=== PATIENT | female | born 1965 | race Caucasian/White ===

== ENCOUNTER 2022-01-21 14:41 | Emergency (ER) | payer MEDICAID, SELFPAY ==
[2022-01-21 15:36] VITALS: BP 108/58; PULSE 67; RESP 18; TEMP 36.9; O2SAT 100; BMI 22.5
--- NOTE | 2022-01-21 16:07 | ED.GENADULT ---
HPI - General Adult General Time Seen by Provider: 16:07 Date Seen: 01/21/22 Chief complaint: Skin/Abscess/Foreign Body Stated complaint: Painful Rash on Face Time Seen by Provider: 01/21/22 15:26 Source: patient Mode of arrival: ambulatory Limitations: no limitations History of Present Illness HPI narrative: Patient is a 56 year white female who has bilateral reddened cheeks inner tender and painful. She has had some cracks in the corner of her mouth bilaterally. No fevers, no chills, no other history of similar illness. She is allergic to Bactrim. She denies immune suppression. Denies cough for COVID symptoms, presents with reddened cheeks that her tender and painful to touch. No allergens are no new medications Related Data Previous Rx's Medication Instructions Recorded cephalexin 500 mg capsule 500 mg PO QID #20 caps 01/21/22 Allergies Allergy/AdvReac Type Severity Reaction Status Date / Time sulfamethoxazole Allergy Verified 01/21/22 15:36 [From Bactrim] trimethoprim [From Bactrim] Allergy Verified 01/21/22 15:36 Review of Systems Status of ROS: Reports: 6 or more systems reviewed and unremarkable except as noted in History and below PFSH PFS Medical History (Updated 01/21/22 @ 16:19 by Maggy Rivera RN) No significant past medical history Surgical History (Updated 01/21/22 @ 16:21 by Maggy Rivera RN) H/O neck surgery H/O rotator cuff surgery H/O tubal ligation H/O: hysterectomy Social History Smoking Status: Current every day smoker How often do you have a drink containing alcohol: monthly or less AUDIT-C Alcohol total score: 1 Non-prescribed substance use: denies use Exam Narrative: Exam Narrative: Objective vital signs unremarkable she is afebrile HEENT shows bilateral cheek warmth she has got some cracking of the corner of her mouth, and there is warmth of her lower maxillary cheeks down toward corners were mouth bilaterally. Throat is clear. Neck is supple. No eye involvement noted. No blisters or herpetic type rash. Const: Vital Signs, click to edit/add: Vital Signs - 24 hr 01/21/22 15:36 Temperature 98.4 F Pulse Rate [Pulse Oximeter] 67 Respiratory Rate 18 Blood Pressure [Ri ght Upper Arm] 108/58 L Pulse Oximetry 100 Oxygen Delivery Me thod Room Air Course Vital Signs Vital signs: Initial Vital Signs Temperature 98.4 F 01/21/22 15:36 Temperature Source Temporal Artery Scan 01/21/22 15:36 Pulse Rate 67 01/21/22 15:36 Pulse Rhythm 01/21/22 15:36 Respiratory Rate 18 01/21/22 15:36 Blood Pressure 108/58 L 01/21/22 15:36 Blood Pressure Mean 74 01/21/22 15:36 Blood Pressure Position Supine 01/21/22 15:36 Pulse Oximetry 100 01/21/22 15:36 Oxygen Delivery Method 01/21/22 15:36 Vital Signs Temperature 98.4 F 01/21/22 15:36 Pulse Rate 67 01/21/22 15:36 Respiratory Rate 18 01/21/22 15:36 Blood Pressure 108/58 L 01/21/22 15:36 Pulse Oximetry 100 01/21/22 15:36 Oxygen Delivery Method 01/21/22 15:36 Temperature 98.4 F 01/21/22 15:36 Pulse Rate 67 01/21/22 15:36 Respiratory Rate 18 01/21/22 15:36 Blood Pressure 108/58 L 01/21/22 15:36 Pulse Oximetry 100 01/21/22 15:36 Oxygen Delivery Method 01/21/22 15:36 Medical Decision Making MDM Narrative Medical decision making narrative: Patient has cracks in the corner of her mouth that certainly could be a entry port for bacteria, but would be unusual to have bilateral cellulitis although she is warm and the areas of the cheek are tender. There is no fluctuance or abscess palpable. I would recommend covering for allergy with Benadryl 50 mg 3 times a day for the next 3-5 days, will give her Rocephin injection 500 mg IM and cover with Keflex 500 q.i.d. x5 days. Warm pack the cheeks bilaterally, update primary care in the next couple of days, may use a topical lotion as needed. Discharge Plan Discharge Clinical Impression: Cellulitis Patient Disposition: Home w/ Parent or Adult Condition: Stable Instructions: Cellulitis (ED), Warm Compress or Soak (ED) Additional Instructions: Keflex for home 4 times a day x5 days, warm compresses to the cheeks, Benadryl 25-50 mg 3 times a day for the next 3-5 days, update primary care doctor in 2 days with symptoms, return sooner worsening or changes. Activity Level: No Restrictions Discharge Diet: Regular Prescriptions: New cephalexin 500 mg capsule 500 mg PO QID Qty: 20 0RF Stand Alone Forms: [employer] Info Instructions
[2022-01-21] MEDS: diphenhydrAMINE 25 MG CAPSULE 50 MG PO (16:15)
[2022-01-21] MEDS: cefTRIAXone 500 MG VIAL IM (16:15)
== END 2022-01-21 16:29 | disposition home or self-care (01) ==
LOC: ED 16:14
PROVIDERS: Emergency Provider Family Medicine; PCP Physician Assistant Medical
DX: L03.211 Cellulitis of face (principal)
CPT/HCPCS: 96372; 99283; 99284; A9270; J0696

== ENCOUNTER 2022-03-15 12:46 | Emergency (ER) | payer MEDICAID, SELFPAY ==
[2022-03-15 12:56] VITALS: BP 100/69; PULSE 72; RESP 16; TEMP 36.6; O2SAT 95; BMI 22.6
--- NOTE | 2022-03-15 13:15 | CRLHL7_ITS ---
For Patients: As a result of the Century Cures Act, medical imaging exams and procedure reports are released immediately into your electronic medical record. You may view this report before your referring provider. If you have questions, please contact your health care provider. INDICATION: History of DVT, right calf tenderness. COMPARISON: None. TECHNIQUE: A compression venous ultrasound exam was performed of the right lower extremity using dempsey-scale imaging, color Doppler and spectral Doppler analysis. FINDINGS: Sonographic imaging of the right lower extremity demonstrates normal compressibility and color Doppler venous blood flow within the common femoral vein, femoral vein, deep femoral vein, and the proximal greater saphenous vein. There is incompressible thrombus within the right popliteal, posterior tibial, and peroneal veins. There is minimal flow in the popliteal vein. No flow in the posterior tibial or peroneal veins. IMPRESSION: 1. Positive for acute DVT in the right popliteal, posterior tibial, and peroneal veins. 2. Findings discussed with Graciela James at 2:28 p.m. on 03/15/2022. Dictated by Xochitl Armando MD @ 03/15/2022 2:24:58 PM (Electronically Signed)
--- NOTE | 2022-03-15 14:34 | ED_ITS ---
HPI - General Adult General Chief complaint: Extremity Pain/Injury, Lower Stated complaint: poss blood clot in right leg Time Seen by Provider: 03/15/22 14:27 Source: patient Mode of arrival: ambulatory Limitations: no limitations History of Present Illness HPI narrative: 56-year-old female coming in today with leg pain of the right lower extremity it has been present for about 4 days. She denies any trauma to the leg. She states that it is swollen. Patient does have a history of DVT. States that she had a blood clot in the left lower extremity as well as a PE in the past. Has not been on any blood thinners for many years. She denies any chest pain or SOB. No back pain, no cough. Related Data Previous Rx's Medication Instructions Recorded cephalexin 500 mg capsule 500 mg PO QID #20 caps 01/21/22 apixaban 5 mg (74 tabs) tablets in 5 mg PO BID #74 ea 03/15/22 a dose pack (Eliquis DVT-PE Treat 30D Start) Allergies Allergy/AdvReac Type Severity Reaction Status Date / Time sulfamethoxazole Allergy Verified 01/21/22 15:36 [From Bactrim] trimethoprim [From Bactrim] Allergy Verified 01/21/22 15:36 Review of Systems Status of ROS: Reports: 10 or more systems reviewed and unremarkable except as noted in History and below [facility] Medical History No significant past medical history Surgical History H/O neck surgery H/O rotator cuff surgery H/O tubal ligation H/O: hysterectomy Social History Smoking Status: Current every day smoker How often do you have a drink containing alcohol: monthly or less AUDIT-C Alcohol total score: 1 Non-prescribed substance use: denies use Exam Narrative: Exam Narrative: Well-nourished well-developed patient in no acute distress. Alert and oriented. Answers questions appropriately. Mood and affect are appropriate. Thoughts are goal oriented and rational. No tangential or magical thinking noted. Patient speaks in full sentences without needing to catch her breath. HEENT: Normocephalic atraumatic. Pupils are equally round reactive to light. Extraocular muscles are intact. Conjunctivae are moist without any icterus noted. Moist mucous membranes. Posterior pharynx is normal. Cardiovascular: Heart is regular rate and rhythm S1 and S2 are present without any murmurs. Lungs: Clear to auscultation bilaterally no wheezes rhonchi or rales are appreciated. Patient takes deep breaths without any discomfort. Extremities: Left lower extremity unremarkable. Right lower extremity is tender to palpation from the knee to the ankle, the area is swollen. It looks like she has chronic venous discoloration of that ankle as well. Skin: Well perfused . Const: Vital Signs, click to edit/add: Vital Signs - 24 hr 03/15/22 12:56 Temperature 97.8 F Pulse Rate [Pulse Oximeter] 72 Respiratory Rate 16 Blood Pressure [Ri ght Upper Arm] 100/69 Pulse Oximetry 95 Oxygen Delivery Me thod Room Air Course Course Hospital Course: Right lower quadrant ultrasound does show DVTs. Vital Signs Vital signs: Initial Vital Signs Temperature 97.8 F 03/15/22 12:56 Temperature Source Temporal Artery Scan 03/15/22 12:56 Pulse Rate 72 03/15/22 12:56 Pulse Rhythm 03/15/22 12:56 Respiratory Rate 16 03/15/22 12:56 Blood Pressure 100/69 03/15/22 12:56 Blood Pressure Mean 79 03/15/22 12:56 Blood Pressure Position Sitting 03/15/22 12:56 Pulse Oximetry 95 03/15/22 12:56 Oxygen Delivery Method 03/15/22 12:56 Vital Signs Temperature 97.8 F 03/15/22 12:56 Pulse Rate 72 03/15/22 12:56 Respiratory Rate 16 03/15/22 12:56 Blood Pressure 100/69 03/15/22 12:56 Pulse Oximetry 95 03/15/22 12:56 Oxygen Delivery Method 03/15/22 12:56 Temperature 97.8 F 03/15/22 12:56 Pulse Rate 72 03/15/22 12:56 Respiratory Rate 16 03/15/22 12:56 Blood Pressure 100/69 03/15/22 12:56 Pulse Oximetry 95 03/15/22 12:56 Oxygen Delivery Method 03/15/22 12:56 Medical Decision Making MDM Narrative Medical decision making narrative: 56-year-old female with prior history of DVT and PE presenting with a DVT today. She will be started on Eliquis. Given her extensive history and her extensive DVT and presentation today I do recommend a chest CT to rule out PE as well however patient refuses. She will follow up with her primary care provider this coming week. We discussed the possibility of needing vascular intervention - this is a conversation I would like for her to have with her primary care provider. Imaging Data Right lower extremity DVT: Attestation: I have reviewed the pertinent imaging results. Radiologist's impression: A compression venous ultrasound exam was performed of the right lower extremity using dempsey-scale imaging, color Doppler and spectral Doppler analysis. FINDINGS: Sonographic imaging of the right lower extremity demonstrates normal compressibility and color Doppler venous blood flow within the common femoral vein, femoral vein, deep femoral vein, and the proximal greater saphenous vein. There is incompressible thrombus within the right popliteal, posterior tibial, and peroneal veins. There is minimal flow in the popliteal vein. No flow in the posterior tibial or peroneal veins. IMPRESSION: 1. Positive for acute DVT in the right popliteal, posterior tibial, and peroneal veins. Discharge Plan Discharge Clinical Impression: DVT (deep venous thrombosis) Patient Disposition: Home, Self-Care Condition: Stable Additional Instructions: Follow-up with your primary care provider this next coming week to discuss next steps. Start Eliquis right away. Prescriptions: New Eliquis DVT-PE Treat 30D Start 5 mg (74 tabs) tablets,dose pack 5 mg PO BID Qty: 74 0RF No Action cephalexin 500 mg capsule 500 mg PO QID Qty: 20 0RF Follow Up/Referrals: Ava Chirinos PA-C [Primary Care Provider] - Stand Alone Forms: [employer] Info Instructions
--- OUTSIDE RECORDS SUMMARY | 2022-03-15 14:39 | XMS_ITS | Clinical Summary ---
:1965 Author Organization [facility] [place] [address] Care Team Providers Name Role Phone Marquise Hernández MD Unavailable [phone] Dain Stephens MD Unavailable [facility] Unavailable Unavailable Ava Chirinos Primary Care Provider [phone] Allergies Active Allergy Reactions Severity Noted Date Comments Sulfamethoxazole Rash 01/10/2015 Sulfamethoxazole-Trimethoprim Rash 01/10/2015 Medications Medication Sig Dispensed Refills Start End Date Status Date topiramate (TOPAMAX) Take 50 mg by 0 Active 50 mg tablet mouth at bedtime. HYDROcodone-acetamin 0 Active ophen, 7.5-325 mg, 0 (NORCO 7.5-325) 7.5-325 mg per tablet methocarbamoL 1 or 2 tabs 180 tablet 2 Act terra (ROBAXIN) 500 mg at night for 0 tabletIndications: muscle Chronic bilateral relaxer. low back pain with left-sided sciatica meclizine (ANTIVERT) Take 1 tablet 15 tablet 0 Active 12.5 mg by mouth 3 0 tabletIndications: times daily Dizziness if needed. gabapentin TAKE TWO 0 Active (NEURONTIN) 300 mg CAPSULES BY 1 capsule MOUTH TWICE A DAY aluminum-magnesium TAKE 30ML BY 355 mL 0 Active hydroxide-simethicon MOUTH FOUR 1 e (Mintox Maximum TIMES A DAY Strength) 400-400-40 IF NEEDED FOR mg/5 mL GI UPSET OR suspensionIndication HEARTBURN s: Gastroesophageal reflux disease, unspecified whether esophagitis present oxyCODONE 0 Active (ROXICODONE) 5 mg 2 immediate release tablet divalproex (DEPAKOTE Take 4 120 Tablet 2 Active ER) 500 mg Tablets 2 Extended-Release (2,000 mg) by tabletIndications: mouth at Bipolar 1 disorder bedtime. (HC) hydrOXYzine HCL Take 1-2 60 Tablet 3 Acti ve (ATARAX) 25 mg tablets by 2 tabletIndications: mouth at Anxiety bedtime. lurasidone (Latuda) Take 1 Tablet 30 Tablet 2 Active 80 mg (80 mg) by 2 tabletIndications: mouth with Bipolar 1 disorder dinner. (HC) sertraline (ZOLOFT) Take 1 Tablet 30 Tablet 1 Active 50 mg (50 mg) by 2 tabletIndications: mouth once Chronic daily. post-traumatic stress disorder (PTSD) traZODone (DESYREL) Take one-half 90 Tablet 3 Active 50 mg to three 2 tabletIndications: tablets by Insomnia, mouth at unspecified type bedtime if needed for sleep. pantoprazole Take 1 Tablet 90 Tablet 3 Act terra (PROTONIX) 40 mg (40 mg) by 2 delayed-release mouth once tabletIndications: daily. Gastroesophageal reflux disease, unspecified whether esophagitis present tolterodine (DETROL Take 1 90 Capsule 3 Active LA) 2 mg Capsule (2 2 Extended-Release mg) by mouth capsuleIndications: once daily. Urge incontinence nitrofurantoin Take 1 90 Capsule 3 Acti ve macrocrystals/monohy Capsule (100 2 drate (MACROBID) 100 mg) by mouth mg once daily. capsuleIndications: Recurrent UTI diazePAM (VALIUM) 2 Take 1 tablet 2 Tablet 0 Active mg 1/2 hour 2 tabletIndications: prior to mri, Paresthesias may repeat x 1 albuterol HFA Inhale 1-2 1 Each 2 02/20/20 Disco ntinued (Ventolin HFA) 90 Puffs by 1 22 (* Patient states mcg/actuation mouth every 6 no longer inhalerIndications: hours if taking/Not on SOB (shortness of needed. se nding facility breath) list) aluminum-mag Take 30 mL by 355 mL 0 02/20/20 Dis continued hydroxide-simethicon mouth 4 times 1 (*Patient states e (MAALOX PLUS; daily if no l onger MYLANTA) needed for GI taking /Not on suspensionIndication Upset or sending facility s: Epigastric Heartburn. list) abdominal pain, Acute superficial gastritis without hemorrhage nabumetone (RELAFEN) Take 1 Tablet 60 Tablet 0 02/19 Discontinued 500 mg (500 mg) by 2 22 (*Patien t states tabletIndications: mouth two n o longer Chronic pain of both times daily taking/Not on knees with meals. sending facility list) predniSONE 2 tabs daily 11 Tablet 0 03/02/20 d (DELTASONE) 20 mg for 3 days, 1 2 tabletIndications: tab daily for Chronic pain of both 3 days, and knees 1/2 tab daily for 4 days. 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 Feb 2019: Dr. Stephens did left Shoulder bursa injection. Chronic bilateral low back pain with left-sided sciati ca 08/20/2017 Overview: ~ August 2017: L4-L5 [place] epidural steroid injection by Dr. Ellington. ~ June 2018: L4-L5 Interlaminar epidu ral steroid injection by Dr. Ellington, Controlled substance agreement signed 12/09/2016 Overview: Signed 03-16-15 Lorin Costello, [place] , VAULT ATTENDANT/psychiatry. Hyperplastic colon polyp 02/21/2016 Overview: Colonoscopy 02/2016 hyperplastic colon po lyps, colon biopsies normal repeat in 10 years Chronic post-traumatic stress disorder (PTSD) 02/03/20 15 Encounter for long-term (current) use of medications 0 02/02/2015 Bipolar 1 disorder 01/10/2015 Anxiety Chronic neck pain Resolved Problems Problem Noted Date Resolved Date Depression 03/04/2016 Encounters Date Type Specialty Care Team Description 03/14/2022 Hospital Encounter Roger Welch MD 03/14/2022 Travel 03/06/2022 Office Visit Roger Welch Consult MD Praveen (Consult-Christian mendez) 03/06/2022 Travel 02/20/2022 Telephone Ava Chirinos Results [facility] Lees 02/20/2022 Telephone Ava Chirinos Results [facility] 02/19/2022 Office Visit Dain Stephens Consult (Bilat eral knee MD Khris pain left worse than right ) 02/19/2022 Office Visit Ava Chirinos Physical (7 4 years old); JAYSON Lees Concerns (Tingl ing on L side of head an d ear x 5 months); Ear Pr oblem (Ringing in ear s x years) 02/19/2022 Ancillary Procedure 02/19/2022 Travel 02/16/2022 Refill Ava Chirinos Refill Requ JAYSON Madrigal (Tolterodine) 02/12/2022 Phone Office Visit Service, [facility] Management; MD Fabrice Follow Up 02/07/2022 Telephone Ava Chirinos Lab (Hep C Screening) [facility]es 02/07/2022 Telephone Ava Chirinos Lab (Low Do se CT Scan [facility] Lees for Lung Cancer /) 02/07/2022 Telephone Ava Chirinos Test Result s [facility]es 02/06/2022 Ancillary Procedure 02/06/2022 Office Visit Ava Chirinos Arthritis ( Both knees x [facility] Lees 6 months) 02/06/2022 Travel 01/24/2022 Refill Ava Chirinos Refill Requ est [facility]es (Tolterodine) 12/20/2021 Office Visit Service, Vero Avina MD 12/20/2021 Travel from Last 3 Months Immunizations Name Administration Dates Next Due AMB INFLUENZA, IIV4 (AGE=>6MOS) MDV 03/19/2018 (Flu Clinic Only) AMB Influenza, IIV4 PF (=>6 mos 05/06/2016 Flulaval,Fluzone Fluarix)(Flu Clinic Only) COVID-19 vaccine (Ice EnergyJ&J) PF, 08/19/2020 MDV COVID-19 vaccine (Inviragen 02/19/2022 30mcg/0.3mL) 12YO+ BIVALENT BOOSTER PF, MDV Influenza, IIV3 (Age >=3 years) 02/14/2015 Influenza, IIV4 02/19/2022, 03/16/2021, 03/17/2019, 04/15/2017 Pneumococcal Conj 20-valent (Prevnar 02/19/2022 20) Tdap 02/14/2015 Zoster (Shingrix-RZV, recombinant) 03/16/2021, 11/13/2020 Family History Medical History Relation Name Comments Drug Abuse Brother Psychiatric illness Brother Good Health Daughter 1 Good Health Daughter 2 Diabetes Father Heart Disease Father Hypertension Father Stroke Father Drug Abuse Half-Brother Psychiatric illness Half-Brother depression Good Health Half-Sister Other Maternal Grandfather Cancer Mother lung Diabetes Mother Hypertension Mother Other Other Chronic neck jenni n Good Health Son Relation Name Status Comments Brother Daughter 1 Daughter 2 Father Half-Brother Half-Sister Other Maternal Grandfather Mother Other Son Social History Tobacco Use Types Packs/Day Years Used Date Current Every Day Smoker Cigarettes 1 38 Sta rted: 09/05/2017 Smokeless Tobacco: Never Used Tobacco Cessation: Ready to Quit: Yes Comments: refused handouts Alcohol Use Standard Drinks/Week Comments Not Currently 0 (1 standard drink = 0.6 oz pure alcoho l) on occasion Alcohol Habits Answer Date Recorded How often do you have a drink containing alcohol? Monthly or less 11/30/2019 How many drinks containing alcohol do you have on a Not aske d typical day when you are drinking? How often do you have six or more drinks on one Not asked occasion? Comment: on occasion 01/16/2017 Sex Assigned at Date Recorded Not on file COVID-19 Exposure Response Date Recorded In the last 10 days, have you been in contact with No / Unsu re 03/14/2022 9:42 AM CDT someone who was confirmed or suspected to have Coronavirus/COVID-19? Obstetrics History Para Term AB IAB SAB Ectopic Multiple Living Live Births 5 3 Date Outcome GA Total Labor/2nd/3rd Weight Sex Delivery Anes PTL Laverne A 1 A5 Name Clin Labor Last Filed Vital Signs Vital Sign Reading Time Taken Comments Blood Pressure 113/69 03/06/2022 2:48 PM CDT Pulse 66 03/06/2022 2:48 PM CDT Temperature 37 ??C (98.6 ??F) 02/21/2021 12:01 PM CDT Respiratory Rate 16 02/21/2021 12:01 PM CDT Oxygen Saturation 97% 03/06/2022 2:48 PM CDT Inhaled Oxygen Concentration - - Weight 61.9 kg (136 lb 6.4 oz) 03/06/2022 2:48 PM CDT Height 165.1 cm (5' 5) 02/19/2022 11:51 AM CDT Body Mass Index 22.7 02/19/2022 11:51 AM CDT Plan of Treatment Health Maintenance Due Date Last Done Comments Low Dose CT (for lung CA) age 0106/15/2017 08/19/2016 50-80 Depression screening for age 12+ 02/12/2023 02/12/2022, , 12/02/2019, Additional history exists BMI (ht and wt on same day) for 02/19/2023 02/19/2022, 12/07, age 18+ 07/16/2021, Additional history exists Mammogram for age 45-75 02/19/2023 02/19/2022, 05/06/2016, 05/03/2015, Additional history exists Tetanus booster 02/14/2025 02/14/2015 Colonoscopy through age 75 02/19/2026 02/20/2016, 6, 02/20/2016 Lipids for age 45-75 08/27/2026 08/27/2021, 11/05/2018, 04/25/2015 Tdap Completed 02/14/2015 Zoster (shingles) series for age Completed 03/16/2021, 12/2020 50+ COVID-19 vaccine series Completed 02/19/2022, 06/21/2021, 08/19/2020 Hepatitis C screening for age Completed 02/19/2022 18-79 Influenza for age 50-64 Completed 02/19/2022, 03/16/2021, 03/17/2019, Additional history exists Pneumococcal series for age 19-64 Completed 02/19/2022 Procedures Procedure Name Priority Date/Time Associated Diagnosis Comme nts ANTI HCV Routine 02/19/2022 12:53 PM Need for hepatitis C Results for this CDT screening test procedure are in the results section. XR MAMMO BILAT Routine 02/19/2022 11:42 AM Breast cancer Resul ts for this SCREENING CDT screening procedure are i n the results section. XR KNEE WB 2 VIEWS Routine 02/06/2022 3:35 PM Chronic pain of both Results for this BILATERAL AND 1 CDT knees procedure ar e in VIEW BILATERAL the results section. from Last 3 Months Results ANTI HCV (02/19/2022 12:53 PM CDT) [facility] Method Time Signature HEPATITIS C Non-Reacti Non-Reacti 02/20/2022 [facility] ANTIBODY ve ve 1:31 PM CDT [facility] Comment: Antibodies to HCV not detected; does not exclude the possibility of exposure to HCV. Specimen Anatomical Collection Method / Collection Time Recei cristiano Time (Source) Location / Volume Laterality Blood BLOOD SPECIMEN / Venipuncture / 02/19/2022 12:53 02/19 Unknown Unknown PM CDT 12:53 PM CDT [facility] SEND OUTS Performing Organization Address City/State/ZIP Code Phon e Number [facility] [address] [place] [address] [facility]AT[facility] LABORATORY XR MAMMO BILAT SCREENING (02/19/2022 11:42 AM CDT) Anatomical Region Laterality Modality BREASTS, Breast Left, Breast Right Bilateral Mammo graphy Specimen (Source) Anatomical Location Collection Method / Collectio n Time Received Time / Laterality Volume Impressions 02/19/2022 1:27 PM CDT ??There is no radiographic evidence for malignancy. ??Recommend annual mammograms. MAMMOGRAM ASSESSMENT: ??ACR 1 Negative PATIENTS: You will also receive a letter with your examination results in an easy to read format. ??If you have qu estions about your results, please contact your referring provider. Narrative 02/19/2022 1:27 PM CDT For Patients: As a result of the s Act, medical imaging exams and procedure reports are released immediately into your electronic medical record. You may view this report before your referring provider. If you have questions, please contact [facility] provider. XR MAMMO BILAT SCREENING [[id number]] CLINICAL HISTORY: ??This is an asymptoma tic 56 y.o. patient. INDICATION FOR EXAM: Mammogram Screening . TECHNIQUE: CC & MLO views were obtained. ??This study was evaluated with the assistance of Computer-Aided Detecti on. COMPARISON FILM: Yes 05/06/16 [facility] 04/25/15 [facility] FINDINGS: ??The breasts are heterogeneou sly dense, which may obscure small masses. There are no dominant masses, glass spicious micro calcifications or areas of architectural distortion. [facility]ER MAMMO XR KNEE WB 2 VIEWS BILATERAL AND 1 VIEW BILATERAL (02/06/2022 3:35 PM CDT) Anatomical Region Laterality Modality KNEES Computed Radiography Specimen (Source) Anatomical Collection Method Collection Time Re ceived Time Location / / Volume Laterality 02/06/2022 6:42 PM CDT Narrative 02/06/2022 6:42 PM CDT For Patients: ??As a result of the s Act, medical imaging exams and procedure report s are released immediately into your [facility] medical record. ??You may view this report before your referring provider. ??If you have questions, please contact your health care provider. Indication: Chronic pain of both knees. Technique: Three views. Comparison: None. Findings/Impression: Right knee: No fracture or malalignment. No joint space narrowing or significant osteophytes. Neutral patellar tracking. Left knee: No fracture or malalignment. No joint space narrowing or significant osteophytes. Neutral patellar tracking. Dictated by Chase Barboza MD @ Feb 06 ??6:42PM (Electronically Signed) ?? Procedure Note Chase Barboza MD - 02/06/2022Form atting of this note might be different from the original. For Patients: As a result of the ntury Cures Act, medical imaging exams and procedure reports are released immediately into your electronic medical record. You may view this report before your referring provider. If you have questions, please contact yo health care provider. Indication: Chronic pain of both knees. Technique: Three views. Comparison: None. Findings/Impression: Right knee: No fracture or malalignment. No joint space narrowing or significant osteophytes. Neutral patellar tracking. Left knee: No fracture or malalignment. No joint space narrowing or significant osteophytes. Neutral patellar tracking. 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
== END 2022-03-15 15:05 | disposition home or self-care (01) ==
PROVIDERS: Emergency Provider Family Medicine; PCP Physician Assistant Medical
DX: I82.501 Chronic embolism and thrombosis of unspecified deep veins of right lower extremity (principal)
CPT/HCPCS: 93971; 99283; 99284

== ENCOUNTER 2022-09-13 11:26 | Emergency (ER) | payer MEDICAID, SELFPAY ==
[2022-09-13 11:34] VITALS: BP 115/72; PULSE 69; RESP 18; TEMP 36.1; O2SAT 99; BMI 26.5
--- NOTE | 2022-09-13 11:54 | CRLHL7_ITS ---
For Patients: As a result of the Century Cures Act, medical imaging exams and procedure reports are released immediately into your electronic medical record. You may view this report before your referring provider. If you have questions, please contact your health care provider. INDICATION: bilateral calf pain; hx DVT on eliquis COMPARISON: 03/15/2022 TECHNIQUE: A compression venous ultrasound exam was performed of both lower extremities using dempsey scale imaging, color Doppler and spectral Doppler analysis. FINDINGS: Sonographic imaging of the lower extremities demonstrates normal compressibility and color Doppler venous blood flow within the common femoral, deep femoral, and proximal greater saphenous veins. Within the thighs the femoral veins are patent and compressible. At a lower level the popliteal and posterior tibial veins also show normal compressibility and color Doppler venous blood flow. IMPRESSION: No evidence of deep vein thrombosis within either the left or right lower extremity. The previously noted right-sided DVT is no longer present. Dictated by Nestor Sandra MD @ 09/13/2022 12:45:46 PM (Electronically Signed)
--- NOTE | 2022-09-13 11:55 | ED_ITS ---
HPI - General Adult General Chief complaint: Extremity Pain/Injury, Lower Stated complaint: Cramps in calves Time Seen by Provider: 09/13/22 11:38 History of Present Illness HPI narrative: This 57-year-old female comes in reporting bilateral calf pain. She states that this is been present for about a week and reports a fall that occurred prior to this. She is ambulatory. She states that she has a nerve stimulator in her back. She also reports a history of deep venous thrombosis and is currently taking Eliquis. She states that the pain in her calves is bilateral constant. She arrives here with normal vital signs and does not have any chest pain or shortness of breath. Related Data Home Medications Medication Instructions Recorded Confirmed divalproex 500 mg tablet,extended 500 mg PO QDAY 05/14/22 05/14/22 release 24 hr gabapentin 300 mg capsule 600 mg PO QHS 05/14/22 05/14/22 hydrocodone 7.5 mg-acetaminophen tab PO QDAY PRN 05/14/22 05/14/22 325 mg tablet hydroxyzine HCl 25 mg tablet 25 mg PO QHS 05/14/22 05/14/22 lidocaine 5 % topical ointment 1 applic topical QHS PRN 05/14/22 05/14/22 lurasidone 80 mg tablet (Latuda) 80 mg PO QDAY 05/14/22 05/14/22 nitrofurantoin 100 mg PO DAILY 05/14/22 05/14/22 monohydrate/macrocrystals 100 mg capsule pantoprazole 40 mg tablet,delayed 40 mg PO QDAY 05/14/22 05/14/22 release sertraline 50 mg tablet 50 mg PO QDAY 05/14/22 05/14/22 tolterodine 2 mg capsule,extended 2 mg PO QDAY 05/14/22 05/14/22 release 24 hr topiramate 50 mg tablet 50 mg PO QDAY 05/14/22 05/14/22 trazodone 50 mg tablet 50 mg PO QHS PRN 05/14/22 05/14/22 Previous Rx's Medication Instructions Recorded apixaban 5 mg (74 tabs) tablets in 5 mg PO BID #74 ea 03/15/22 a dose pack (Eliquis DVT-PE Treat 30D Start) cyclobenzaprine 10 mg tablet 10 mg PO TID #15 tabs 09/13/22 Allergies Allergy/AdvReac Type Severity Reaction Status Date / Time sulfamethoxazole Allergy Verified 05/14/22 14:29 [From Bactrim] trimethoprim [From Bactrim] Allergy Verified 05/14/22 14:29 Review of Systems Status of ROS: Reports: 10 or more systems reviewed and unremarkable except as noted in History and below Narrative: Constitutional: No fevers, no weight gain or loss. Eyes: No discharge. No vision changes. HENT: No congestion, no sore throat, no ear pain. Cardiovascular: No chest pain, no palpitations. Respiratory: No shortness of breath, no wheezes, no cough. Gastrointestinal: No abdominal pain, no vomiting, no diarrhea. Genitourinary: No dysuria, no hematuria. Musculoskeletal: Normal range of motion. Chronic low back pain. Bilateral lower leg pain in the calf region. Skin: No rashes, no pruritis. Neurological: No dizziness, weakness, sensory change, speech change. Endo/Heme/Allergies: No bruising or bleeding. No polydipsia. Pysch: no suicidality, no anxiety, no insomnia. All other systems reviewed and are negative. [facility] Medical History No significant past medical history Surgical History H/O neck surgery H/O rotator cuff surgery H/O tubal ligation H/O: hysterectomy Social History Smoking Status: Current every day smoker What tobacco products do you use: cigarettes How often do you have a drink containing alcohol: monthly or less AUDIT-C Alcohol total score: 1 Non-prescribed substance use: denies use Exam Narrative: Exam Narrative: Constitutional: Well-developed, well-nourished, no acute distress. HEENT: Normocephalic, atraumatic. Neck: Normal range of motion. Nontender. Supple. Heart: Regular. No murmurs. Normal rate. Intact distal pulses. Lungs: Clear to auscultation. No chest discomfort. No wheezes, rhonchi, or rales. Abdomen: Normal bowel sounds. Nontender. No rebound tenderness. Genitalia: Deferred. Back: No midline tenderness. Normal range of motion. Extremities: Normal range of motion. No injury. No obvious swelling in either extremity. Skin: Intact. No rash. Warm. No erythema or pallor. Neurologic: No altered sensation. No weakness. Alert and oriented. Psychiatric: No suicidality. No anxiety or depression. No insomnia. Nursing notes and vitals signs are reviewed. Const: Vital Signs, click to edit/add: Vital Signs - 24 hr 09/13/22 11:34 Temperature 96.9 F L Pulse Rate [Right Pulse Oximeter] 69 Respiratory Rate 18 Blood Pressure [Ri ght Upper Arm] 115/72 Pulse Oximetry 99 Oxygen Delivery Me thod Room Air Course Vital Signs Vital signs: Initial Vital Signs Temperature 96.9 F L 09/13/22 11:34 Temperature Source Temporal Artery Scan 09/13/22 11:34 Pulse Rate 69 09/13/22 11:34 Respiratory Rate 18 09/13/22 11:34 Blood Pressure 115/72 09/13/22 11:34 Blood Pressure Mean 86 09/13/22 11:34 Blood Pressure Position Sitting 09/13/22 11:34 Pulse Oximetry 99 09/13/22 11:34 Oxygen Delivery Method Room Air 09/13/22 11:34 Vital Signs Temperature 96.9 F L 09/13/22 11:34 Pulse Rate 69 09/13/22 11:34 Respiratory Rate 18 09/13/22 11:34 Blood Pressure 115/72 09/13/22 11:34 Pulse Oximetry 99 09/13/22 11:34 Oxygen Delivery Method Room Air 09/13/22 11:34 Temperature 96.9 F L 09/13/22 11:34 Pulse Rate 69 09/13/22 11:34 Respiratory Rate 18 09/13/22 11:34 Blood Pressure 115/72 09/13/22 11:34 Pulse Oximetry 99 09/13/22 11:34 Oxygen Delivery Method Room Air 09/13/22 11:34 Medical Decision Making MDM Narrative Medical decision making narrative: This patient is reporting bilateral calf pain. She does take Eliquis because of a history of deep venous thrombosis. She is concerned that she may have a recurrent clot. Ultrasound of her legs shows no findings of DVT. This was reassuring to the patient. She did receive a prescription for Flexeril. Her symptoms are more likely musculoskeletal. Discharge Plan Discharge Clinical Impression: Bilateral leg pain Patient Disposition: Home, Self-Care Condition: Stable Additional Instructions: Take medication as needed and indicated. Activity as tolerated. Follow up with MD or return if worsening. Prescriptions: New cyclobenzaprine 10 mg tablet 10 mg PO TID Qty: 15 0RF No Action hydrocodone-acetaminophen 7.5-325 mg tablet PO QDAY PRN trazodone 50 mg tablet 50 mg PO QHS PRN Patient Comments: TAKE ONE-HALF TO THREE TABLETS (25-150 MG) BY MOUTH AT BEDTIME IF NEEDED FOR SLEEP. sertraline 50 mg tablet 50 mg PO QDAY Patient Comments: TAKE ONE TABLET BY MOUTH DAILY gabapentin 300 mg capsule 600 mg PO QHS nitrofurantoin monohyd/m-cryst 100 mg capsule 100 mg PO DAILY topiramate 50 mg tablet 50 mg PO QDAY hydroxyzine HCl 25 mg tablet 25 mg PO QHS Patient Comments: TAKE 1 TO 2 TABLETS (25-50MG) BY MOUTH AT BEDTIME divalproex 500 mg tablet extended release 24 hr 500 mg PO QDAY pantoprazole 40 mg tablet,delayed release (DR/EC) 40 mg PO QDAY tolterodine 2 mg capsule,extended release 24hr 2 mg PO QDAY Patient Comments: TAKE 1 CAPSULE (2 MG) BY MOUTH ONCE DAILY. Latuda 80 mg tablet 80 mg PO QDAY Patient Comments: TAKE ONE TABLET (80MG) BY MOUTH ONCE DAILY WITH DINNER lidocaine 5 % ointment 1 applic topical QHS PRN Patient Comments: APPLY BY TOPICAL ROUTE 1 - 3 TIMES EVERY DAY TO AFFECTED AREA(S) NEEDED NEEDED FOR NERVE PAIN Eliquis DVT-PE Treat 30D Start 5 mg (74 tabs) tablets,dose pack 5 mg PO BID Qty: 74 0RF Follow Up/Referrals: Ava Chirinos PA-C [Primary Care Provider] - Stand Alone [facility] Instructions
--- OUTSIDE RECORDS SUMMARY | 2022-09-13 12:00 | XMS_ITS | Continuity of Care Document ---
Author Name Unknown Organization [facility] Address [address] [place] [address] Care Team Providers Care Brick Kiln Burner Name Role Phone Navneet Urena CRNA Unavailable Unavailable Procedures Procedure Date ANESTH, HEAD/NECK/PTRUNK Percutaneous Image guided neuromodulatio n or intra Advance Directives Directive Yes / No Effective Date File Name No Information Encounters Encounter Description Practice Location Reason(s) For Visit Diagnoses Date Provider Providers Copied on Encounter [facility], [address] [place], [place], [id number], [facility] No Information 2 Romel Toth. [address] [place], [place], [id number] , . [phone] Referring Provider: Wallace Rajput, [address] [place], [address] . tel:[phone] [facility], [address] [place] [address], [id number], [facility] No Information 2 Valente Rasmussen. [address] [place], [place], [id number] , . [phone] Referring Provider: Wallace Rajput, [address] [place], [address] . tel:[phone] Family History Family Member Type Diagnosis Age At Onset No Information Payers Payer name Insurance type Covered libertarian ID Guera chavez(s) [facility] [id number] Social History Type Description Quantity Date Captured Comments Sex Female Smoking Status No Information Chief Complaint And Reason For Visit No Information Reason For Referral Reason For Referral No Information Plan Of Treatment Date Type Action Status No Information History Of Present Illness Encounter Date Complaint History Of Prese nt Illness No Information Functional Status Date Functional Assessmen t No Information Instructions Date Instruction Additional Infor mation No Information Assessments Type Assessment Date No Information Patient Care Teams Name Effective Dates (start - stop) Status Members No Information
--- OUTSIDE RECORDS SUMMARY | 2022-09-13 12:00 | XMS_ITS | Continuity of Care Document ---
Author Name Unknown Organization [facility] Address [address] [place] [id number] Phone Care Team Providers Care Clinical Assistant Name Role Phone [facility] Unavailable Unava ilable Procedures Procedure Date IMPLANT NEUROELECTRODES 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 Implt neurostim elctr each FLUOROGUIDE FOR SPINE INJECT IMPLANT NEUROELECTRODES Imp neurosti pls gn any type IMPLANT NEUROELECTRODES Implt neurostim elctr each IMPLANT NEUROELECTRODES INJ FORAMEN EPIDURAL L/S INJ FORAMEN EPIDURAL L/S Advance Directives Directive Yes / No Effective Date File Name No Information Encounters Encounter Description Practice Location Reason(s) For Visit Diagnoses Date Provider Providers Copied on Encounter [facility], [address] [place] [address], [id number], [place] tel:[phone] [facility] No Information [facility]. [address] [place] [address], [id number], . tel:[phone] Referring Provider: Wallace Rajput, [address] [facility] [place], [address] . tel:[phone] [facility], [address] [place] [address], [id number], [place] tel:[phone] [facility] No Information [facility]. [address] [place] [address], [id number], . tel:[phone] Referring Provider: Wallace Rajput, [address] [facility] [place], [address] . tel:[phone] [facility], [address] [place] [address], [id number], tel:[phone] [facility] No Information [facility]. [address] [place] [address], [id number], . tel:[phone] Referring Provider: Wallace Rajput, [address] [facility] [place], [address] . tel:[phone] Family History Family Member Type Diagnosis Age At Onset No Information Payers Payer name Insurance type Covered green party ID Guera chavez(s) [facility] [id number] Social History Type Description Quantity Date Captured [...]
--- OUTSIDE RECORDS SUMMARY | 2022-09-13 12:01 | XMS_ITS | Continuity of Care Document ---
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 Name Role Phone Dorene LEXYNeil Unavailable Unavailable Allergies, Adverse Reactions, Alerts Substance Reaction Status Criticality trimethoprim HivesHivesHives Active No Informati on sulfamethoxazole HivesHivesHives Active No Infor mation Medications Medication Instructions Dosage Effective Dates (start - stop) Status Comments gabapentin 300 mg capsule take 1 capsule by oral route at HS - Active hydrocodone 7.5 mg-acetaminophen 325 mg tablet take 1 tablet by oral route every 6 hours as needed for pain, max 1-2/day for chronic pain - Active oxycodone 5 mg tablet take 1 tablet by o ral route every 4 - 6 hours as needed for post op pain - Active cephalexin 500 mg capsule take 1 capsule by oral route every 6 hours for prophylactic 500 MG - Active Hibiclens 4 % topical liquid use for shower daily x 3days including the day of the procedure. - Active lorazepam 0.5 mg tablet take 1 tablet by oral route 30 min prior to procedure, then another tab just before the procedure for for procedure - Active Eliquis 2.5 mg tablet take 1 tablet by o ral route 2 times every day 2.5 MG - Active Macrobid 100 mg capsule take 1 capsule by oral route every 24 hours with food 100 MG - Active Zoloft 100 mg tablet take 2 tablet by or al route every day 200 MG - Active Latuda 40 mg tablet take 1 tablet by ora l route every day with food (at least 350 calories) 40 MG - Active Procedures Procedure Date INJ TRIGGER POINT, 06/10 [facility] Kenalog Triamcinolone acetonide inj Foll-up eval q3mo opiod tx OFFICE VISIT, EST TELEMEDICINE Drug Urine Toxology With Chromatography Drug test def 8-14 classes Foll-up eval q3mo opiod tx OFFICE/OUTPATIENT VISIT, EST Foll-up eval q3mo opiod tx OFFICE VISIT, EST TELEMEDICINE INJ TRIGGER POINT, 06/10 [facility] [place] Triamcinolone acetonide inj OFFICE/OUTPATIENT VISIT, EST No Charge For Visit Per Prov PT-FOCUSED HLTH RISK ASSMT Foll-up eval q3mo opiod tx OFFICE/OUTPATIENT VISIT, EST Drug Urine Toxology With Chromatography Drug test def 1-7 classes Foll-up eval q3mo opiod tx OFFICE VISIT, EST TELEMEDICINE SCS Post Op Satellite Foll-up eval q3mo opiod tx OFFICE VISIT, EST TELEMEDICINE SCS Post Op Satellite No Charge For Visit Per Prov IMPLANT NEUROELECTRODES ASC IMPLANT NEUROELECTRODES ASC 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 Foll-up eval q3mo opiod tx OFFICE VISIT, EST TELEMEDICINE ORTHOTIC MGMT AND TRAINING Initial Encou nter No Charge For Visit Per Prov Lower Back LSO Brace IMPLANT NEUROELECTRODES ASC IMPLANT NEUROELECTRODES ASC ANALYZE NEUROSTIM, COMPLEX Foll-up eval q3mo opiod tx OFFICE VISIT, EST TELEMEDICINE Psych Dx Eval Foll-up eval q3mo opiod tx OFFICE VISIT, EST TELEMEDICINE Foll-up eval q3mo opiod tx OFFICE/OUTPATIENT VISIT, EST Drug Urine Toxology With Chromatography Drug test def 8-14 classes Foll-up eval q3mo opiod tx OFFICE VISIT, EST TELEMEDICINE Foll-up eval q3mo opiod tx OFFICE VISIT, EST TELEMEDICINE Foll-up eval q3mo opiod tx OFFICE VISIT, EST TELEMEDICINE Drug Urine Toxology With Chromatography Foll-up eval q3mo opiod tx OFFICE/OUTPATIENT VISIT, EST Foll-up eval q3mo opiod tx OFFICE VISIT, EST TELEMEDICINE Foll-up eval q3mo opiod tx OFFICE/OUTPATIENT VISIT, EST Foll-up eval q3mo opiod tx OFFICE VISIT, EST TELEMEDICINE Disabilty Reports Forms INJ FORAMEN EPIDURAL L/S BILATERAL Aug- Foll-up eval q3mo opiod tx OFFICE VISIT, EST TELEMEDICINE Drug Urine Toxology With Chromatography Drug test def 8-14 classes Foll-up eval q3mo opiod tx OFFICE VISIT, EST TELEMEDICINE Foll-up eval q3mo opiod tx OFFICE VISIT, EST TELEMEDICINE Foll-up eval q3mo opiod tx OFFICE VISIT, EST TELEMEDICINE 20 Foll-up eval q3mo opiod tx OFFICE VISIT, EST TELEMEDICINE 20 Foll-up eval q3mo opiod tx OFFICE VISIT, EST TELEMEDICINE 20 Foll-up eval q3mo opiod tx OFFICE/OUTPATIENT VISIT, EST Foll-up eval q3mo opiod tx OFFICE/OUTPATIENT VISIT, EST Drug test def 8-14 classes Drug Urine Toxology DAST 15-30 MIN OFFICE/OUTPATIENT VISIT, NEW Advance Directives Directive Yes / No Effective Date File Name No Information Encounters Encounter Description Practice Location Reason(s) For Visit Diagnoses Date Provider Providers Copied on Encounter [facility], [address] [place] [address], [id number] , [place] tel:[phone] [facility] [place] Myalgia, other site 3 Dorene Trejo. [address] [facility] [address], [place], [place], [id number] , [place]. tel:[phone] Referring Provider: Ferny Rider, [address] [place], [address]. tel:[phone] OFFICE VISIT, EST TELEMEDICINE [facility], [address] [place] [address], [id number] , [place] tel:[phone] [facility] low back pain (chief complaint) DepressionChronic pain syndromeRadiculop athy, cervical regionRadiculopat hy, lumbar regionFibromyalgi aPostlaminectomy syndrome, not elsewhere classifiedLong term (current) use of opiate analgesic 3 Jerrod Jones. [address] [facility] [address], [place], [place], [id number] , [place]. tel:[phone] [facility], [address] [place] [address], [id number] , [place] tel:[phone] [facility] [place] No Information 3 Jerrod Jones. [address] [facility] [address], [place], [id number] , [place]. tel:[phone] OFFICE/OUTPAT IENT VISIT, [facility], [address] [place] [address], [id number] , [place] tel:[phone] [facility] low back pain (chief complaint) DepressionChronic pain syndromeRadiculop athy, lumbar regionFibromyalgi aPostlaminectomy syndrome, not elsewhere classifiedLong term (current) use of opiate analgesicRadiculo henny, cervical region 3 Jerrod Karen. [address] [facility] [address], [place], [id number] , [place]. tel:[phone] Referring Provider: Ferny Rider, [address] [place] [address], [address]. [phone] OFFICE VISIT, [facility], [address] [place] [address], [id number] , [place] tel:[phone] [facility] low back pain (chief complaint) DepressionChronic pain syndromeOther intervertebral disc degeneration, lumbar regionRadiculopat hy, lumbar regionFibromyalgi aPostlaminectomy syndrome, not elsewhere classifiedLong term (current) use of opiate analgesic Nov-3 2 Lissagianni Karen. [address], [place], [id number] , [place]. tel:[phone] Referring Provider: Ferny Rider, [address] [place] [address], [address]. [phone] OFFICE/OUTPAT IENT VISIT, [facility], [address] [place] [address], [id number] , [place] [phone] [facility] low back pain (chief complaint) Radiculopathy, lumbar regionMyalgia, other site Sep-2 2 Dorene Trejo. [address] [facility] [address], [place], [id number] , [place]. tel:[phone] [facility], [address] [place] [address], [id number] , [place] tel:[phone] [facility] No Information Sep- 2 Will Ferny. [address] [place], [id number] , [place]. tel:[phone] Referring Provider: Ferny Rider, [address] [place] [address], [address]. tel:[phone] OFFICE/OUTPAT IENT VISIT, EST [facility], [address] [place] [address], [id number] , [place] tel:[phone] [facility] low back pain (chief complaint) DepressionChronic pain syndromeOther intervertebral disc degeneration, lumbar regionRadiculopat hy, lumbar regionFibromyalgi aPostlaminectomy syndrome, not elsewhere classifiedLong term (current) use of opiate analgesicEncounte r for screening for other disorderEncounter for therapeutic drug level monitoring Feb- 2 Jerrod Jones. [address] [facility] [address], [place], [place], [id number] , [place]. tel:[phone] Referring Provider: Ferny Rider, [address] [place] [address], [address]. [phone] OFFICE VISIT, EST TELEMEDICINE [facility], [address] [place] [address], [id number] , [place] tel:[phone] [facility] low back pain (chief complaint) DepressionChronic pain syndromeOther intervertebral disc degeneration, lumbar regionRadiculopat hy, lumbar regionFibromyalgi aPostlaminectomy syndrome, not elsewhere classifiedLong term (current) use of opiate analgesic Apr- 2 Jerrod Jones. [address] [facility] [address], [place], [place], [id number] , [place]. tel:[phone] Referring Provider: Ferny Rider, [address] [place] [address], [address]. [phone] OFFICE VISIT, EST TELEMEDICINE [facility], [address] [place] [address], [id number] , [place] tel:[phone] [facility] low back pain (chief complaint) Radiculopathy, lumbar regionOther intervertebral disc degeneration, lumbar regionLong term (current) use of opiate analgesicDepressi onChronic pain syndromeFibromyal giaPostlaminectom y syndrome, not elsewhere classified b- 2 Dorene Trejo. [address] [facility] [address], [place], [place], [id number] , [place]. tel:[phone] [facility], [address] [place] [address], [id number] , [place] tel:[phone] [facility] Radiculopathy, lumbar region Jul- 2 Rashmi Karen. [address] [facility] [address], [place], [place], [id number] , [place]. tel:[phone] Referring Provider: Ferny Rider, [address] [place] [address], [address]. tel:[phone] [facility], [address] [place] [address], [id number] , [place] tel: [phone] [facility] Radiculopathy, lumbar region 2 Rajput Wallace. [address] [place], [place], [id number] , [place]. tel:[phone] Referring Provider: Ferny Rider, [address] [place] [address], [address]. tel:[phone] OFFICE VISIT, EST TELEMEDICINE [facility], [address] [place] [address], [id number] , [place] [phone] [facility] low back pain (chief complaint) Radiculopathy, lumbar regionOther intervertebral disc degeneration, lumbar regionLong term (current) use of opiate analgesicDepressi onChronic pain syndromeFibromyal giaPostlaminectom y syndrome, not elsewhere classifiedTobacco use disorder, moderate b-0 2 Nyongesa Karen. [address] [facility] [address], [place], [place], [id number] , [place]. tel:[phone] Referring Provider: [address], [place], [address]. tel:[phone] [facility], [address] [place] [address], [id number] , [place] tel:[phone] [facility] [place] Other intervertebral disc degeneration, lumbar regionRadiculopat hy, lumbar region 2 Jerrod Jones. [address] [facility] [address], [place], [place], [id number] , [place]. tel:[phone] Referring Provider: Ferny Rider, [address] [place] [address], [address]. [phone] [facility], [address] [place] [address], [id number] , [place] tel:[phone] [facility] No Information 2 Jerrod Jones. [address] [facility] [address], [place], [place], [id number] , [place]. tel:[phone] Referring Provider: Ferny Rider, [address] [place] [address], [address]. [phone] [facility], [address] [place] [address], [id number] , [place] tel:[phone] [facility] Radiculopathy, lumbar region 2 Regulo Gonsalez. [address] [place] [address], [id number] , [place]. [phone] Referring Provider: Ferny Rider, [address] [place] [address], [address]. [phone] OFFICE VISIT, EST TELEMEDICINE [facility], [address] [place] [address], [id number] , [place] [phone] [facility] low back pain (chief complaint) care home (current) use of opiate analgesicDepressi onChronic pain syndromeOther intervertebral disc degeneration, lumbar regionFibromyalgi aPostlaminectomy syndrome, not elsewhere classifiedRadicul opathy, lumbar regionTobacco use disorder, moderate 2 Jerrod Jones. [address] [facility] [address], [place], [id number] , [place]. tel: [phone] Referring Provider: Ferny Rider, [address] [place] [address], [address]. tel:[phone] [facility], [address] [place] [address], [id number] , [place] tel: [phone] [facility] [place] No Information 1 Lissagianni Karen. [address] [facility] [address], [place], [place], [id number] , [place]. tel: [phone] Psych Dx Eval [facility], [address] [place] [address], [id number] , [place] tel: [phone] [facility] Pain disorder with related psychological factorsBipolar disorder 1 Yvonne Beltran. [address] [place], [place], [id number] , [place]. tel: [phone] OFFICE VISIT, EST TELEMEDICINE [facility], [address] [place] [address], [id number] , [place] tel: [phone] [facility] low back pain (chief complaint) care home (current) use of opiate analgesicDepressi onChronic pain syndromeOther intervertebral disc degeneration, lumbar regionFibromyalgi aPostlaminectomy syndrome, not elsewhere classifiedRadicul opathy, lumbar regionTobacco use disorder, moderate 1 Rashmi Karen. [address] [facility] [address], [place], [id number] , [place]. tel: [phone] [facility], [address] [place] [address], [id number] , [place] tel: [phone] [facility] [place] No Information 1 Arpan Isaacs. [address] [place] [address], [id number] , [place]. 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 [address] [facility] [address], [place], [place], [id number] , [place]. tel:[phone] Referring Provider: Ferny Rider, [address] [place] [address], [address]. [phone] [facility], [address] [place] [address], [id number] , [place] tel:[phone] [facility] No Information 1 Nyongesa Karen. [address] [facility] [address], [place], [place], [id number] , [place]. 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 [address] [facility] [address], [place], [id number] , [place]. [phone] Referring Provider: Ferny Rider, [address] [place] [address], [address]. tel:[phone] OFFICE VISIT, EST TELEMEDICINE [facility], [address] [place] [address], [id number] , [place] tel:[phone] [facility] low back pain (chief complaint) Chronic pain syndromeOther intervertebral disc degeneration, lumbar regionFibromyalgi aPostlaminectomy syndrome, not elsewhere classifiedLong term (current) use of opiate analgesicDepressi on 1 Nyongesa Karen. [address] [facility] [address], [place], [place], [id number] , [place]. tel: [phone] Referring Provider: Ferny Rider, [address] [place] [address], [address]. tel:[phone] OFFICE VISIT, EST TELEMEDICINE [facility], [address] [place] [address], [id number] , [place] tel: [phone] [facility] low back pain (chief complaint) Chronic pain syndromeOther intervertebral disc degeneration, lumbar regionFibromyalgi aPostlaminectomy syndrome, not elsewhere classifiedLong term (current) use of opiate analgesicDepressi onTobacco use disorder, moderate 1 Nyongesa Karen. [address] [facility] [address], [place], [id number] , [place]. tel: [phone] Referring Provider: Ferny Rider, [address] [place] [address], [address]. tel:[phone] [facility], [address] [place] [address], [id number] , [place] tel: [phone] [facility] No Information 1 Nyongesa Karen. [address] [facility] [address], [place], [place], [id number] , [place]. tel: [phone] OFFICE/OUTPAT IENT VISIT, EST [facility], [address] [place] [address], [id number] , [place] tel: [phone] [facility] low back pain (chief complaint) Chronic pain syndromeOther intervertebral disc degeneration, lumbar regionFibromyalgi aPostlaminectomy syndrome, not elsewhere classifiedLong term (current) use of opiate analgesicDepressi onTobacco use disorder, moderateRadiculop athy, lumbar regionEncounter for therapeutic drug level monitoring 1 Nyongesa Karen. [address] [facility] [address], [place], [place], [id number] , [place]. tel:[phone] Referring Provider: Ferny Rider, [address] [place] [address], [address]. [phone] OFFICE VISIT, EST TELEMEDICINE [facility], [address] [place] [address], [id number] , [place] [phone] [facility] low back pain (chief complaint) Chronic pain syndromeOther intervertebral disc degeneration, lumbar regionFibromyalgi aPostlaminectomy syndrome, not elsewhere classifiedLong term (current) use of opiate analgesicDepressi onTobacco use disorder, moderateRadiculop athy, lumbar region 1 Nyongesa Karen. [address] [facility] [address], [place], [place], [id number] , [place]. [phone] Referring Provider: Ferny Rider, [address] [place] [address], [address]. [phone] OFFICE/OUTPAT IENT VISIT, [facility], [address] [place] [address], [id number] , [place] [phone] [facility] low back pain (chief complaint) Chronic pain syndromeOther intervertebral disc degeneration, lumbar regionFibromyalgi aPostlaminectomy syndrome, not elsewhere classifiedLong term (current) use of opiate analgesicDepressi onTobacco use disorder, moderateRadiculop athy, lumbar region 1 Nyongesa Karen. [address] [facility] [address], [place], [place], [id number] , [place]. [phone] Referring Provider: Ferny Rider, [address] [place] [address], [address]. tel:[phone] OFFICE VISIT, EST TELEMEDICINE [facility], [address] [place] [address], [id number] , [place] [phone] [facility] low back pain (chief complaint) Chronic pain syndromeOther intervertebral disc degeneration, lumbar regionFibromyalgi aPostlaminectomy syndrome, not elsewhere classifiedLong term (current) use of opiate analgesicDepressi onTobacco use disorder, moderateRadiculop athy, lumbar region Aug- 1 Nyongesa Karen. [address] [facility] [address], [place], [place], [id number] , [place]. [phone] Referring Provider: Ferny Rider, [address] [place] [address], [address]. [phone] [facility], [address] [place] [address], [id number] , [place] [phone] [facility] No Information 1 Nyongesa Karen. [address] [facility] [address], [place], [place], [id number] , [place]. [phone] Referring Provider: Ferny Rider, [address] [place] [address], [address]. tel:[phone] [facility], [address] [place] [address], [id number] , [place] [phone] [facility] Radiculopathy, lumbar region Aug-0 1 Regulo Gonsalez. [address] [place] [address], [id number] , [place]. [phone] Referring Provider: Ferny Rider, [address] [place] [address], [address]. tel:[phone] OFFICE VISIT, EST TELEMEDICINE [facility], [address] [place] [address], [id number] , [place] [phone] [facility] low back pain (chief complaint) Chronic pain syndromeOther intervertebral disc degeneration, lumbar regionFibromyalgi aPostlaminectomy syndrome, not elsewhere classifiedLong term (current) use of opiate analgesicDepressi onTobacco use disorder, moderateRadiculop athy, lumbar region Fe [address], [place], [id number] , [place]. tel:[phone] Referring Provider: Ferny Rider, [address] [place] [address], [address]. [phone] [facility], [address] [place] [address], [id number] , [place] tel:[phone] [facility] No Information 1 Nyongesa Jones. [address] [place] [address] [address], [place], [id number] , [place]. tel:[phone] Referring Provider: Ferny Rider, [address] [place] [address], [address]. [phone] OFFICE VISIT, EST TELEMEDICINE [facility], [address] [place] [address], [id number] , [place] tel:[phone] [facility] low back pain (chief complaint) Chronic pain syndromeOther intervertebral disc degeneration, lumbar regionFibromyalgi aPostlaminectomy syndrome, not elsewhere classifiedLong term (current) use of opiate analgesicDepressi onTobacco use disorder, moderateEncounter for therapeutic drug level monitoring 1 Nyonge Karen. [id number] [place] [address] [address], [place], [id number] , [place]. tel:[phone] Referring Provider: Ferny Rider, [address] [place] [address], [address]. [phone] OFFICE VISIT, EST TELEMEDICINE [facility], [address] [place] [address], [id number] , [place] tel:[phone] [facility] low back pain (chief complaint) Chronic pain syndromeOther intervertebral disc degeneration, lumbar regionFibromyalgi aPostlaminectomy syndrome, not elsewhere classifiedLong term (current) use of opiate analgesicDepressi onTobacco use disorder, moderate 0 Nyongesa Karen. [address] [facility] [address] [facility] [address], [place], [id number] , [place]. tel:[phone] Referring Provider: Ferny Rider, [address] [place] [address], [address]. tel:[phone] OFFICE VISIT, EST TELEMEDICINE [facility], [address] [place] [address], [id number] , [place] tel:[phone] [facility] low back pain (chief complaint) Chronic pain syndromeOther intervertebral disc degeneration, lumbar regionFibromyalgi aPostlaminectomy syndrome, not elsewhere classifiedLong term (current) use of opiate analgesicDepressi onTobacco use disorder, moderate Nov-1 0-202 [id number] [place] [address] [address], [place], [place], [id number] , [place]. [phone] Referring Provider: Ferny Rider, [address] [place] [address], [address]. tel:[phone] OFFICE VISIT, EST TELEMEDICINE [facility], [address] [place] [address], [id number] , [place] [phone] [facility] low back pain (chief complaint) Neck Pain (chief complaint) Chronic pain syndromeOther intervertebral disc degeneration, lumbar regionFibromyalgi aPostlaminectomy syndrome, not elsewhere classifiedLong term (current) use of opiate analgesicDepressi onTobacco use disorder, moderate Oct-0 6-202 0 Nyongesa Karen. [address] [place] [address] [address], [place], [place], [id number] , [place]. [phone] Referring Provider: Ferny Rider, [address] [place] [address], [address]. [phone] OFFICE VISIT, EST TELEMEDICINE [facility], [address] [place] [address], [id number] , [place] [phone] [facility] low back pain (chief complaint) Chronic pain syndromeOther intervertebral disc degeneration, lumbar regionFibromyalgi aPostlaminectomy syndrome, not elsewhere classifiedLong term (current) use of opiate analgesicDepressi onTobacco use disorder, moderate Sep-0 1-202 0 Nyongesa Karen. [address], [place], [place], [id number] , [place]. [phone] Referring Provider: Ferny Rider, [address] [place] [address], [id number]. [phone] OFFICE/OUTPAT IENT VISIT, [facility], [address] [place] [address], [id number] , [place] [phone] [facility] low back pain (chief complaint) Chronic pain syndromeOther intervertebral disc degeneration, lumbar regionFibromyalgi aPostlaminectomy syndrome, not elsewhere classifiedLong term (current) use of opiate analgesicDepressi onTobacco use disorder, moderate Jan- 0-202 0 Nyongesa Karen. [id number] [place] [address] [address], [place], [place], [id number] , [place]. [phone] Referring Provider: Ferny Rider, [address] [place] [address], [address]. [phone] OFFICE/OUTPAT IENT VISIT, [facility], [address] [place] [address], [id number] , [place] [phone] [facility] low back pain (chief complaint) Chronic pain syndromeOther intervertebral disc degeneration, lumbar regionFibromyalgi aPostlaminectomy syndrome, not elsewhere classifiedDepress ionTobacco use disorder, moderateLong term (current) use of opiate analgesic 0 Nyongesa Karen. [id number] [place] [address] [address], [place], [place], [id number] , [place]. tel:[phone] Referring Provider: Ferny Rider, [address] [place] [address], [address]. [phone] OFFICE/OUTPAT IENT VISIT, [facility], [address] [place] [address], [id number] , [place] [phone] [facility] low back pain (chief complaint) Chronic pain syndromeOther intervertebral disc degeneration, lumbar regionFibromyalgi aPostlaminectomy syndrome, not elsewhere classifiedEncount er for therapeutic drug level monitoringDepress ionTobacco use disorder, moderate 0 Jerrod Jones. [address], [facility] [place], [id number] , [place]. tel:[phone] Referring Provider: Viktor Weir, [facility] [address], [place], [address]. tel:[phone] Family History Family Member Type Diagnosis Age At Onset No Information Payers Payer name Insurance type Covered democrat ID Authoryisel chavez(s) GURUrachel [facility] [id number] Social History Type Description Quantity Date Captured Comments Alcohol Use Details Unknown Caffeine Use Details Unknown Tobacco Use Status Smoking Status No Information Sex Female Chief Complaint And Reason For Visit No Information Reason For Referral Reason For Referral No Information Plan Of Treatment Date Type Action Status Goal FIT. Due on due Goal ALT (SGPT). Due on due Goal HPV. Due on due Goal UDT. Due on due Goal Zoster vaccine ( 1st). Due on due Goal PHQ-9. Due on du e Goal FIT-DNA. Due on due Goal Tobacco Use. Due on 023 due Goal Update Social Hi story. Due on due Goal Weight. Due on d ue Goal COAL TRIMMER MACHINE OPERATOR Scanned. Due on 023 due Goal Order Annual PT. Due on due Goal Medication Recon ciliation. Due on due Goal Height. Due on d ue Goal Lipid panel. Due on due Goal Creatinine. Due on due Goal CAFETERIA MANAGER Paperwork. Due on due Goal Hepatitis C scre ening. Due on due Goal Unhealthy drug u se screening. Due on due Goal AST (SGOT). Due on due Goal OARS. Due on due Goal Review Allergy L ist. Due on due Goal CT-Colonography. Due on due Goal Creatinine. Due on due Goal Hepatitis C scre ening. Due on due Goal PHQ-9. Due on du e Goal FIT. Due on due Goal Zoster vaccine ( 1st). Due on due Goal AST (SGOT). Due on due Goal COAL TRIMMER MACHINE OPERATOR Scanned. Due on due Goal ALT (SGPT). Due on due Goal Medication Recon ciliation. Due on due Goal Unhealthy drug u se screening. Due on due Goal HPV. Due on due Goal FIT-DNA. Due on due Goal Height. Due on d ue Goal Update Social Hi story. Due on due Goal CT-Colonography. Due on due Goal CAFETERIA MANAGER Paperwork. Due on due Goal OARS. Due on due Goal Order Annual PT. Due on due Goal Weight. Due on d ue Goal UDT. Due on due Goal Review Allergy L ist. Due on due Goal Tobacco Use. Due on due Goal Lipid panel. Due on due Goal Creatinine. Due on due Goal CAFETERIA MANAGER Paperwork. Due on due Goal AST (SGOT). Due on due Goal UDT. Due on due Goal OARS. Due on due Goal Update Social Hi story. Due on due Goal Hepatitis C scre ening. Due on due Goal Zoster vaccine ( 1st). Due on due Goal PHQ-9. Due on du e Goal HPV. Due on due Goal ALT (SGPT). Due on due Goal Review Allergy L ist. Due on due Goal Lipid panel. Due on due Goal FIT-DNA. Due on due Goal Unhealthy drug u se screening. Due on due Goal Medication Recon ciliation. Due on due Goal Height. Due on d ue Goal COAL TRIMMER MACHINE OPERATOR Scanned. Due on due Goal Order Annual PT. Due on due Goal Tobacco Use. Due on due Goal FIT. Due on due Goal Weight. Due on d ue Goal CT-Colonography. Due on due Goal CAFETERIA MANAGER Paperwork. Due on due Goal COAL TRIMMER MACHINE OPERATOR Scanned. Due on due Goal UDT. Due on due Goal Tobacco Use. Due on due Goal ALT (SGPT). Due on due Goal AST (SGOT). Due on due Goal Order Annual PT. Due on due Goal OARS. Due on due Goal Creatinine. Due on due Goal Medication Recon ciliation. Due on due Goal Zoster vaccine ( 1st). Due on due Goal Lipid panel. Due on due Goal Hepatitis C scre ening. Due on due Goal Review Allergy L ist. Due on due Goal Update Social Hi story. Due on due Goal Unhealthy drug u se screening. Due on due Goal HPV. Due on due Goal Height. Due on d ue Goal FIT-DNA. Due on due Goal PHQ-9. Due on du e Goal CT-Colonography. Due on due Goal Weight. Due on d ue Goal FIT. Due on due Goal COAL TRIMMER MACHINE OPERATOR Scanned. Due on due Goal Order Annual PT. Due on due Goal ALT (SGPT). Due on due Goal OARS. Due on due Goal CAFETERIA MANAGER Paperwork. Due on due Goal UDT. Due on due Goal AST (SGOT). Due on due Goal Creatinine. Due on due Goal FIT. Due on due Goal HPV. Due on due Goal Tobacco Use. Due on due Goal FIT-DNA. Due on due Goal Update Social Hi story. Due on due Goal Weight. Due on d ue Goal Height. Due on d ue Goal Zoster vaccine ( 1st). Due on due Goal Review Allergy L ist. Due on due Goal Unhealthy drug u se screening. Due on due Goal Medication Recon ciliation. Due on due Goal PHQ-9. Due on du e Goal Hepatitis C scre ening. Due on due Goal Lipid panel. Due on due Goal CT-Colonography. Due on due Goal Creatinine. Due on due Goal UDT. Due on due Goal CAFETERIA MANAGER Paperwork. Due on due Goal OARS. Due on due Goal AST (SGOT). Due on due Goal Hepatitis C scre ening. Due on due Goal Unhealthy drug u se screening. Due on due Goal ALT (SGPT). Due on due Goal COAL TRIMMER MACHINE OPERATOR Scanned. Due on due Goal Order Annual PT. Due on due Goal FIT-DNA. Due on due Goal Zoster vaccine ( 1st). Due on due Goal FIT. Due on due Goal Lipid panel. Due on due Goal CT-Colonography. Due on due Goal Tobacco Use. Due on due Goal HPV. Due on due Goal PHQ-9. Due on du e Goal Medication Recon ciliation. Due on due Goal Review Allergy L ist. Due on due Goal Height. Due on d ue Goal Weight. Due on d ue Goal Update Social Hi story. Due on due Goal COAL TRIMMER MACHINE OPERATOR Scanned. Due on due Goal Weight. Due on d ue Goal Medication Recon ciliation. Due on due Goal Order Annual PT. Due on due Goal Creatinine. Due on due Goal ALT (SGPT). Due on due Goal AST (SGOT). Due on due Goal CAFETERIA MANAGER Paperwork. Due on due Goal OARS. Due on due Goal UDT. Due on due Goal FIT-DNA. Due on due Goal Tobacco Use. Due on due Goal Update Social Hi story. Due on due Goal PHQ-9. Due on du e Goal Height. Due on d ue Goal HPV. Due on due Goal Review Allergy L ist. Due on due Goal Lipid panel. Due on due Goal CT-Colonography. Due on due Goal Zoster vaccine ( 1st). Due on due Goal Unhealthy drug u se screening. Due on due Goal Hepatitis C scre ening. Due on due Goal FIT. Due on due Goal Weight. Due on d ue Goal PHQ-9. Due on du e Goal HPV. Due on due Goal CT-Colonography. Due on due Goal Hepatitis C scre ening. Due on due Goal CAFETERIA MANAGER Paperwork. Due on due Goal Lipid panel. Due on due Goal UDT. Due on due Goal FIT-DNA. Due on due Goal Unhealthy drug u se screening. Due on due Goal Medication Recon ciliation. Due on due Goal Height. Due on d ue Goal OARS. Due on due Goal ALT (SGPT). Due on due Goal Tobacco Use. Due on due Goal Order Annual PT. Due on due Goal AST (SGOT). Due on due Goal Update Social Hi story. Due on due Goal FIT. Due on due Goal COAL TRIMMER MACHINE OPERATOR Scanned. Due on due Goal Zoster vaccine ( 1st). Due on due Goal Review Allergy L ist. Due on due Goal Creatinine. Due on due Goal Update Social Hi story. Due on due Goal CAFETERIA MANAGER Paperwork. Due on due Goal Review Allergy L ist. Due on due Goal AST (SGOT). Due on due Goal Creatinine. Due on due Goal COAL TRIMMER MACHINE OPERATOR Scanned. Due on due Goal Height. Due on d ue Goal Medication Recon ciliation. Due on due Goal ALT (SGPT). Due on due Goal UDT. Due on due Goal PHQ-9. Due on du e Goal Tobacco Use. Due on due Goal OARS. Due on due Goal Order Annual PT. Due on due Goal Weight. Due on d ue Goal Medication Recon ciliation. Due on due Goal OARS. Due on due Goal CAFETERIA MANAGER Paperwork. Due on due Goal Order Annual PT. Due on due Goal Height. Due on d ue Goal ALT (SGPT). Due on due Goal COAL TRIMMER MACHINE OPERATOR Scanned. Due on due Goal Review Allergy L ist. Due on due Goal PHQ-9. Due on du e Goal Weight. Due on d ue Goal UDT. Due on due Goal Tobacco Use. Due on due Goal AST (SGOT). Due on due Goal Update Social Hi story. Due on due Goal Creatinine. Due on due Goal ALT (SGPT). Due on due Goal AST (SGOT). Due on due Goal OARS. Due on due Goal Tobacco Use. Due on due Goal COAL TRIMMER MACHINE OPERATOR Scanned. Due on due Goal Update Social Hi story. Due on due Goal Review Allergy L ist. Due on due Goal Medication Recon ciliation. Due on due Goal CAFETERIA MANAGER Paperwork. Due on due Goal Creatinine. Due on due Goal UDT. Due on due Goal Order Annual PT. Due on due Goal PHQ-9. Due on du e Goal Height. Due on d ue Goal Weight. Due on d ue Goal Medication Recon ciliation. Due on due Goal UDT. Due on due Goal AST (SGOT). Due on due Goal ALT (SGPT). Due on due Goal Tobacco Use. Due on due Goal Creatinine. Due on due Goal Order Annual PT. Due on due Goal Weight. Due on d ue Goal Height. Due on d ue Goal COAL TRIMMER MACHINE OPERATOR Scanned. Due on due Goal PHQ-9. Due on du e Goal Update Social Hi story. Due on due Goal OARS. Due on due Goal CAFETERIA MANAGER Paperwork. Due on due Goal Review Allergy L ist. Due on due Goal Height. Due on d ue Goal Medication Recon ciliation. Due on due Goal Creatinine. Due on due Goal UDT. Due on due Goal PHQ-9. Due on du e Goal Tobacco Use. Due on due Goal ALT (SGPT). Due on due Goal AST (SGOT). Due on due Goal Order Annual PT. Due on due Goal COAL TRIMMER MACHINE OPERATOR Scanned. Due on due Goal OARS. Due on due Goal CAFETERIA MANAGER Paperwork. Due on due Goal Update Social Hi story. Due on due Goal Review Allergy L ist. Due on due Goal Weight. Due on d ue Goal AST (SGOT). Due on due Goal Update Social Hi story. Due on due Goal Creatinine. Due on due Goal UDT. Due on due Goal OARS. Due on due Goal Height. Due on d ue Goal CAFETERIA MANAGER Paperwork. Due on due Goal COAL TRIMMER MACHINE OPERATOR Scanned. Due on due Goal Weight. Due on d ue Goal Medication Recon ciliation. Due on due Goal Tobacco Use. Due on due Goal ALT (SGPT). Due on due Goal Review Allergy L ist. Due on due Goal Order Annual PT. Due on due Goal PHQ-9. Due on du e Goal CAFETERIA MANAGER Paperwork. Due on due Goal Review Allergy L ist. Due on due Goal AST (SGOT). Due on due Goal Creatinine. Due on due Goal ALT (SGPT). Due on due Goal Update Social Hi story. Due on due Goal COAL TRIMMER MACHINE OPERATOR Scanned. Due on due Goal Height. Due on d ue Goal Tobacco Use. Due on due Goal UDT. Due on due Goal OARS. Due on due Goal PHQ-9. Due on du e Goal Order Annual PT. Due on due Goal Medication Recon ciliation. Due on due Goal Weight. Due on d ue Goal Order Annual PT. Due on due Goal Creatinine. Due on due Goal AST (SGOT). Due on due Goal Tobacco Use. Due on due Goal ALT (SGPT). Due on due Goal COAL TRIMMER MACHINE OPERATOR Scanned. Due on due Goal CAFETERIA MANAGER Paperwork. Due on due Goal Medication Recon ciliation. Due on due Goal Review Allergy L ist. Due on due Goal Weight. Due on d ue Goal OARS. Due on due Goal Update Social Hi story. Due on due Goal Height. Due on d ue Goal UDT. Due on due Goal PHQ-9. Due on du e Goal Creatinine. Due on due Goal CAFETERIA MANAGER Paperwork. Due on due Goal UDT. Due on due Goal Medication Recon ciliation. Due on due Goal COAL TRIMMER MACHINE OPERATOR Scanned. Due on due Goal Weight. Due on d ue Goal PHQ-9. Due on du e Goal AST (SGOT). Due on due Goal Order Annual PT. Due on due Goal Review Allergy L ist. Due on due Goal Height. Due on d ue Goal OARS. Due on due Goal ALT (SGPT). Due on due Goal Update Social Hi story. Due on due Goal Tobacco Use. Due on due Goal Update Social Hi story. Due on due Goal PHQ-9. Due on du e Goal ALT (SGPT). Due on due Goal Tobacco Use. Due on due Goal Medication Recon ciliation. Due on due Goal CAFETERIA MANAGER Paperwork. Due on due Goal AST (SGOT). Due on due Goal Creatinine. Due on due Goal Height. Due on d ue Goal Order Annual PT. Due on due Goal OARS. Due on due Goal UDT. Due on due Goal COAL TRIMMER MACHINE OPERATOR Scanned. Due on due Goal Weight. Due on d ue Goal Review Allergy L ist. Due on due Goal UDT. Due on due Goal ALT (SGPT). Due on due Goal OARS. Due on due Goal CAFETERIA MANAGER Paperwork. Due on due Goal AST (SGOT). Due on due Goal COAL TRIMMER MACHINE OPERATOR Scanned. Due on due Goal Creatinine. Due on due Goal Weight. Due on d ue Goal Order Annual PT. Due on due Goal PHQ-9. Due on du e Goal Tobacco Use. Due on due Goal Medication Recon ciliation. Due on due Goal Height. Due on d ue Goal Review Allergy L ist. Due on due Goal Update Social Hi story. Due on due Goal AST (SGOT). Due on due Goal Order Annual PT. Due on due Goal PHQ-9. Due on du e Goal Height. Due on d ue Goal Creatinine. Due on due Goal ALT (SGPT). Due on due Goal Medication Recon ciliation. Due on due Goal OARS. Due on due Goal Update Social Hi story. Due on due Goal COAL TRIMMER MACHINE OPERATOR Scanned. Due on due Goal CAFETERIA MANAGER Paperwork. Due on due Goal UDT. Due on due Goal Review Allergy L ist. Due on due Goal Tobacco Use. Due on due Goal Weight. Due on d ue Goal CAFETERIA MANAGER Paperwork. Due on due Goal UDT. Due on due Goal OARS. Due on due Goal COAL TRIMMER MACHINE OPERATOR Scanned. Due on due Goal Creatinine. Due on due Goal AST (SGOT). Due on due Goal Review Allergy L ist. Due on due Goal Order Annual PT. Due on due Goal Update Social Hi story. Due on due Goal Tobacco Use. Due on due Goal ALT (SGPT). Due on due Goal Height. Due on d ue Goal Weight. Due on d ue Goal Medication Recon ciliation. Due on due Goal PHQ-9. Due on du e Goal Weight. Due on d ue Goal Medication Recon ciliation. Due on due Goal Height. Due on d ue Goal PHQ-9. Due on du e Goal UDT. Due on due Goal Tobacco Use. Due on due Goal Creatinine. Due on due Goal Review Allergy L ist. Due on due Goal CAFETERIA MANAGER Paperwork. Due on due Goal Order Annual PT. Due on due Goal OARS. Due on due Goal ALT (SGPT). Due on due Goal AST (SGOT). Due on due Goal COAL TRIMMER MACHINE OPERATOR Scanned. Due on due Goal Update Social Hi story. Due on due Goal AST (SGOT). Due on due Goal CAFETERIA MANAGER Paperwork. Due on due Goal Tobacco Use. Due on due Goal Update Social Hi story. Due on due Goal Height. Due on d ue Goal Weight. Due on d ue Goal COAL TRIMMER MACHINE OPERATOR Scanned. Due on due Goal PHQ-9. Due on du e Goal UDT. Due on due Goal OARS. Due on due Goal Order Annual PT. Due on due Goal Creatinine. Due on due Goal Review Allergy L ist. Due on due Goal ALT (SGPT). Due on due Goal Medication Recon ciliation. Due on due Goal Creatinine. Due on due Goal Update Social Hi story. Due on due Goal CAFETERIA MANAGER Paperwork. Due on due Goal UDT. Due on due Goal ALT (SGPT). Due on due Goal Review Allergy L ist. Due on due Goal Tobacco Use. Due on due Goal COAL TRIMMER MACHINE OPERATOR Scanned. Due on due Goal PHQ-9. Due on du e Goal Medication Recon ciliation. Due on due Goal Height. Due on d ue Goal Weight. Due on d ue Goal Order Annual PT. Due on due Goal AST (SGOT). Due on due Goal OARS. Due on due Goal Tobacco cessation counseling completed Goal Tobacco cessation counseling completed Referral Ordered: Ava Driscoll -Physician Assistants & Advanced Practice Nursing Providers : Physician Watch Caser (related to Other intervertebral disc degeneration, lumbar region) ordered Referral Ordered: Ava Driscoll & Advanced Practice Nursing Providers : Physician Watch Caser (related to Postlaminectomy syndrome, not elsewhere classified) ordered Referral Ordered: Ava Driscoll -Physician Marshal & Advanced Practice Nursing Providers : Physician Watch Caser (related to Other intervertebral disc degeneration, lumbar region) ordered Referral Ordered: Ava DriscollPhysician Marshal & Advanced Practice Nursing Providers : Physician Watch Caser (related to Postlaminectomy syndrome, not elsewhere classified) ordered Referral Ordered: Ava Driscoll & Advanced Practice Nursing Providers : Physician Watch Caser (related to Radiculopathy, lumbar region) ordered Referral Referred To: Ava Driscoll [facility]
[address] [place], [address] [phone] Ordered: Referrals: Physician Assistants & Advanced Practice Nursing Providers : Physician . Ava Driscoll ordered Future Order: Radiology Order X- Ray Cervical Spine 3 Views Or Less (XCER3), Ordered on: Ordered Future Order: Radiology Order MR I Cervical Spine W/O Dye ([id number]), Ordered on: Ordered Future Order: Radiology Order MR I Lumbar Spine W/O Dye (MRILSWO), Ordered on: Ordered History Of Present Illness Encounter Date Complaint History Of Prese nt Illness low back pain Severity level i s 8. Duration: chronic. The problem is worsening. It occurs persistently. Symptoms are relieved by pain meds/drugs. Comments: Zach capone is a 56 y/o female who presents via [place] for virtual follow up and medication refill in the setting of chronic low back pain. Pain has been worse this month. Denies any new symptoms or changes. Continues to use the [employer] SCS with benefit.Neck pain with radiation into the shoulders has been the most bothersome. Denies any radiation down to the arms. She states she has increased her [place] 7.5-325mg to 3x/day due to the increased neck pain. Expressed interest in receiving repeat TPIs. Notes she is cleared by her doctor to hold Eliquis for 3 days after 09/16/22 for the [place]HA[place]. New anti-coagulation hold generated . Needs to schedule PT consult Reports current medication regimen provides 70% pain relief and allows for increased functionality. Continues to utilize [place] 7.5-325mg with significant benefit. Denies OIC or other side effects from current medication regimen. No other concerns today. Comments: Zach capone is a 56 y/o female who presents for follow up and medication refill in the setting of chronic low back pain. She was last seen on 05/08/22. Pain has been stable this month. Continues to use the [employer] SCS with benefit.Intermittent pain at the base of the neck have been the most bothersome. Denies any radiation down the arms. Notes she has been frequently dropping objects with both hands. She states she is not able to do PT at this time since her work prevents her from having free time.Reports current medication regimen provides 90% pain relief and allows for increased functionality. Continues to utilize [place] 7.5-325mg with significant benefit. Denies OIC or other side effects from current medication regimen. No other concerns today. low back pain Severity level i s 1. Duration: chronic. The problem is stable. It occurs intermittently. Location of pain is neck. The client describes the pain as an ache. Symptoms are aggravated by bending, lifting, sitting, twisting and prolonged positioning. Symptoms are relieved by lying down, pain meds/drugs and rest. Comments: Zach capone is a 56 y/o female who presents for follow up and medication refill in the setting of chronic low back pain. Pain has been improving this month. She states she recently had a blood clot in her leg. Notes she is now prescribed Eliquis and have to be on the medication for the rest of her life. Continues to use her Medtronic Lumbar SCS with significant benefit. Will plan to follow up with [employer] for reprogramming as needed. Reports current medication regimen provides 99+% pain relief and allows for increased functionality. Continues to utilize [place] 7.5-325mg with significant benefit. Denies OIC or other side effects from current medication regimen. No other concerns today. low back pain Severity level i s 4. Duration: chronic. The problem is improving. It occurs persistently. The client describes the pain as an ache, burning, sharp and tingling. Symptoms are aggravated by bending, lifting, running, sitting, standing, twisting, walking, housework, movement, stairs and prolonged positioning. Symptoms are relieved by pain meds/drugs and rest. low back pain Comments: Robb long presents to the clinic today for an SCS reprogramming to address low back pain surrounding SCS battery. Karon from [employer] met with her for the reprogramming. Patient also trialed TPIs around battery site to trial for pain relief. If TPIs are deemed unsuccessful, plan to move forward with SCS revision Comments: Zach capone is a 56 y/o female who presents for follow up and medication refill in the setting of chronic low back pain. Pain has been stable this month. She states her R buttocks are the most bothersome, especially at the battery site. Continues to utilize [employer] SCS with significant relief aside from the recent pain. Inquires about meeting with [employer] for possible reprogramming. Of note, patient was recently fired from her job at [employer]. She is currently looking for a new job and have various interviews lined up. Reports current medication regimen provides 85% relief and allows for increased functionality. She states she typically takes [place] 7.5-325mg 1-2x/day or sometimes not at all since the SCS provides significant benefit. Denies OIC or other side effects from current medication regimen. No other concerns today. low back pain Severity level i s 2. Duration: chronic. The problem is fluctuating. It occurs persistently. Location of pain is lower back and gluteal area. The client describes the pain as burning and sharp. Symptoms are aggravated by bending, lifting and housework. Symptoms are relieved by pain meds/drugs and rest. low back pain Severity level i s 1. Duration: chronic. The problem is stable. It occurs rarely. Location of pain is lower back, neck and bilateral hips. The client describes the pain as an ache.The client denies aggravating factors. Symptoms are relieved by changing positions. Comments: Zach capone presents for a virtual follow up and medication refill. Patient c/o chronic low back pain. Pain has been stable since last visit.S/p [employer] lumbar SCS implant on 07/24/2021. Continues to provide significant relief and reports 100% benefit. Inquires about a work note. Medication provides 100% relief and allows for increased functionality. Notes she has not had to use her medication as often or at all recently. Denies side effects from current medication regimen. No other concerns today. low back pain (comments) Krzysztof viera is here for virtual follow up, medication refill, and wound check following Lumbar SCS implant on 07/24/21. She is followed for lower back pain which has been improved since last OV. Notes that her chronic lower back pain has been completely resolved. Continues to detail some soreness at incision site. Of note, since implant on 07/24/21, patient has had severe diarrhea. She expresses interest in trialing imodium. 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 Reports current medication regimen provides 75% pain relief and allows for increased functionality. She notes she is taking #2-3tabs [place] 7.5-325mg every day. Denies side effects from current medication regimen. low back pain Severity level i s 1. Duration: chronic. The problem is improving. It occurs rarely. Location of pain is lower back and neck. Symptoms are aggravated by sitting. Symptoms are relieved by lying down, pain meds/drugs, rest and changing positions. low back pain (comments) Krzysztof viera is a 56 y/o female, meeting with us via LACEY for virtual follow up, medication refill, and for pre-implant education for Lumbar SCS, in the setting of chronic low back pain. Neck pain is also stable this month.She states she is beginning a program to get paid during the time she is off recovering from the SCS. She states she will also have questions that need to be answered on a [facility] letterhead. Reports current medication regimen provides 75% pain relief and allows for increased functionality. She notes she is taking #2-3tabs [place] 7.5-325mg every day. Denies side effects from current medication regimen. low back pain Severity level i s 8. Duration: chronic. The problem is worsening. It occurs persistently. Location of pain is lower back and neck.The patient describes the pain as an ache and sharp. Symptoms are aggravated by bending, lifting, housework and movement. Symptoms are relieved by lying down. low back pain Severity level i s 6. The problem is fluctuating. Location of pain is lower back and gluteal area. Pain is radiated to the left thigh and right thigh.The patient describes the pain as an ache and burning. Symptoms are aggravated by ascending stairs, bending and walking. Symptoms are relieved by ice, pain meds/drugs and rest. low back pain (comments) Krzysztof viera is a 55 y/o female, meeting with us via Adzilla for virtual follow up and medication refill, and for pretrial education for Lumbar SCS, in setting of chronic low back pain. Lower back pain is worse since last OV. 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 She states her neck pain is also worse this month.Reports current medication regimen provides 75% pain relief and allows for increased functionality. She notes she is taking #2-3tabs [place] 7.5-325mg every day. . Denies side effects from current medication regimen. low back pain (comments) Krzysztof viera is a 55 y/o female, meeting with us via Adzilla for virtual follow up and medication refill in setting of chronic low back pain. She states her low back pain is stable this month. She would like to trial SCS once she reaches full-time status at her new job at [employer] but she would like to start the PA process at this time. She has completed her MRI [facility] but missed her Psych VVShe states her neck pain is also worse this month.Reports current medication regimen provides 75% pain relief and allows for increased functionality. She notes she is taking #2-3tabs [place] 7.5-325mg every day. She reports she recently started Lunesta. Denies side effects from current medication regimen.No other concerns today. low back pain Severity level i s 3. Duration: chronic. The problem is stable. It occurs persistently. Location of pain is neck.The patient describes the pain as an ache. Symptoms are aggravated by ascending stairs, bending, descending stairs, lifting, running, twisting, walking, housework, movement and prolonged positioning. Symptoms are relieved by lying down, pain meds/drugs, rest and changing positions. low back pain (comments) Krzysztof viera is a 55 y/o female, meeting with us for follow up and medication refill in setting of chronic low back pain. She was last seen on 01/2021. She states her low back pain is worse this month. She would like to trial SCS once she reaches full-time status at her new job at [employer] but she would like to start the PA process at this time. She states her neck pain is also worse this month and endorses difficulty swallowing. She states her previous neck surgery was done in [place](?)Reports current medication regimen provides 75% pain relief and allows for increased functionality. She notes she is taking #2-3tabs [place] 7.5-325mg every day. Denies side effects from current medication regimen.No other concerns today. low back pain Duration: chroni c. The problem is stable. It occurs persistently. The patient describes the pain as an ache. Symptoms are aggravated by ascending stairs, bending, descending stairs, lifting and prolonged positioning. Symptoms are relieved by lying down and sitting. low back pain Severity level i s 4. Duration: chronic. The problem is stable. It occurs persistently. Location of pain is lower back and neck.The patient describes the pain as an ache and sharp. Symptoms are aggravated by bending, lifting, movement and housework. Symptoms are relieved by lying down. low back pain (comments) Krzysztof viera is meeting with us today via LACEY Virtual Visit for follow up and medication refill. Low back pain persists this month, but medication does help to some extent. She feels her pain is well managed at this time. Reports current medication regimen provides 70% pain relief and allows for increased functionality. Denies side effects from current medication regimen.No other concerns today. low back pain (comments) Krzysztof viera is meeting with us today via LACEY Virtual Visit for follow up and medication refill. Low back pain persists this month, but medication does help to some extent. She feels her pain is fairly well managed at this time. She got a new job at [employer].Reports current medication regimen provides 70% pain relief and allows for increased functionality. Denies side effects from current medication regimen.No other concerns today. low back pain Severity level i s 4. Duration: chronic. The problem is stable. It occurs persistently. Location of pain is lower back and neck.The patient describes the pain as an ache. Symptoms are aggravated by ascending stairs, bending, descending stairs, lifting, standing, movement and housework. Symptoms are relieved by lying down. low back pain Severity level i s 4. Duration: chronic. The problem is stable. It occurs persistently. Location of pain is lower back and neck.The patient describes the pain as an ache. Symptoms are aggravated by ascending stairs, bending, descending stairs, lifting, running, sitting, standing, twisting, walking, housework and prolonged positioning. Symptoms are relieved by lying down. low back pain (comments) Krzysztof viera is meeting with us today via Adzilla Virtual Visit for follow up and medication refill. Low back pain persists this month, but medication does help to some extent. She feels her pain is well managed at this time. She complains of bilateral flank pain with laying down, advised her see pcp.She is taking a trip to [place], returning 12/30/20.Reports current medication regimen provides 75% pain relief and allows for increased functionality. Denies side effects from current medication regimen. Patient presents with #1 [place] (hydrocodone/acet) 7.5-325m - surplus. Pharmacy only gave her 7 days supply instead of 30/day supply.No other concerns today. low back pain (comments) Krzysztof viera is here for a follow up and medications refill. Low back pain persists this month, but medication does help to some extent. She feels her pain is well managed at this time. Reports current medication regimen provides 75% pain relief and allows for increased functionality. Denies side effects from current medication regimen.She is taking a trip to [place] returning 12/30/20No other concerns today. low back pain Severity level i s 4. Duration: chronic. The problem is stable. It occurs persistently. Location of pain is lower back.The patient describes the pain as an ache. Symptoms are aggravated by ascending stairs, bending, descending stairs, lifting, twisting, housework and prolonged positioning. Symptoms are relieved by lying down, pain meds/drugs, rest and sitting. low back pain (comments) Krzysztof viera is meeting with us today via Adzilla Virtual Visit for following up and medication refill. Low back pain persists this month, but medication does help to some extent. She feels her pain is fairly well managed at this time. She is currently out of work after quitting her job due to physical limitations by back pain. She is currently on unemployment. She will search for a new job after her vacation to [place] to visit family. She will return on 12/15/20. She plans on applying to desk positions that do not require physical activity that aggravates her back pain.Reports current medication regimen provides 75% pain relief and allows for increased functionality. Denies side effects from current medication regimen.No other concerns today. low back pain Severity level i s 4. Duration: chronic. The problem is stable. It occurs persistently. Location of pain is lower back and neck.The patient describes the pain as an ache. Symptoms are aggravated by bending, lifting, sitting, twisting, movement and housework. Symptoms are relieved by pain meds/drugs. low back pain (comments) Krzysztof viera is here for a follow up to fill out [place] unemployment insurance paperwork. Low back pain persists this month, but medication does help to some extent. She feels her pain is moderately managed at this time. 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 She has applied for a sit down job and is waiting to hear back from the employer. She is also considering filing for disability since she is having such a hard time finding work.Reports current medication regimen provides 60% pain relief and allows for increased functionality. Denies side effects from current medication regimen.No other concerns today. low back pain Severity level i s mild-moderate. Duration: chronic. The problem is fluctuating. Location of pain is lower back. Pain is radiated to the buttocks.The patient describes the pain as an ache. Symptoms are aggravated by ascending stairs, bending, pushing and walking. Symptoms are relieved by heat, ice, pain meds/drugs and rest. low back pain Severity level i s 2. Duration: chronic. The problem is improving. It occurs intermittently. Location of pain is lower back and neck.The patient describes the pain as an ache. Symptoms are aggravated by housework. Symptoms are relieved by lying down. low back pain (comments) Krzysztof viera is meeting with us today via LACEY Virtual Visit for following up and medication refill. Low back and neck pain persists this month, but medication does help to some extent. She feels her pain is well managed at this time. Reports about 50% pain relief from Bilateral L5-S1 Transforaminal Epidural Steroid Injection on 08/09/20 so far. 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 Denies side effects from current medication regimen.No other concerns today. low back pain Severity level i s 3. Duration: chronic. The problem is worsening. It occurs persistently. Location of pain is lower back, legs and neck.The patient describes the pain as an ache. Symptoms are aggravated by movement. Symptoms are relieved by lying down. low back pain (comments) Krzysztof viera is meeting with us today via Adzilla Virtual Visit for following up and medication refill. Low back pain with radiation down the back of her legs is worse this month, but medication does help to some extent. She feels her pain is not well managed at this time. Standing and bending aggravates the pain. She is still not working due to the pain. Requests updated work restriction note.Reports current medication regimen provides 75% pain relief and allows for increased functionality. Denies side effects from current medication regimen.No other concerns today. low back pain Severity level i s 3. Duration: chronic. The problem is stable. It occurs persistently. Location of pain is lower back and neck.The patient describes the pain as an ache. Symptoms are aggravated by movement. Symptoms are relieved by lying down. low back pain (comments) Krzysztof viera is meeting with us today via LACEY Virtual Visit for following up and medication refill. Low back pain persists this month but tolerable with medication.Reports current medication regimen provides 70% pain relief and allows for increased functionality. Denies side effects from current medication regimen.No other concerns today. low back pain Severity level i s 3. Duration: chronic. The problem is worsening. It occurs persistently. Location of pain is lower back.The patient describes the pain as an ache. Symptoms are aggravated by movement. Symptoms are relieved by lying down. low back pain (comments) Krzysztof viera is meeting with us today via Wave[employer] Visit for following up and medication refill. Low back pain is worse. 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 She needs to complete a leave of absence form/disability form completed todayReports current medication regimen provides 70% pain relief and allows for increased functionality. Denies side effects from current medication regimen.No other concerns today. low back pain Severity level i s 3. Duration: chronic. The problem is stable. It occurs persistently. Location of pain is lower back.The patient describes the pain as an ache. Symptoms are aggravated by movement. Symptoms are relieved by lying down. low back pain (comments) Patient here via VV for medication refill and follow up visit. 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 She would like an excuse letter to not wipe tables or limit the number of tables she can wipes. Hydrocodone helps pain, 75% pain relief . Denies SE from medication including constipation. She stopped going to pool therapy, [facility] has not receive the order to continue PT.Reports new neck pain - s/p neck fusion No other concerns Neck Pain Duration: chroni c. The problem has not changed. Pertinent negatives include bladder incontinence. low back pain Severity level i s 2. Duration: chronic. The problem is stable. It occurs persistently. Location of pain is lower back and neck.The patient describes the pain as sharp. Symptoms are aggravated by standing and movement. Symptoms are relieved by rest and sitting. low back pain (comments) Krzysztof viera is meeting with us today via LACEY Virtual Visit for following up and medication refill. Low back pain persists this month, tolerable with medication. Reports great benefit with poop PT at [place] and requests new order.Reports current medication regimen provides 50% pain relief and allows for increased functionality. Denies side effects from current medication regimen.No other concerns today. low back pain Severity level i s 3. Duration: chronic. The problem is stable. It occurs persistently. Location of pain is lower back and neck.The patient describes the pain as sharp. Symptoms are aggravated by standing and movement. Symptoms are relieved by pain meds/drugs. low back pain (comments) Krzysztof viera is meeting with us today via LACEY Virtual Visit for following up and medication refill. Low back and neck pain persists this month, tolerable with medication. She has completed 2 sessions of pool PT and reports soreness after sessions. The pain wakes her up at night.Reports current medication regimen provides 70% pain relief and allows for increased functionality. Denies side effects from current medication regimen.No other concerns today. low back pain (comments) Krzysztof viera is here for a follow up and medications refill. Low back pain is worse. She is scheduled to start PT on the .Reports current medication regimen provides moderate pain relief and allows for increased functionality. Denies side effects from current medication regimen.No other concerns today. low back pain Severity level i s 8. Duration: chronic. The problem is worsening. It occurs persistently. The patient describes the pain as sharp. Symptoms are aggravated by standing, prolonged positioning and movement. Symptoms are relieved by sitting and changing positions. low back pain Severity level i s 8. Duration: chronic. The problem is improving. It occurs persistently. Location of pain is lower back.The patient describes the pain as sharp. Symptoms are aggravated by bending, lifting and standing. Symptoms are relieved by lying down, pain meds/drugs and rest. low back pain (comments) Krzysztof viera is here for a followup after initial consult. Low back pain with radiation into posterior aspect of her legs persists. Reports relief with medrol dose pack, but now pain has returned. She requests work restriction letter. 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 She requests restrictions include breaks to sit.Neck pain persists as well.No other concerns today. low back pain Severity level i s 6. Duration: chronic. It occurs persistently. Location of pain is lower back and neck.The patient describes the pain as stabbing. Symptoms are aggravated by bending, changing positions, lying/rest, standing and twisting. Symptoms are relieved by sitting. low back pain (comments) Krzysztof viera is here for an initial consult and presents with low back and neck pain. Her low back pain is the most bothersome. About 6 months ago she started having difficulty getting out of bed and now needs assistance. She however has had chronic pain for many many yearsHer spine doctor Dr. Weir suspects fibromyalgia - no surgical recommendations were offeredAlso reports neck pain with radiation into left shoulder(trapezius). S/p neck fusion - unknown level. Reports intermittent headaches with pain. Hydrococne seems to help.She has hesitation about exercises and PT- discussed today in detail reasons for PT . Pt open to trialing pool therapy Referred by Dr. Weir. Her is present and contributed to today's OV.Treatment Tried:Hydrocodone for the neck pain - somewhat helpful.Gabapentin 500mg/day - not helpful.PT for neck - not helpful.Pt goal: [facility] to take over pain management.Reports hx of depression with suicidal attempt and hospitalization when she was 19 years old. She follows up with Psychiatry at [facility]. Functional Status Date Functional Assessmen t No Information Instructions Date Instruction Additional Infor mation No Information Assessments Type Assessment Date No Information Patient Care Teams Name Effective Dates (start - stop) Status Members No Information
== END 2022-09-13 13:15 | disposition home or self-care (01) ==
PROVIDERS: Emergency Provider Emergency Medicine Emergency Medical Services; PCP Physician Assistant Medical
DX: M79.605 Pain in left leg (principal); M79.604 Pain in right leg
CPT/HCPCS: 93970; 99283; 99284

== ENCOUNTER 2022-10-09 12:37 | Emergency (ER) | payer MEDICAID, SELFPAY ==
[2022-10-09 13:02] VITALS: BP 102/75; PULSE 77; RESP 18; TEMP 36.1; O2SAT 97; BMI 26.6
--- NOTE | 2022-10-09 13:14 | ED.GENADULT ---
HPI - General Adult General Chief complaint: Dizziness/Vertigo Stated complaint: Dizzy last two days Time Seen by Provider: 10/09/22 13:09 History of Present Illness HPI narrative: Patient is a 57 white female who has a history of vertigo in the past, has been bothered for last couple of days with vertigo, she stayed off work a couple of days, she comes to ER today. She reports she needs a note for work. She reports when she gets up or moves quickly she feels a little lightheaded. No chest pain different from normal. No breathing problem, no headache headache, nausea , vomiting. Patient reports no no neurologic complaints. She presents to ER for assessment. Related Data Home Medications Medication Instructions Recorded Confirmed divalproex 500 mg tablet,extended 500 mg PO QDAY 05/14/22 05/14/22 release 24 hr gabapentin 300 mg capsule 600 mg PO QHS 05/14/22 05/14/22 hydrocodone 7.5 mg-acetaminophen tab PO QDAY PRN 05/14/22 05/14/22 325 mg tablet hydroxyzine HCl 25 mg tablet 25 mg PO QHS 05/14/22 05/14/22 lidocaine 5 % topical ointment 1 applic topical QHS PRN 05/14/22 05/14/22 lurasidone 80 mg tablet (Latuda) 80 mg PO QDAY 05/14/22 05/14/22 nitrofurantoin 100 mg PO DAILY 05/14/22 05/14/22 monohydrate/macrocrystals 100 mg capsule pantoprazole 40 mg tablet,delayed 40 mg PO QDAY 05/14/22 05/14/22 release sertraline 50 mg tablet 50 mg PO QDAY 05/14/22 05/14/22 tolterodine 2 mg capsule,extended 2 mg PO QDAY 05/14/22 05/14/22 release 24 hr topiramate 50 mg tablet 50 mg PO QDAY 05/14/22 05/14/22 trazodone 50 mg tablet 50 mg PO QHS PRN 05/14/22 05/14/22 Previous Rx's Medication Instructions Recorded apixaban 5 mg (74 tabs) tablets in 5 mg PO BID #74 ea 03/15/22 a dose pack (Eliquis DVT-PE Treat 30D Start) cyclobenzaprine 10 mg tablet 10 mg PO TID #15 tabs 09/13/22 lorazepam 0.5 mg tablet (Ativan) 0.5 mg PO TID PRN #7 tabs 10/09/22 Allergies Allergy/AdvReac Type Severity Reaction Status Date / Time sulfamethoxazole Allergy Verified 05/14/22 14:29 [From Bactrim] trimethoprim [From Bactrim] Allergy Verified 05/14/22 14:29 Review of Systems Status of ROS: Reports: 6 or more systems reviewed and unremarkable except as noted in History and below PFSH PFSH Medical History No significant past medical history Surgical History H/O neck surgery ?Z98.890 - Other specified postprocedural states (ICD-10) H/O tubal ligation ?Z98.51 - Tubal ligation status (ICD-10) H/O rotator cuff surgery ?Z98.890 - Other specified postprocedural states (ICD-10) H/O: hysterectomy ?Z90.710 - Acquired absence of both cervix and uterus (ICD-10) Social History Smoking Status: Current every day smoker What tobacco products do you use: cigarettes How often do you have a drink containing alcohol: monthly or less AUDIT-C Alcohol total score: 1 Non-prescribed substance use: denies use service: No Exam Narrative: Exam Narrative: Objective: Patient's vital signs are unremarkable O2 sats excellent 97% In general she is alert orient x3 Couple of beats of nystagmus to the right with lateral gaze. Neck is supple Neurologic is nonfocal upper lower extremities Heart regular rhythm heart without murmur Lungs are clear Good peripheral perfusion noted Const: Vital Signs, click to edit/add: Vital Signs - 24 hr 10/09/22 13:02 Temperature 96.9 F L Pulse Rate [Pulse Oximeter] 77 Respiratory Rate 18 Blood Pressure [Ri ght Upper Arm] 102/75 Pulse Oximetry 97 Oxygen Delivery Me thod Room Air Course Vital Signs Vital signs: Initial Vital Signs Temperature 96.9 F L 10/09/22 13:02 Temperature Source Temporal Artery Scan 10/09/22 13:02 Pulse Rate 77 10/09/22 13:02 Respiratory Rate 18 10/09/22 13:02 Blood Pressure 102/75 10/09/22 13:02 Blood Pressure Mean 84 10/09/22 13:02 Pulse Oximetry 97 10/09/22 13:02 Oxygen Delivery Method Room Air 10/09/22 13:02 Vital Signs Temperature 96.9 F L 10/09/22 13:02 Pulse Rate 77 10/09/22 13:02 Respiratory Rate 18 10/09/22 13:02 Blood Pressure 102/75 10/09/22 13:02 Pulse Oximetry 97 10/09/22 13:02 Oxygen Delivery Method Room Air 10/09/22 13:02 Temperature 96.9 F L 10/09/22 13:02 Pulse Rate 77 10/09/22 13:02 Respiratory Rate 18 10/09/22 13:02 Blood Pressure 102/75 10/09/22 13:02 Pulse Oximetry 97 10/09/22 13:02 Oxygen Delivery Method Room Air 10/09/22 13:02 Medical Decision Making MDM Narrative Medical decision making narrative: [age] year white female with a history of vertigo with similar vertiginous symptoms. She has had this for couple of days. No preceding illness. Patient has no chest pain no shortness of breath no neurologic complaints other than baseline. She has reports she gets occasional chest pain that is common for instead this for years. She has had no leg swelling or edema, has had a chart history of DVT but is not had any leg swelling or breathing difficulty. Patient this point has responded in the past she reports to medication and fluid. She also is in need of a note off work and I would have this her off until Friday. Ativan for home, will check electrolytes and give some IV fluid. As well as Ativan IV. Addendum: Patient's lab studies look reassuring she feels little bit better. Ativan for home, recheck with regular doctor in 2-3 days certainly sooner problems or concerns. Lab Data Labs: Lab Results 10/09/22 Range/Units 13:26 WBC 7.87 (4.50-11.00) K/uL RBC 4.45 (4.00-5.20) m/uL Hgb 13.7 (12.0-16.0) gm/dL Hct 41.5 (33.0-51.0) % MCV 93 (80-100) fL MCH 31 (26-34) pg MCHC 33 (32-36) gm/dL RDW Coeff of Jeremie 13.4 (11.5-15.5) % Plt Count 200 (140-440) K/uL Neut % (Auto) 54.6 (42.0-72.0) % Lymph % (Auto) 36.2 (20-44) % Graham % (Auto) 6.5 (0.0-11.0) % Eos % (Auto) 2.0 (0.0-7.0) % Baso % (Auto) 0.3 (0.0-3.0) % Neut # (Auto) 4.30 (1.7-7.0) K/uL Lymph # (Auto) 2.85 (0.90-2.90) K/uL Graham # (Auto) 0.50 (0.00-0.90) K/UL Eos # (Auto) 0.16 (0.00-0.50) K/uL Baso # (Auto) 0.02 (0.00-0.30) K/uL Sodium 139 (135-149) mmol/L Potassium 4.4 (3.6-5.1) mmol/L Chloride 106 (96-114) mmol/L Carbon Dioxide 28 (20-32) mmol/L BUN 21 (7-30) mg/dL Creatinine 1.1 (0.5-1.5) mg/dL Estimated Creat Clear 52.00 Estimated GFR 59 ml/min Glucose 108 (60-115) mg/dL Calcium 8.9 (8.4-10.6) mg/dL Discharge Plan Discharge Clinical Impression: Vertigo Patient Disposition: Home w/ Parent or Adult Condition: Improved Additional Instructions: Off work until Friday, fluids, rest, Ativan as needed for dizziness. Return if problems or concerns or worsening. Activity Level: Light activity Discharge Diet: Regular Prescriptions: New lorazepam [Ativan] 0.5 mg tablet 0.5 mg PO TID PRNQty: 7 0RF No Action hydrocodone-acetaminophen 7.5-325 mg tablet PO QDAY PRN trazodone 50 mg tablet 50 mg PO QHS PRN Patient Comments: TAKE ONE-HALF TO THREE TABLETS (25-150 MG) BY MOUTH AT BEDTIME IF NEEDED FOR SLEEP. sertraline 50 mg tablet 50 mg PO QDAY Patient Comments: TAKE ONE TABLET BY MOUTH DAILY gabapentin 300 mg capsule 600 mg PO QHS nitrofurantoin monohyd/m-cryst 100 mg capsule 100 mg PO DAILY topiramate 50 mg tablet 50 mg PO QDAY hydroxyzine HCl 25 mg tablet 25 mg PO QHS Patient Comments: TAKE 1 TO 2 TABLETS (25-50MG) BY MOUTH AT BEDTIME divalproex 500 mg tablet extended release 24 hr 500 mg PO QDAY pantoprazole 40 mg tablet,delayed release (DR/EC) 40 mg PO QDAY tolterodine 2 mg capsule,extended release 24hr 2 mg PO QDAY Patient Comments: TAKE 1 CAPSULE (2 MG) BY MOUTH ONCE DAILY. Latuda 80 mg tablet 80 mg PO QDAY Patient Comments: TAKE ONE TABLET (80MG) BY MOUTH ONCE DAILY WITH DINNER lidocaine 5 % ointment 1 applic topical QHS PRN Patient Comments: APPLY BY TOPICAL ROUTE 1 - 3 TIMES EVERY DAY TO AFFECTED AREA(S) NEEDED NEEDED FOR NERVE PAIN cyclobenzaprine 10 mg tablet 10 mg PO TID Qty: 15 0RF Eliquis DVT-PE Treat 30D Start 5 mg (74 tabs) tablets,dose pack 5 mg PO BID Qty: 74 0RF Follow Up/Referrals: Ava Chirinos PA-C [Primary Care Provider] - Stand Alone Forms: [facility] Info Instructions
[2022-10-09] MEDS: 0.9 % SODIUM CHLORIDE 1000 ml 1,000 ML 6000 ML IV (13:24)
[2022-10-09] MEDS: LORazepam 2 MG/ML inj 1 MG IVP (13:24)
[2022-10-09 13:42] LABS: Basophils Absolute Auto 0.02 K/uL (0.00-0.30); Basophils Percent Auto 0.3 % (0.0-3.0); Eosinophils Absolute Auto 0.16 K/uL (0.00-0.50); Hematocrit 41.5 % (33.0-51.0); Hemoglobin* 13.7 gm/dL (12.0-16.0); Immature Granulocytes Abs Auto 0.03 K/uL (0.00-0.30); Immature Granulocytes Pct Auto 0.4 %; Lymphocytes Absolute Auto 2.85 K/uL (0.90-2.90); Lymphocytes Percent Auto 36.2 % (20-44); Mean Corpuscular HGB Conc 33 gm/dL (32-36); Mean Corpuscular Hemoglobin 31 pg (26-34); Mean Corpuscular Volume 93 fL (80-100); Monocytes Percent Auto 6.5 % (0.0-11.0); Neutrophils Percent Auto 54.6 % (42.0-72.0); Platelet Count* 200 K/uL (140-440); RDW Coefficient of Variation % 13.4 % (11.5-15.5); Red Blood Count 4.45 m/uL (4.00-5.20); White Blood Count* 7.87 K/uL (4.50-11.00)
[2022-10-09 13:48] LABS: Slide Review Reflex No
[2022-10-09 13:59] LABS: Chloride* 106 mmol/L (96-114); Potassium* 4.4 mmol/L (3.6-5.1); Sodium* 139 mmol/L (135-149)
[2022-10-09 14:02] LABS: Carbon Dioxide* 28 mmol/L (20-32); Creatinine* 1.1 mg/dL (0.5-1.5); Estimated Glomerular Filt Rate 59 ml/min
[2022-10-09 14:03] LABS: Blood Urea Nitrogen* 21 mg/dL (7-30); Calcium* 8.9 mg/dL (8.4-10.6); Glucose* 108 mg/dL (60-115)
--- OUTSIDE RECORDS SUMMARY | 2022-10-09 14:08 | XMS_ITS | Continuity of Care Document ---
Author Name Unknown Organization [facility] Address [address] [place] [address] Care Team Providers Care Bat Carrier Name Role Phone Navneet Urena CRNA Unavailable Unavailable Procedures Procedure Date ANESTH, HEAD/NECK/PTRUNK Percutaneous Image guided neuromodulatio n or intra Advance Directives Directive Yes / No Effective Date File Name No Information Encounters Encounter Description Practice Location Reason(s) For Visit Diagnoses Date Provider Providers Copied on Encounter [facility], [address] [place], [place], [id number], [facility] No Information 2 Romel Toth. [address] [place], [place], [id number] , . [phone] Referring Provider: Wallace Rajput [facility] [address] [facility] [address], [place], [address]. tel:[phone] [facility], [address] [place], [place], [id number], [facility] No Information 2 Valente Rasmussen. [address], [place], [place], [id number] , . tel:[phone] Referring Provider: Wallace Rajput [facility] [address], [place], [address]. tel:[phone] Family History Family Member Type Diagnosis Age At Onset No Information Payers Payer name Insurance type Covered libertarian ID Guera chavez(s) [facility] [id number] Social History Type Description Quantity Date Captured [...]
--- OUTSIDE RECORDS SUMMARY | 2022-10-09 14:08 | XMS_ITS | Continuity of Care Document ---
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 [address] [place] [address], [id number], . tel:[phone] Referring Provider: Wallace Rajput [address] [facility] [[email or web address] [address], [place], [address]. tel:[phone] [facility], [address] [place] [address], [id number], tel:[phone] [facility] No Information 2 [facility]. [address] [place] [address], [id number], . tel:[phone] Referring Provider: Wallace Rajput [id number] [address] [facility] [[email or web address] [address], [place], [address]. tel:[phone] [facility], [address] [place] [address], [id number], tel:[phone] [facility] No Information [facility]. [address] [place] [address], [id number], . tel:[phone] Referring Provider: Wallace Rajput iZ[employer] [address] [facility] [[email or web address] [address], [place], [address]. tel:[phone] Family History Family Member Type Diagnosis Age At Onset No Information Payers Payer name Insurance type Covered libertarian ID Guera chavez(s) [facility] [id number] Social History Type Description Quantity Date Captured [...]
--- OUTSIDE RECORDS SUMMARY | 2022-10-09 14:09 | XMS_ITS | Continuity of Care Document ---
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 Restaurant Hospitality Manager Name Role Phone Jerrod DEEPALI Karen Unavailable Unavailable Allergies, Adverse Reactions, Alerts Substance Reaction Status Criticality trimethoprim HivesHivesHives Active No Informati on sulfamethoxazole HivesHivesHives Active No Infor mation Medications Medication Instructions Dosage Effective Dates (start - stop) Status Comments gabapentin 300 mg capsule take 1 capsule by oral route at HS - Active oxycodone 5 mg tablet take [...] hours with food 100 MG - Active Latuda 40 mg tablet take 1 tablet by ora l route every day with food (at least 350 calories) 40 MG - Active Zoloft 100 mg tablet take 2 tablet by or al route every day 200 MG - Active Procedures Procedure Date INJ TRIGGER POINT, 1/2 MUSCL Kenalog Triamcinolone acetonide inj Foll-up eval q3mo opiod tx OFFICE VISIT, EST TELEMEDICINE Drug test def 8-14 classes Drug Urine Toxology With Chromatography Foll-up eval q3mo opiod tx OFFICE/OUTPATIENT VISIT, EST Foll-up eval q3mo opiod tx OFFICE VISIT, EST TELEMEDICINE INJ TRIGGER POINT, 06/10 MUSCL Kenalog Triamcinolone acetonide inj OFFICE/OUTPATIENT VISIT, EST No Charge For Visit Per Prov PT-FOCUSED HLTH RISK ASSMT Foll-up eval q3mo opiod tx OFFICE/OUTPATIENT VISIT, EST Drug test def 1-7 classes Drug Urine Toxology With Chromatography Foll-up eval q3mo opiod tx OFFICE VISIT, [...] Diagnoses Date Provider Providers Copied on Encounter [facility], [address] [place] [address], [id number] , [place] tel:[phone] [facility] No Information 3 Jerrod Jones. [address] [facility] [address] [address], [place], [id number] , [place]. tel:[phone] [facility], [address] [place] [address], [id number] , [place] tel:[phone] [facility] Myalgia, other site 3 Dorene Trejo. [address] [facility] [address], [place], [id number] , [place]. tel:[phone] Referring Provider: Ferny Rider, [address] [place] [address], [address]. tel:[phone] OFFICE VISIT, [facility] TELEMEDICINE [facility], [address] [place] [address], [id number] , [place] tel:[phone] [facility] low back pain (chief complaint) DepressionChronic pain syndromeRadiculop athy, cervical regionRadiculopat hy, lumbar regionFibromyalgi aPostlaminectomy syndrome, not elsewhere classifiedLong term (current) use of opiate analgesic 3 Jerrod Jones. [address] [facility] [address], [place], [id number] , [place]. tel:[phone] [facility], [address] [place] [address], [id number] , [place] tel: [phone] [facility] No Information 3 [facility] Karen. [address] [place] [address] [address], [place], [place], [id number] , [place]. tel: [phone] OFFICE/OUTPAT IENT VISIT, EST [facility], [address] [place] [address], [id number] , [place] tel: [phone] [facility] low back pain (chief complaint) DepressionChronic pain syndromeRadiculop athy, lumbar regionFibromyalgi aPostlaminectomy syndrome, not elsewhere classifiedLong term (current) use of opiate analgesicRadiculo henny, cervical region 3 [facility] Karen. [address] [place] [address] [address], [place], [place], [id number] , [place]. tel: [phone] Referring Provider: Ferny Rider, [address] [place] [address], [address]. [phone] OFFICE VISIT, EST TELEMEDICINE [facility], [address] [place] [address], [id number] , [place] tel: [phone] [facility] low back pain (chief complaint) DepressionChronic pain syndromeOther intervertebral disc degeneration, lumbar regionRadiculopat hy, lumbar regionFibromyalgi aPostlaminectomy syndrome, not elsewhere classifiedLong term (current) use of opiate analgesic 2 [facility] Karen. [address] [place] [address] [address], [place], [place], [id number] , [place]. tel:[phone] Referring Provider: Ferny Rider, [address] [place] [address], [address]. [phone] OFFICE/OUTPAT IENT VISIT, EST [facility], [address] [place] [address], [id number] , [place] tel: [phone] [facility] low back pain (chief complaint) Radiculopathy, lumbar regionMyalgia, other site Sep- 2 Dorene Trejo. [address] [facility] [address], [place], [id number] , [place]. tel:[phone] [facility], [address] [place] [address], [id number] , [place] tel: [phone] [facility] [place] No Information Sep- 2 Arpan Isaacs. [address] [place], [place], [id number] , [place]. tel:[phone] Referring Provider: Ferny Rider, [address] [place] [address], [address]. [phone] OFFICE/OUTPAT IENT VISIT, [facility], [address] [place] [address], [id number] , [place] tel:[phone] [facility] low back pain (chief complaint) DepressionChronic pain syndromeOther intervertebral disc degeneration, lumbar regionRadiculopat hy, lumbar regionFibromyalgi aPostlaminectomy syndrome, not elsewhere classifiedLong term (current) use of opiate analgesicEncounte r for screening for other disorderEncounter for therapeutic drug level monitoring Feb- 2 Lissagianni Jones. [address] [facility] [address], [place], [id number] , [place]. tel:[phone] Referring Provider: Ferny Rider, [address] [place] [address], [address]. [phone] OFFICE VISIT, EST TELEMEDICINE [facility], [address] [place] [address], [id number] , [place] tel:[phone] [facility] low back pain (chief complaint) DepressionChronic pain syndromeOther intervertebral disc degeneration, lumbar regionRadiculopat hy, lumbar regionFibromyalgi aPostlaminectomy syndrome, not elsewhere classifiedLong term (current) use of opiate analgesic Apr- 2 Jerrod Jones. [address] [facility] [address], [place], [id number] , [place]. tel:[phone] Referring Provider: Ferny Rider, [address] [place] [address], [address]. tel:[phone] OFFICE VISIT, EST TELEMEDICINE [facility], [address] [place] [address], [id number] , [place] tel:[phone] [facility] low back pain (chief complaint) Radiculopathy, lumbar regionOther intervertebral disc degeneration, lumbar regionLong term (current) use of opiate analgesicDepressi onChronic pain syndromeFibromyal giaPostlaminectom y syndrome, not elsewhere classified 2 Dorene Trejo. [address] [facility] [address], [place], [place], [id number] , [place]. [phone] [facility], [address] [place] [address], [id number] , [place] tel:[phone] [facility] Radiculopathy, lumbar region 2 Jerrod Jones. [address] [facility] [address], [place], [place], [id number] , [place]. [phone] Referring Provider: Ferny Rider, [address] [place] [address], [address]. [phone] [facility], [address] [place] [address], [id number] , [place] [phone] [facility] Radiculopathy, lumbar region 2 Regulo Gonsalez. [facility], [address] [facility] [address], [place], [address], [place]. [phone] Referring Provider: Ferny Rider, [address] [place] [address], [address]. tel:[phone] OFFICE VISIT, EST TELEMEDICINE [facility], [address] [place] [address], [id number] , [place] [phone] [facility] low back pain (chief complaint) Radiculopathy, lumbar regionOther intervertebral disc degeneration, lumbar regionLong term (current) use of opiate analgesicDepressi onChronic pain syndromeFibromyal giaPostlaminectom y syndrome, not elsewhere classifiedTobacco use disorder, moderate 2 Jerrod Jones. [address] [facility] [address], [place], [place], [id number] , [place]. [phone] Referring Provider: Mu [place] [address], [place], [address]. tel:[phone] [facility], [address] [place] [address], [id number] , [place] tel:[phone] [facility] Other intervertebral disc degeneration, lumbar regionRadiculopat hy, lumbar region 2 Jerrod Jones. [address] [facility] [address], [place], [place], [id number] , [place]. [phone] Referring Provider: Ferny Rider, [address] [place] [address], [address]. [phone] [facility], [address] [place] [address], [id number] , [place] [phone] [facility] No Information 2 Jerrod Jones. [address] [facility] [address], [place], [place], [id number] , [place]. [phone] Referring Provider: Ferny Rider, [address] [place] [address], [address]. [phone] [facility], [address] [place] [address], [id number] , [place] [phone] [facility] Radiculopathy, lumbar region 2 Regulo Gonsalez. [facility], [address], [place], [address], [place]. [phone] Referring Provider: Ferny Rider, [address] [place] [address], [address]. [phone] OFFICE VISIT, EST TELEMEDICINE [facility], [address] [place] [address], [id number] , [place] tel: [phone] [facility] low back pain (chief complaint) manager long term care (current) use of opiate analgesicDepressi onChronic pain syndromeOther intervertebral disc degeneration, lumbar regionFibromyalgi aPostlaminectomy syndrome, not elsewhere classifiedRadicul opathy, lumbar regionTobacco use disorder, moderate 2 Nyongesa Karen. [address] [facility] [address], [place], [id number] , [place]. tel: [phone] Referring Provider: Ferny Rider, [address] [place] [address], [address]. [phone] [facility], [address] [place] [address], [id number] , [place] tel: [phone] [facility] No Information 1 Nyongesa Karen. [address] [facility] [address], [place], [id number] , [place]. tel: [phone] Psych Dx Eval [facility], [address] [place] [address], [id number] , [place] tel: [phone] [facility] Pain disorder with related psychological factorsBipolar disorder 1 Yvonne Beltran. [address] [place], [place], [id number] , [place]. tel: [phone] OFFICE VISIT, EST TELEMEDICINE [facility], [address] [place] [address], [id number] , [place] tel: [phone] [facility] low back pain (chief complaint) manager long term care (current) use of opiate analgesicDepressi onChronic pain syndromeOther intervertebral disc degeneration, lumbar regionFibromyalgi aPostlaminectomy syndrome, not elsewhere classifiedRadicul opathy, lumbar regionTobacco use disorder, moderate 1 Nyongesa Karen. [address] [facility] [address], [place], [id number] , [place]. tel: [phone] [facility], [address] [place] [address] [place], [id number] , [place] tel: [phone] [facility] No Information 1 Arpan Isaacs. [address] [facility] [place], [place], [id number] , [place]. tel: [phone] OFFICE/OUTPAT IENT VISIT, EST [facility], [address] [place] [address] [place], [id number] , [place] tel: [phone] [facility] low back pain (chief complaint) manager long term care (current) use of opiate analgesicDepressi onChronic pain syndromeOther intervertebral disc degeneration, lumbar regionFibromyalgi aPostlaminectomy syndrome, not elsewhere classifiedEncount er for therapeutic drug level monitoringRadicul opathy, lumbar region 1 Rashmi Karen. [address], [place], [place], [id number] , [place]. tel: [phone] Referring Provider: Ferny Rider, [address] [place] [address], [address]. tel:[phone] [facility], [address] [place] [address], [id number] , [place] tel: [phone] [facility] No Information 1 Rashmi Karen. [address] [facility] [address], [place], [place], [id number] , [place]. tel: [phone] OFFICE VISIT, EST TELEMEDICINE [facility], [address] [place] [address] [place], [id number] , [place] tel: [phone] [facility] low back pain (chief complaint) alf (current) use of opiate analgesicDepressi onChronic pain syndromeOther intervertebral disc degeneration, lumbar regionFibromyalgi aPostlaminectomy syndrome, not elsewhere classified 1 Jerrod Jones. [address] [address] [address], [place], [place], [id number] , [place]. tel: [phone] Referring Provider: Ferny Rider, [place], [address]. tel:[phone] OFFICE VISIT, EST TELEMEDICINE [facility], [address] [place] [address], [id number] , [place] tel:[phone] [facility] low back pain (chief complaint) Chronic pain syndromeOther intervertebral disc degeneration, lumbar regionFibromyalgi aPostlaminectomy syndrome, not elsewhere classifiedLong term (current) use of opiate analgesicDepressi on 1 Nyongesa Karen. [address] [facility] [address], [place], [place], [id number] , [place]. tel:[phone] Referring Provider: Ferny Rider, [address] [place] [address], [address]. [phone] OFFICE VISIT, EST TELEMEDICINE [facility], [address] [place] [address], [id number] , [place] tel:[phone] [facility] low back pain (chief complaint) Chronic pain syndromeOther intervertebral disc degeneration, lumbar regionFibromyalgi aPostlaminectomy syndrome, not elsewhere classifiedLong term (current) use of opiate analgesicDepressi onTobacco use disorder, moderate 1 Nyongesa Karen. [address] [facility] [address], [place], [place], [id number] , [place]. tel:[phone] Referring Provider: Ferny Rider, [address] [place] [address], [address]. tel:[phone] [facility], [address] [place] [address], [id number] , [place] tel:[phone] [facility] No Information 1 Nyongesa Karen. [address] [facility] [address], [place], [id number] , [place]. tel:[phone] OFFICE/OUTPAT IENT VISIT, [facility], [address] [place] [address], [id number] , [place] tel:[phone] [facility] low back pain (chief complaint) Chronic pain syndromeOther intervertebral disc degeneration, lumbar regionFibromyalgi aPostlaminectomy syndrome, not elsewhere classifiedLong term (current) use of opiate analgesicDepressi onTobacco use disorder, moderateRadiculop athy, lumbar regionEncounter for therapeutic drug level monitoring 1 Nygianni Karen. [address] [facility] [address], [place], [place], [id number] , [place]. tel: [phone] Referring Provider: Ferny Rider, [address] [place] [address], [address]. tel:[phone] OFFICE VISIT, EST TELEMEDICINE [facility], [address] [place] [address], [id number] , [place] tel: [phone] [facility] low back pain (chief complaint) Chronic pain syndromeOther intervertebral disc degeneration, lumbar regionFibromyalgi aPostlaminectomy syndrome, not elsewhere classifiedLong term (current) use of opiate analgesicDepressi onTobacco use disorder, moderateRadiculop athy, lumbar region 1 Nyongesa Karen. [address] [facility] [address], [place], [place], [id number] , [place]. tel: [phone] Referring Provider: Ferny Rider, [address] [place] [address], [address]. tel:[phone] OFFICE/OUTPAT IENT VISIT, [facility], [address] [place] [address], [id number] , [place] tel: [phone] [facility] low back pain (chief complaint) Chronic pain syndromeOther intervertebral disc degeneration, lumbar regionFibromyalgi aPostlaminectomy syndrome, not elsewhere classifiedLong term (current) use of opiate analgesicDepressi onTobacco use disorder, moderateRadiculop athy, lumbar region Aug- 1 Nyongesa Karen. [address] [facility] [address], [place], [place], [id number] , [place]. tel:[phone] Referring Provider: Ferny Rider, [place], [address]. tel:[phone] OFFICE VISIT, EST TELEMEDICINE [facility], [address] [place] [address], [id number] , [place] [phone] [facility] low back pain (chief complaint) Chronic pain syndromeOther intervertebral disc degeneration, lumbar regionFibromyalgi aPostlaminectomy syndrome, not elsewhere classifiedLong term (current) use of opiate analgesicDepressi onTobacco use disorder, moderateRadiculop athy, lumbar region Aug- 6- 1 Jerrod Jones. [address] [facility] [address], [place], [place], [id number] , [place]. tel:[phone] Referring Provider: Ferny Rider, [address] [place] [address], [address]. tel:[phone] [facility], [address] [place] [address], [id number] , [place] tel:[phone] [facility] No Information 0 1 Lissagianni Jones. [address] [facility] [address], [place], [place], [id number] , [place]. [phone] Referring Provider: Ferny Rider, [address] [place] [address], [address]. tel:[phone] [facility], [address] [place] [address], [id number] , [place] [phone] [facility] Radiculopathy, lumbar region Aug-0 3- 1 Raj[facility], [address] [facility] [address], [place], [address], [place]. [phone] Referring Provider: Ferny Rider, [address] [place] [address], [address]. [phone] OFFICE VISIT, EST TELEMEDICINE [facility], [address] [place] [address], [id number] , [place] [phone] [facility] low back pain (chief complaint) Chronic pain syndromeOther intervertebral disc degeneration, lumbar regionFibromyalgi aPostlaminectomy syndrome, not elsewhere classifiedLong term (current) use of opiate analgesicDepressi onTobacco use disorder, moderateRadiculop athy, lumbar region 1 Jerrod Jones. [address] [facility] [address], [place], [place], [id number] , [place]. tel:[phone] Referring Provider: Ferny Rider, [address] [place] [address], [address]. [phone] [facility], [address] [place] [address], [id number] , [place] tel:[phone] [facility] [place] No Information 1 Jerrod Jones. [address] [facility] [address], [place], [place], [id number] , [place]. tel:[phone] Referring Provider: Ferny Rider, [address] [place] [address], [address]. [phone] OFFICE VISIT, EST TELEMEDICINE [facility], [address] [place] [address], [id number] , [place] tel:[phone] [facility] low back pain (chief complaint) Chronic pain syndromeOther intervertebral disc degeneration, lumbar regionFibromyalgi aPostlaminectomy syndrome, not elsewhere classifiedLong term (current) use of opiate analgesicDepressi onTobacco use disorder, moderateEncounter for therapeutic drug level monitoring 1 Jerrod Jones. [address] [facility] [address], [place], [place], [id number] , [place]. tel:[phone] Referring Provider: Ferny Rider, [address] [place] [address], [address]. [phone] OFFICE VISIT, EST TELEMEDICINE [facility], [address] [place] [address], [id number] , [place] tel:[phone] [facility] low back pain (chief complaint) Chronic pain syndromeOther intervertebral disc degeneration, lumbar regionFibromyalgi aPostlaminectomy syndrome, not elsewhere classifiedLong term (current) use of opiate analgesicDepressi onTobacco use disorder, moderate May- 0 Nyongesa Karen. [address] [facility] [address], [place], [place], [id number] , [place]. tel:[phone] Referring Provider: Ferny Rider, [address] [place] [address], [address]. tel:[phone] OFFICE VISIT, EST TELEMEDICINE [facility], [address] [place] [address], [id number] , [place] [phone] [facility] low back pain (chief complaint) Chronic pain syndromeOther intervertebral disc degeneration, lumbar regionFibromyalgi aPostlaminectomy syndrome, not elsewhere classifiedLong term (current) use of opiate analgesicDepressi onTobacco use disorder, moderate Nov-1 0-202 0 Nyongesa Karen. [address] [facility] [address], [place], [place], [id number] , [place]. [phone] Referring Provider: Ferny Rider, [address] [place] [address], [address]. [phone] OFFICE VISIT, EST TELEMEDICINE [facility], [address] [place] [address], [id number] , [place] [phone] [facility] low back pain (chief complaint) Neck Pain (chief complaint) Chronic pain syndromeOther intervertebral disc degeneration, lumbar regionFibromyalgi aPostlaminectomy syndrome, not elsewhere classifiedLong term (current) use of opiate analgesicDepressi onTobacco use disorder, moderate Oct-0 6-202 0 Nyongesa Karen. [address] [facility] [address], [place], [place], [id number] , [place]. [phone] Referring Provider: Ferny Rider, [address] [place] [address], [address]. tel:[phone] OFFICE VISIT, EST TELEMEDICINE [facility], [address] [place] [address], [id number] , [place] [phone] [facility] low back pain (chief complaint) Chronic pain syndromeOther intervertebral disc degeneration, lumbar regionFibromyalgi aPostlaminectomy syndrome, not elsewhere classifiedLong term (current) use of opiate analgesicDepressi onTobacco use disorder, moderate Sep-0 1-202 0 Nyongesa Karen. [address] [facility] [address], [place], [id number] , [place]. tel: [phone] Referring Provider: Ferny Rider, [address] [place] [address], [address]. tel:[phone] OFFICE/OUTPAT IENT VISIT, [facility], [address] [place] [address], [id number] , [place] tel: [phone] [facility] low back pain (chief complaint) Chronic pain syndromeOther intervertebral disc degeneration, lumbar regionFibromyalgi aPostlaminectomy syndrome, not elsewhere classifiedLong term (current) use of opiate analgesicDepressi onTobacco use disorder, moderate Aug-1 0-202 0 Nyongesa Karen. [address] [facility] [address], [place], [place], [id number] , [place]. tel: [phone] Referring Provider: Ferny Rider, [address] [place] [address], [id number]. tel:[phone] OFFICE/OUTPAT IENT VISIT, [facility], [address] [place] [address], [id number] , [place] tel: [phone] [facility] low back pain (chief complaint) Chronic pain syndromeOther intervertebral disc degeneration, lumbar regionFibromyalgi aPostlaminectomy syndrome, not elsewhere classifiedDepress ionTobacco use disorder, moderateLong term (current) use of opiate analgesic Navin-2 8- 0 Nyongesa Karen. [address] [facility] [address], [place], [id number] , [place]. tel: [phone] Referring Provider: Ferny Rider, [address] [place] [address], [id number]. tel:[phone] OFFICE/OUTPAT IENT VISIT, [facility], [address] [place] [address], [id number] , [place] tel: [phone] [facility] [place] low back pain (chief complaint) Chronic pain syndromeOther intervertebral disc degeneration, lumbar regionFibromyalgi aPostlaminectomy syndrome, not elsewhere classifiedEncount er for therapeutic drug level monitoringDepress ionTobacco use disorder, moderate 0 Jerrod Jones. [address] [facility] [address], [facility] [place], [id number] , [place]. tel: [phone] Referring Provider: Viktor Weir, [facility] [address], [place], [address]. tel:[phone] Family History Family Member Type Diagnosis Age At Onset No Information Payers Payer name Insurance type Covered libertarian ID Authoryisel chavez(s) Regina CALDERA [id number] Social History Type Description Quantity Date Captured Comments Sex Female Smoking Status No Information Chief Complaint And Reason For Visit No Information Reason For Referral Reason For Referral No Information Plan Of Treatment Date Type Action Status Goal SHADE HANGER Paperwork. Due on due Goal Medication Recon ciliation. Due on due Goal PHQ-9. Due on du e Goal AST (SGOT). Due on due Goal Height. Due on d ue Goal Zoster vaccine ( 1st). Due on due Goal Weight. Due on d ue Goal Tobacco Use. Due on 023 due Goal HPV. Due on due Goal CT-Colonography. Due on due Goal Unhealthy drug u se screening. Due on due Goal Hepatitis C scre ening. Due on due Goal Update Social Hi story. Due on due Goal Creatinine. Due on due Goal ALT (SGPT). Due on due Goal COUNTER WEIGHER Scanned. Due on due Goal UDT. Due on due Goal Order Annual PT. Due on due Goal OARS. Due on due Goal FIT-DNA. Due on due Goal FIT. Due on due Goal Lipid panel. Due on due Goal Review Allergy L ist. Due on due Goal ALT (SGPT). Due on due Goal Hepatitis C scre ening. Due on due Goal CT-Colonography. Due on due Goal Medication Recon ciliation. Due on due Goal Height. Due on d ue Goal AST (SGOT). Due on due Goal Update Social Hi story. Due on due Goal Weight. Due on d ue Goal FIT. Due on due Goal Zoster vaccine ( 1st). Due on due Goal HPV. Due on due Goal PHQ-9. Due on du e Goal FIT-DNA. Due on due Goal Unhealthy drug u se screening. Due on due Goal Tobacco Use. Due on due Goal Review Allergy L ist. Due on due Goal SHADE HANGER Paperwork. Due on due Goal Creatinine. Due on due Goal COUNTER WEIGHER Scanned. Due on due Goal UDT. Due on due Goal Order Annual PT. Due on due Goal OARS. Due on due Goal Lipid panel. Due on due Goal OARS. Due on due Goal SHADE HANGER Paperwork. Due on due Goal UDT. Due on due Goal AST (SGOT). Due on due Goal Creatinine. Due on due Goal Unhealthy drug u se screening. Due on due Goal Medication Recon ciliation. Due on due Goal PHQ-9. Due on du e Goal Hepatitis C scre ening. Due on due Goal FIT-DNA. Due on due Goal Update Social Hi story. Due on due Goal Weight. Due on d ue Goal COUNTER WEIGHER Scanned. Due on due Goal Order Annual PT. Due on due Goal ALT (SGPT). Due on due Goal Tobacco Use. Due on due Goal HPV. Due on due Goal FIT. Due on due Goal Review Allergy L ist. Due on due Goal Height. Due on d ue Goal Zoster vaccine ( 1st). Due on due Goal Lipid panel. Due on due Goal CT-Colonography. Due on due Goal OARS. Due on due Goal SHADE HANGER Paperwork. Due on due Goal UDT. Due on due Goal AST (SGOT). Due on due Goal Creatinine. Due on due Goal COUNTER WEIGHER Scanned. Due on due Goal Order Annual [...] due Goal CT-Colonography. Due on due Goal HPV. Due on due Goal FIT. Due on due Goal Review Allergy L ist. Due on due Goal Unhealthy drug u se screening. Due on due Goal Medication Recon ciliation. Due on due Goal PHQ-9. Due on du e Goal Hepatitis C scre ening. Due on due Goal ALT (SGPT). Due on due Goal CT-Colonography. Due on due Goal Tobacco Use. Due on due Goal HPV. Due on due Goal Creatinine. Due on due Goal UDT. Due on due Goal COUNTER WEIGHER Scanned. Due on due Goal OARS. Due on due Goal AST (SGOT). Due on due Goal SHADE HANGER Paperwork. Due on due Goal Order Annual PT. Due on due Goal FIT. Due on due Goal Lipid panel. Due on due Goal Review Allergy L ist. Due on due Goal Height. Due on d ue Goal Weight. Due on d ue Goal FIT-DNA. Due on due Goal Update Social Hi story. Due on due Goal Hepatitis C scre ening. Due on due Goal Unhealthy drug u se screening. Due on due Goal PHQ-9. Due on du e Goal Medication Recon ciliation. Due on due Goal Zoster vaccine ( ). Due on due Goal Hepatitis C scre ening. Due on due Goal COUNTER WEIGHER Scanned. Due on due Goal Order Annual PT. Due on due Goal Creatinine. Due on due Goal ALT (SGPT). Due on due Goal AST (SGOT). Due on due Goal SHADE HANGER Paperwork. Due on due Goal OARS. Due on due Goal UDT. Due on due Goal Unhealthy drug u se screening. Due on due Goal PHQ-9. Due on du e Goal FIT. Due on due Goal Weight. Due on d ue Goal Medication Recon ciliation. Due on due Goal HPV. Due on due Goal Review Allergy L ist. Due on due Goal Lipid panel. Due on due Goal CT-Colonography. Due on due Goal Zoster vaccine ( 1st). Due on due Goal Height. Due on d ue Goal FIT-DNA. Due on due Goal Tobacco Use. Due on due Goal Update Social Hi story. Due on due Goal Creatinine. Due on due Goal PHQ-9. Due on du e Goal HPV. Due on due Goal COUNTER WEIGHER Scanned. Due on due Goal AST (SGOT). Due on due Goal Order Annual PT. Due on due Goal ALT (SGPT). Due on due Goal OARS. Due on due Goal UDT. Due on due Goal SHADE HANGER Paperwork. Due on due Goal Review Allergy L ist. Due on due Goal Zoster vaccine ( 1st). Due on due Goal FIT. Due on due Goal Update Social Hi story. Due on due Goal Tobacco Use. Due on due Goal Height. Due on d ue Goal Medication Recon ciliation. Due on due Goal Unhealthy drug u se screening. Due on due Goal FIT-DNA. Due on due Goal Lipid panel. Due on due Goal Hepatitis C scre ening. Due on due Goal CT-Colonography. Due on due Goal Weight. Due on d ue Goal Lipid panel. Due on due Goal Unhealthy drug u se screening. Due on due Goal Zoster vaccine ( 1st). Due on due Goal HPV. Due on due Goal Hepatitis C scre ening. Due on due Goal FIT-DNA. Due on due Goal FIT. Due on due Goal CT-Colonography. Due on due Goal Medication Recon ciliation. Due on due Goal Tobacco Use. Due on due Goal Review Allergy L ist. Due on due Goal Weight. Due on d ue Goal Height. Due on d ue Goal PHQ-9. Due on du e Goal Update Social Hi story. Due on due Goal AST (SGOT). Due on due Goal UDT. Due on due Goal Creatinine. Due on due Goal SHADE HANGER Paperwork. Due on due Goal COUNTER WEIGHER Scanned. Due on due Goal ALT (SGPT). Due on due Goal OARS. Due on due Goal Order Annual PT. Due on due Goal Creatinine. Due on due Goal SHADE HANGER Paperwork. Due on due Goal UDT. Due on due Goal ALT (SGPT). Due on due Goal COUNTER WEIGHER Scanned. Due on due Goal OARS. Due on due Goal AST (SGOT). Due on due Goal Order Annual PT. Due on due Goal Update Social Hi story. Due on due Goal Review Allergy L ist. Due on due Goal Tobacco Use. Due on due Goal PHQ-9. Due on [...] Goal Tobacco Use. Due on due Goal PHQ-9. Due on du e Goal Medication Recon ciliation. Due on due Goal Height. Due on d ue Goal Weight. Due on d ue Goal Creatinine. Due on due Goal SHADE HANGER Paperwork. Due on due Goal UDT. Due on due Goal ALT (SGPT). Due on due Goal COUNTER WEIGHER Scanned. Due on due Goal OARS. Due on due Goal Creatinine. Due on due Goal PHQ-9. Due on du e Goal Medication Recon ciliation. Due on due Goal SHADE HANGER Paperwork. Due on due Goal UDT. Due on due Goal ALT (SGPT). Due on due Goal COUNTER WEIGHER Scanned. Due on due Goal OARS. Due on due Goal AST (SGOT). Due on due Goal Order Annual PT. Due on due Goal Update Social Hi story. Due on due Goal Review Allergy L ist. Due on due Goal Tobacco Use. Due on due Goal Height. Due on d ue Goal Weight. Due on d ue Goal AST (SGOT). Due on due Goal Order Annual PT. Due on due Goal Update Social Hi story. Due on due Goal Review Allergy L ist. Due on due Goal Tobacco Use. Due on due Goal PHQ-9. Due on du e Goal Medication Recon ciliation. Due on due Goal Height. Due on d ue Goal Weight. Due on d ue Goal Creatinine. Due on due Goal SHADE HANGER Paperwork. Due on due Goal UDT. Due on due Goal ALT (SGPT). Due on due Goal COUNTER WEIGHER Scanned. Due on due Goal OARS. Due on due Goal Tobacco Use. Due on due Goal PHQ-9. Due on du e Goal Medication Recon ciliation. Due on due Goal Height. Due on d ue Goal Creatinine. Due on due Goal SHADE HANGER Paperwork. Due on due Goal UDT. Due on due Goal ALT (SGPT). Due on due Goal COUNTER WEIGHER Scanned. Due on due Goal OARS. Due on due Goal AST (SGOT). Due on due Goal Order Annual PT. Due on due Goal Update Social Hi story. Due on due Goal Review Allergy L ist. Due on due Goal Weight. Due on d ue Goal COUNTER WEIGHER Scanned. Due on due Goal OARS. Due on due Goal AST (SGOT). Due on due Goal Order Annual PT. Due on due Goal Update Social Hi story. Due on due Goal Review Allergy L ist. Due on due Goal Tobacco Use. Due on due Goal PHQ-9. Due on du e Goal Medication Recon ciliation. Due on due Goal Height. Due on d ue Goal Weight. Due on d ue Goal Creatinine. Due on due Goal SHADE HANGER Paperwork. Due on due Goal UDT. Due on due Goal ALT (SGPT). Due on due Goal Creatinine. Due on due Goal SHADE HANGER Paperwork. Due on due Goal UDT. Due on due Goal ALT (SGPT). Due on due Goal COUNTER WEIGHER Scanned. Due on due Goal OARS. Due on due Goal AST (SGOT). Due on due Goal Order Annual PT. Due on due Goal Update Social Hi story. Due on due Goal Review Allergy L ist. Due on due Goal Tobacco Use. Due on due Goal PHQ-9. Due on du e Goal Medication Recon ciliation. Due on due Goal Height. Due on d ue Goal Weight. Due on d ue Goal Creatinine. Due on due Goal SHADE HANGER Paperwork. Due on due Goal UDT. Due on due Goal ALT (SGPT). Due on due Goal COUNTER WEIGHER Scanned. Due on due Goal OARS. Due on due Goal AST (SGOT). Due on due Goal Order Annual PT. Due on due Goal Update Social Hi story. Due on due Goal Review Allergy L ist. Due on due Goal Tobacco Use. Due on due Goal PHQ-9. Due on du e Goal Medication Recon ciliation. Due on due Goal Height. Due on d ue Goal Weight. Due on d ue Goal Creatinine. Due on due Goal UDT. Due on due Goal SHADE HANGER Paperwork. Due on due Goal AST (SGOT). Due on due Goal Order Annual PT. Due on due Goal Update Social Hi story. Due on due Goal Review Allergy L ist. Due on due Goal Tobacco Use. Due on due Goal PHQ-9. Due on du e Goal Medication Recon ciliation. Due on due Goal Height. Due on d ue Goal Weight. Due on d ue Goal ALT (SGPT). Due on due Goal COUNTER WEIGHER Scanned. Due on due Goal OARS. Due on due Goal SHADE HANGER Paperwork. Due on due Goal UDT. Due on due Goal ALT (SGPT). Due on due Goal COUNTER WEIGHER Scanned. Due on due Goal OARS. Due on due Goal AST (SGOT). Due on due Goal Order Annual PT. Due on due Goal Update Social Hi story. Due on due Goal Review Allergy L ist. Due on due Goal Tobacco Use. Due on due Goal PHQ-9. Due on du e Goal Medication Recon ciliation. Due on due Goal Height. Due on d ue Goal Weight. Due on d ue Goal Creatinine. Due on due Goal Order Annual PT. Due on due Goal Update Social Hi story. Due on due Goal Review Allergy L ist. Due on due Goal Tobacco Use. Due on due Goal PHQ-9. Due on du e Goal Medication Recon ciliation. Due on due Goal Height. Due on d ue Goal Weight. Due on d ue Goal Creatinine. Due on due Goal SHADE HANGER Paperwork. Due on due Goal UDT. Due on due Goal ALT (SGPT). Due on due Goal COUNTER WEIGHER Scanned. Due on due Goal OARS. Due on due Goal AST (SGOT). Due on due Goal Creatinine. Due on due Goal SHADE HANGER Paperwork. Due on due Goal UDT. Due on due Goal ALT (SGPT). Due on due Goal COUNTER WEIGHER Scanned. Due on due Goal OARS. Due on due Goal AST (SGOT). Due on due Goal Order Annual PT. Due on due Goal Update Social Hi story. Due on due Goal Review Allergy L ist. Due on due Goal Tobacco Use. Due on due Goal PHQ-9. Due on du e Goal Medication Recon ciliation. Due on due Goal Height. Due on d ue Goal Weight. Due on d ue Goal Creatinine. Due on due Goal SHADE HANGER Paperwork. Due on due Goal UDT. Due on due Goal ALT (SGPT). Due on due Goal COUNTER WEIGHER Scanned. Due on due Goal OARS. Due [...] Goal Height. Due on d ue Goal AST (SGOT). Due on due Goal Order Annual PT. Due on due Goal Update Social Hi story. Due on due Goal Review Allergy L ist. Due on due Goal Tobacco Use. Due on due Goal Creatinine. Due on due Goal SHADE HANGER Paperwork. Due on due Goal UDT. Due on due Goal ALT (SGPT). Due on due Goal COUNTER WEIGHER Scanned. Due on due Goal OARS. Due on due Goal PHQ-9. Due on du e Goal Medication Recon ciliation. Due on due Goal Height. Due on d ue Goal Weight. Due on d ue Goal Update Social Hi story. Due on due Goal Review Allergy L ist. Due on due Goal Tobacco Use. Due on due Goal PHQ-9. Due on du e Goal Medication Recon ciliation. Due on due Goal Height. Due on d ue Goal Weight. Due on d ue Goal Creatinine. Due on due Goal SHADE HANGER Paperwork. Due on due Goal UDT. Due on due Goal ALT (SGPT). Due on due Goal COUNTER WEIGHER Scanned. Due on due Goal OARS. Due on due Goal AST (SGOT). Due on due Goal Order Annual PT. Due on due Goal Update Social Hi story. Due on due Goal Review Allergy L ist. Due on due Goal Tobacco Use. Due on due Goal PHQ-9. Due on du e Goal Medication Recon ciliation. Due on due Goal Height. Due on d ue Goal Weight. Due on d ue Goal Creatinine. Due on due Goal SHADE HANGER Paperwork. Due on due Goal UDT. Due on due Goal ALT (SGPT). Due on due Goal COUNTER WEIGHER Scanned. Due on due Goal OARS. Due on due Goal AST (SGOT). Due on due Goal Order Annual PT. Due on due Goal Tobacco cessation counseling completed Goal Tobacco cessation counseling completed Referral Ordered: Ava Driscoll -[facility] Nursing Providers : Physician Professional Skater (related to Other intervertebral disc degeneration, lumbar region) ordered Referral Ordered: Ava Driscoll -[facility]ician Assistants [facility] Advanced Practice Nursing Providers : Physician Professional Skater (related to Postlaminectomy syndrome, not elsewhere classified) ordered Referral Ordered: Ava Driscoll -[facility]ician Assistants [facility] Advanced Practice Nursing Providers : Physician Professional Skater (related to Other intervertebral disc degeneration, lumbar region) ordered Referral Ordered: Ava Driscoll -Physician Assistants & Advanced Practice Nursing Providers : Physician Professional Skater (related to Postlaminectomy syndrome, not elsewhere classified) ordered Referral Ordered: Ava Driscoll -Physician Marshal & Advanced Practice Nursing Providers : Physician Professional Skater (related to Radiculopathy, lumbar region) ordered Referral Referred To: Ava Driscoll [facility]
[address] [place], [address] [phone] Ordered: Referrals: Physician Assistants [facility] Advanced Practice Nursing Providers : Physician Professional Skater. Ava Driscoll ordered Appointment Marquita Albarado BOOKED Future Order: Radiology Order X- Ray Cervical [...] a 56 y/o female who presents via [facility] for virtual follow up and medication refill in the setting of chronic low back pain. Pain has been worse this month. Denies any new symptoms or changes. Continues to use the [employer] SCS with benefit.Neck pain with radiation into the shoulders has been the most bothersome. Denies any radiation down to the arms. She states she has increased her Ellamore 7.5-325mg to 3x/day due to the increased neck pain. Expressed interest in receiving repeat TPIs. Notes she is cleared by her doctor to hold Eliquis for 3 days after 09/16/22 for the MIHAI. New anti-coagulation hold generated . Needs to schedule PT consult Reports current medication regimen provides 70% pain relief and allows for increased functionality. Continues to utilize Ellamore 7.5-325mg with significant benefit. Denies OIC or [...] allows for increased functionality. Continues to utilize Ellamore 7.5-325mg with significant benefit. Denies OIC or [...] allows for increased functionality. Continues to utilize Ellamore 7.5-325mg with significant benefit. Denies OIC or [...] are relieved by pain meds/drugs and rest. Comments: Robb long presents to the clinic today for an SCS reprogramming to address low back pain surrounding SCS battery. Karon from [employer] met with her for the reprogramming. Patient also trialed TPIs around battery site to trial for pain relief. If TPIs are deemed unsuccessful, plan to move forward with SCS revision low back pain Comments: Zach capone is a 56 y/o [...] was recently fired from her job at [employer]. She is currently looking for a new job and have various interviews lined up. Reports current medication regimen provides 85% relief and allows for increased functionality. She states she typically takes Ellamore 7.5-325mg 1-2x/day or sometimes not at all [...] in trialing imodium. 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 Reports current medication regimen provides 75% pain relief and allows for increased functionality. She notes she is taking #2-3tabs Ellamore 7.5-325mg every day. Denies side effects from [...] that need to be answered on a [facility] letterhead. Reports current medication regimen provides 75% pain relief and allows for increased functionality. She notes she is taking #2-3tabs Ellamore 7.5-325mg every day. Denies side effects from [...] 55 y/o female, meeting with us via [employer] for virtual follow up and medication refill, [...] functionality. She notes she is taking #2-3tabs Ellamore 7.5-325mg every day. . Denies side effects [...] 55 y/o female, meeting with us via [employer] for virtual follow up and medication refill in setting of chronic low back pain. She states her low back pain is stable this month. She would like to trial SCS once she reaches full-time status at her new job at [employer] but she would like to start the PA process at this time. She has completed her MRI at [facility] but missed her Psych VVShe states her neck pain is also worse this month.Reports current medication regimen provides 75% pain relief and allows for increased functionality. She notes she is taking #2-3tabs Ellamore 7.5-325mg every day. She reports she recently [...] full-time status at her new job at [employer] but she would like to start the PA process at this time. She states her neck pain is also worse this month and endorses difficulty swallowing. She states her previous neck surgery was done in [place](?)Reports current medication regimen provides 75% pain relief and allows for increased functionality. She notes she is taking #2-3tabs Ellamore 7.5-325mg every day. Denies side effects from current medication regimen.No other concerns today. low back pain Duration: chroni c. The problem is stable. It occurs persistently. The patient describes the pain as an ache. Symptoms are aggravated by ascending stairs, bending, descending stairs, lifting and prolonged positioning. Symptoms are relieved by lying down and sitting. low back pain (comments) Krzysztof [...] She got a new job at [employer] at [employer].Reports current medication regimen provides 70% pain relief [...] see pcp.She is taking a trip to [place], returning 12/30/20.Reports current medication regimen provides 75% pain relief and allows for increased functionality. Denies side effects from current medication regimen. Patient presents with #1 Ellamore (hydrocodone/acet) 7.5-325m - surplus. Pharmacy only gave [...] medication regimen.She is taking a trip to [place] returning 7/24/21No other concerns today. low back pain Severity [...] viera is meeting with us today via [employer] [facility] for following up and medication refill. [...] a new job after her vacation to [place] to visit family. She will return on [...] for a follow up to fill out ID unemployment insurance paperwork. Low back pain persists this month, but medication does help to some extent. She feels her pain is moderately managed at this time. She recently quit her job at [employer] since she could not complete the assigned [...] 08/09/20 so far. 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 She would like an excuse letter to not wipe tables or limit the number of tables she can wipes. Hydrocodone helps pain, 75% pain relief . Denies SE from medication including constipation. She stopped going to pool therapy, [facility] has not receive the order to [...] Reports great benefit with poop PT at [place] [facility] and requests new order.Reports current medication regimen [...] sitting and changing positions. 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 She requests restrictions include breaks to [...] old. She follows up with Psychiatry at [facility]. Functional Status Date Functional Assessmen t No Information Instructions Date Instruction Additional Infor mation No Information Assessments Type Assessment Date No Information Patient Care Teams Name Effective Dates (start - stop) Status Members No Information
== END 2022-10-09 14:33 | disposition home or self-care (01) ==
LOC: ED 14:06
PROVIDERS: Emergency Provider Family Medicine; PCP Physician Assistant Medical
DX: R42 Dizziness and giddiness (principal)
CPT/HCPCS: 36415; 80048; 85025; 96374; 99283; 99284; J2060; J7030

== ENCOUNTER 2022-11-20 10:26 | Emergency (ER) | payer MEDICAID, SELFPAY ==
[2022-11-20 10:36] VITALS: BP 112/79; PULSE 78; RESP 18; TEMP 36.4; O2SAT 98
--- NOTE | 2022-11-20 10:51 | ED_ITS ---
HPI - General Adult General Chief complaint: Back Injury/Pain Stated complaint: back pain Time Seen by Provider: 11/20/22 10:42 Source: patient Mode of arrival: ambulatory Limitations: no limitations History of Present Illness HPI narrative: Patient is a 57-year-old female with a chronic back stimulator for pain, follows with [facility]. She takes [place] 2 tablets a day on a regular basis. She is was doing some stretching yesterday and felt her back strain primarily in the left low back. She has no bowel or bladder symptoms, fever, chills, perineal numbness. The patient has no lower extremity symptoms. She presents to ER for evaluation. She is allergic to Bactrim and sulfa. Related Data Home Medications Medication Instructions Recorded Confirmed divalproex 500 mg tablet,extended 500 mg PO QDAY 05/14/22 05/14/22 release 24 hr gabapentin 300 mg capsule 600 mg PO QHS 05/14/22 05/14/22 hydrocodone 7.5 mg-acetaminophen tab PO QDAY PRN 05/14/22 05/14/22 325 mg tablet hydroxyzine HCl 25 mg tablet 25 mg PO QHS 05/14/22 05/14/22 lidocaine 5 % topical ointment 1 applic topical QHS PRN 05/14/22 05/14/22 lurasidone 80 mg tablet (Latuda) 80 mg PO QDAY 05/14/22 05/14/22 nitrofurantoin 100 mg PO DAILY 05/14/22 05/14/22 monohydrate/macrocrystals 100 mg capsule pantoprazole 40 mg tablet,delayed 40 mg PO QDAY 05/14/22 05/14/22 release sertraline 50 mg tablet 50 mg PO QDAY 05/14/22 05/14/22 tolterodine 2 mg capsule,extended 2 mg PO QDAY 05/14/22 05/14/22 release 24 hr topiramate 50 mg tablet 50 mg PO QDAY 05/14/22 05/14/22 trazodone 50 mg tablet 50 mg PO QHS PRN 05/14/22 05/14/22 Previous Rx's Medication Instructions Recorded apixaban 5 mg (74 tabs) tablets in 5 mg PO BID #74 ea 03/15/22 a dose pack ([id number] DVT-PE Treat 30D Start) cyclobenzaprine 10 mg tablet 10 mg PO TID #15 tabs 09/13/22 lorazepam 0.5 mg tablet (Ativan) 0.5 mg PO TID PRN #7 tabs 10/09/22 Allergies Allergy/AdvReac Type Severity Reaction Status Date / Time sulfamethoxazole Allergy Verified 05/14/22 14:29 [From Bactrim] trimethoprim [From Bactrim] Allergy Verified 05/14/22 14:29 Review of Systems Status of ROS: Reports: 6 or more systems reviewed and unremarkable except as noted in History and below PFSH PFS Medical History No significant past medical history Surgical History H/O neck surgery ?Z98.890 - Other specified postprocedural states (ICD-10) H/O tubal ligation ?Z98.51 - Tubal ligation status (ICD-10) H/O rotator cuff surgery ?Z98.890 - Other specified postprocedural states (ICD-10) H/O: hysterectomy ?Z90.710 - Acquired absence of both cervix and uterus (ICD-10) Social History Smoking Status: Current every day smoker What tobacco products do you use: cigarettes How often do you have a drink containing alcohol: monthly or less AUDIT-C Alcohol total score: 1 Non-prescribed substance use: denies use service: No Exam Narrative: Exam Narrative: Objective: Patient's vital signs unremarkable in general no apparent distress Back exam shows some tenderness with motion of her back and sitting up in bed Lower extremities show normal strength sensation negative straight leg raise bilaterally. Const: Vital Signs, click to edit/add: Vital Signs - 24 hr 11/20/22 10:36 Temperature 97.6 F Pulse Rate [Pulse Oximeter] 78 Respiratory Rate 18 Blood Pressure [Ri ght Upper Arm] 112/79 Pulse Oximetry 98 Oxygen Delivery Me thod Room Air Course Vital Signs Vital signs: Initial Vital Signs Temperature 97.6 F 11/20/22 10:36 Temperature Source Temporal Artery Scan 11/20/22 10:36 Pulse Rate 78 11/20/22 10:36 Pulse Rhythm Regular 11/20/22 10:36 Respiratory Rate 18 11/20/22 10:36 Blood Pressure 112/79 11/20/22 10:36 Blood Pressure Mean 90 11/20/22 10:36 Blood Pressure Position Sitting 11/20/22 10:36 Pulse Oximetry 98 11/20/22 10:36 Oxygen Delivery Method Room Air 11/20/22 10:36 Vital Signs Temperature 97.6 F 11/20/22 10:36 Pulse Rate 78 11/20/22 10:36 Respiratory Rate 18 11/20/22 10:36 Blood Pressure 112/79 11/20/22 10:36 Pulse Oximetry 98 11/20/22 10:36 Oxygen Delivery Method Room Air 11/20/22 10:36 Temperature 97.6 F 11/20/22 10:36 Pulse Rate 78 11/20/22 10:36 Respiratory Rate 18 11/20/22 10:36 Blood Pressure 112/79 11/20/22 10:36 Pulse Oximetry 98 11/20/22 10:36 Oxygen Delivery Method Room Air 11/20/22 10:36 Medical Decision Making MDM Narrative Medical decision making narrative: Patient has exacerbation of acute chronic low back pain. She has a implanted stimulator. She is on regular narcotic. I think at this point to be reasonable to treat her with 1 time narcotic 1 time Toradol. And resume her medications. Would have her hold her [place] for the next 6-8 hours. Have her update her regular pain clinic or physician within the next 24 hours. Of note for off work today. Return to ED as needed. Discharge Plan Discharge Clinical Impression: Strain of lumbar region, Chronic low back pain Patient Disposition: Home w/ Parent or Adult Condition: Stable Additional Instructions: Rest, light activity, would recommend holding off on any [place] for the next 6-8 hours. May resume normal medications at that time. Update regular pain clinic in the next 24-48 hours as needed. Light activity today, note for off work today given. Activity Level: Light activity Discharge Diet: Regular Prescriptions: No Action hydrocodone-acetaminophen 7.5-325 mg tablet PO QDAY PRN trazodone 50 mg tablet 50 mg PO QHS PRN Patient Comments: TAKE ONE-HALF TO THREE TABLETS (25-150 MG) BY MOUTH AT BEDTIME IF NEEDED FOR SLEEP. sertraline 50 mg tablet 50 mg PO QDAY Patient Comments: TAKE ONE TABLET BY MOUTH DAILY gabapentin 300 mg capsule 600 mg PO QHS nitrofurantoin monohyd/m-cryst 100 mg capsule 100 mg PO DAILY topiramate 50 mg tablet 50 mg PO QDAY hydroxyzine HCl 25 mg tablet 25 mg PO QHS Patient Comments: TAKE 1 TO 2 TABLETS (25-50MG) BY MOUTH AT BEDTIME divalproex 500 mg tablet extended release 24 hr 500 mg PO QDAY pantoprazole 40 mg tablet,delayed release (DR/EC) 40 mg PO QDAY tolterodine 2 mg capsule,extended release 24hr 2 mg PO QDAY Patient Comments: TAKE 1 CAPSULE (2 MG) BY MOUTH ONCE DAILY. Latuda 80 mg tablet 80 mg PO QDAY Patient Comments: TAKE ONE TABLET (80MG) BY MOUTH ONCE DAILY WITH DINNER lidocaine 5 % ointment 1 applic topical QHS PRN Patient Comments: APPLY BY TOPICAL ROUTE 1 - 3 TIMES EVERY DAY TO AFFECTED AREA(S) NEEDED NEEDED FOR NERVE PAIN cyclobenzaprine 10 mg tablet 10 mg PO TID Qty: 15 0RF Eliquis DVT-PE Treat 30D Start 5 mg (74 tabs) tablets,dose pack 5 mg PO BID Qty: 74 0RF lorazepam [Ativan] 0.5 mg tablet 0.5 mg PO TID PRNQty: 7 0RF Follow Up/Referrals: Ava Chirinos, MEGHA [Primary Care Provider] - Stand Alone Forms: [facility] Info Instructions
--- OUTSIDE RECORDS SUMMARY | 2022-11-20 10:53 | XMS_ITS | Continuity of Care Document ---
Author Name Unknown Organization [facility] Address [address] [place] [address] Care Team Providers Care Scrub Woman Name Role Phone Navneet Urena CRNA Unavailable Unavailable Procedures Procedure Date Percutaneous Image guided injection, dra kaur, or ANESTH, HEAD/NECK/PTRUNK Percutaneous Image guided neuromodulatio n or intra Advance Directives Directive Yes / No Effective Date File Name No Information Encounters Encounter Description Practice Location Reason(s) For Visit Diagnoses Date Provider Providers Copied on Encounter [facility], [address] [place], [place], [id number], [facility] No Information 3 Romel Toth. [address] [place], [place], [id number] , . tel:[phone] Referring Provider: Sherri Nick, [address] [place], [address] . tel:[phone] [facility], [address] [place], [place], [id number], [facility] No Information 2 Romel Toth. [address] [place], [place], [id number] , . [phone] Referring Provider: Wallace Rajput, [address] [facility] [address], [place], [address]. tel:[phone] [facility], [address] [place], [place], [id number], [facility] No Information 2 Valente Rasmussen. [address], [facility] [place], [place], [place], [id number] , . [phone] Referring Provider: Wallace Rajput [address], [place], [address]. tel:[phone] Family History Family Member Type Diagnosis Age At Onset No Information Payers Payer name Insurance type Covered democrat ID Authoryisel chavez(s) [facility] [id number] Social History Type Description Quantity Date Captured [...]
--- OUTSIDE RECORDS SUMMARY | 2022-11-20 10:53 | XMS_ITS | Continuity of Care Document ---
Author Name Unknown Organization [facility] enter Address [address] [place] [id number] Phone Care Team Providers Care Hog Trader Name Role Phone [facility] Unavailable Unava ilable Procedures Procedure Date INTERLAMINAR CRV OR THRC INTERLAMINAR CRV OR THRC IMPLANT NEUROELECTRODES 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 Implt neurostim elctr each IMPLANT NEUROELECTRODES Imp neurosti pls gn any type IMPLANT NEUROELECTRODES Implt neurostim elctr each IMPLANT NEUROELECTRODES INJ FORAMEN EPIDURAL L/S INJ FORAMEN EPIDURAL L/S Advance Directives Directive Yes / No Effective Date File Name No Information Encounters Encounter Description Practice Location Reason(s) For Visit Diagnoses Date Provider Providers Copied on Encounter [facility], [address] [place] [address], [id number], [place] tel:[phone] [facility] No Information [facility]. [address] [place] [address], [id number], [place]. tel:[phone] Referring Provider: Sherri Nick, [address] [facility] [place], [address] . tel:[phone] [facility], [address] [place] [address], [id number], tel:[phone] [facility] No Information 2 [facility]. [address] [place] [address], [id number], . tel:[phone] Referring Provider: Wallace [employer] [facility] [address], [address]. tel:[phone] [facility], [address] [place] [address], [id number], tel:[phone] [facility] No Information 2 [facility]. [address] [place] [address], [id number], . tel:[phone] Referring Provider: Wallace [employer] [facility] [address], [address]. tel:[phone] [facility], [address] [place] [address], [id number], tel:[phone] [facility] No Information [facility]. [address] [place] [address], [id number], . tel:[phone] Referring Provider: Wallace [employer] [facility] [address], [address]. tel:[phone] Family History Family Member Type Diagnosis Age At Onset No Information Payers Payer name Insurance type Covered libertarian ID Chaunceyabdullahi tinaana(s) [facility] [id number] Social History Type Description Quantity Date Captured [...]
--- OUTSIDE RECORDS SUMMARY | 2022-11-20 10:54 | XMS_ITS | Continuity of Care Document ---
Author Name Unknown Organization [facility] Address [address] [place] [address] Phone Care Team Providers Care Landcare Facilitator Name Role Phone Sherri Nick MD Unavailable Unavailable Allergies, Adverse Reactions, Alerts Substance Reaction Status Criticality trimethoprim HivesHivesHives Active No Informati on sulfamethoxazole HivesHivesHives Active No Infor mation Medications Medication Instructions Dosage Effective Dates (start - stop) Status Comments hydrocodone 7.5 mg-acetaminophen 325 mg tablet take 1 tablet by oral route every 6 hours as needed for pain, max 1-2/day for chronic pain - Active gabapentin 300 mg capsule take 1 capsule [...] 200 MG - Active Procedures Procedure Date INTERLAMINAR CRV OR THRC OFFICE VISIT, EST TELEMEDICINE INJ TRIGGER POINT, / MUSCL Kenalog Triamcinolone acetonide inj Foll-up eval [...] Diagnoses Date Provider Providers Copied on Encounter [facility], [address] [place] [address], [id number] , [place] tel:[phone] [facility] Radiculopathy, cervical region 3 Park Polanco. [address] [place] [address], [id number] , [place]. tel:[phone] Referring Provider: Ferny Rider, [address] [place] [address], [address]. tel:[phone] OFFICE VISIT, EST TELEMEDICINE [facility], [address] [place] [address], [id number] , [place] tel:[phone] [facility] [place] low back pain (chief complaint) DepressionChronic pain syndromeRadiculop athy, cervical regionRadiculopat hy, lumbar regionFibromyalgi aPostlaminectomy syndrome, not elsewhere classifiedLong term (current) use of opiate analgesic 3 Jerrod Jones. [address], [place], [id number] , [place]. tel:[phone] [facility], [address] [place] [address], [id number] , [place] tel: [phone] [facility] Myalgia, other site 3 Dorene Trejo. [address] [address], [place], [id number] , [place]. tel: [phone] Referring Provider: Ferny Rider, [address] [place] [address], [address]. tel:[phone] OFFICE VISIT, [facility] TELEMEDICINE [facility], [address] [place] [address], [id number] , [place] tel: [phone] [facility] low back pain (chief complaint) DepressionChronic pain syndromeRadiculop athy, cervical regionRadiculopat hy, lumbar regionFibromyalgi aPostlaminectomy syndrome, not elsewhere classifiedLong term (current) use of opiate analgesic 3 Jerrod Jones. [address] [address], [place], [place], [id number] , [place]. tel: [phone] [facility], [address] [place] [address], [id number] , [place] tel: [phone] [facility] No Information 3 Jerrod Jones. [address] [address], [place], [id number] , [place]. tel: [phone] OFFICE/OUTPAT IENT VISIT, [facility], [address] [place] [address], [id number] , [place] tel: [phone] [facility] low back pain (chief complaint) DepressionChronic pain syndromeRadiculop athy, lumbar regionFibromyalgi aPostlaminectomy syndrome, not elsewhere classifiedLong term (current) use of opiate analgesicRadiculo henny, cervical region 3 Nyongesa Karen. [address], [place], [place], [id number] , [place]. tel: [phone] Referring Provider: Ferny Rider, [address] [place] [address], [address]. tel:[phone] OFFICE VISIT, EST TELEMEDICINE [facility], [address] [place] [address], [id number] , [place] tel:[phone] [facility] low back pain (chief complaint) DepressionChronic pain syndromeOther intervertebral disc degeneration, lumbar regionRadiculopat hy, lumbar regionFibromyalgi aPostlaminectomy syndrome, not elsewhere classifiedLong term (current) use of opiate analgesic Apr-3 0- 2 Jerrod Jones. [address], [place], [place], [id number] , [place]. tel:[phone] Referring Provider: Ferny Rider, [address] [place] [address], [address]. tel:[phone] OFFICE/OUTPAT IENT VISIT, [facility], [address] [place] [address], [id number] , [place] tel:[phone] [facility] low back pain (chief complaint) Radiculopathy, lumbar regionMyalgia, other site Sep-2 2 Catherinebecca Trejo. [address], [place], [place], [id number] , [place]. [phone] [facility], [address] [place] [address], [id number] , [place] tel:[phone] [facility] No Information Sep-2 2 Arpan Isaacs. [address] [place] [address], [id number] , [place]. [phone] Referring Provider: Ferny Rider, [address] [place] [address], [address]. tel:[phone] OFFICE/OUTPAT IENT VISIT, [facility], [address] [place] [address], [id number] , [place] [phone] [facility] low back pain (chief complaint) DepressionChronic pain syndromeOther intervertebral disc degeneration, lumbar regionRadiculopat hy, lumbar regionFibromyalgi aPostlaminectomy syndrome, not elsewhere classifiedLong term (current) use of opiate analgesicEncounte r for screening for other disorderEncounter for therapeutic drug level monitoring 2 Jerrod Jones. [address], [place], [id number] , [place]. tel:[phone] Referring Provider: Ferny Rider, [address] [place] [address], [address]. [phone] OFFICE VISIT, EST TELEMEDICINE [facility], [address] [place] [address], [id number] , [place] tel: [phone] [facility] low back pain (chief complaint) DepressionChronic pain syndromeOther intervertebral disc degeneration, lumbar regionRadiculopat hy, lumbar regionFibromyalgi aPostlaminectomy syndrome, not elsewhere classifiedLong term (current) use of opiate analgesic 2 Jerrod Karen. [address] [facility] [address], [place], [id number] , [place]. tel:[phone] Referring Provider: Ferny Rider, [address] [place] [address], [address]. [phone] OFFICE VISIT, EST TELEMEDICINE [facility], [address] [place] [address], [id number] , [place] tel: [phone] [facility] low back pain (chief complaint) Radiculopathy, lumbar regionOther intervertebral disc degeneration, lumbar regionLong term (current) use of opiate analgesicDepressi onChronic pain syndromeFibromyal giaPostlaminectom y syndrome, not elsewhere classified 2 Dorene Trejo. [address] [facility] [address], [place], [id number] , [place]. tel:[phone] [facility], [address] [place] [address], [id number] , [place] tel: [phone] [facility] Radiculopathy, lumbar region 2 Jerrod Jones. [address], [place], [place], [id number] , [place]. tel:[phone] Referring Provider: Ferny Rider, [address] [place] [address], [address]. tel:[phone] [facility], [address] [place] [address], [id number] , [place] tel:[phone] [facility] Radiculopathy, lumbar region 2 Regulo Gonsalez. [facility], [address], [place], [address], [place]. tel:[phone] Referring Provider: Ferny Rider, [address] [place] [address], [address]. tel:[phone] OFFICE VISIT, EST TELEMEDICINE [facility], [address] [place] [address], [id number] , [place] tel:[phone] [facility] low back pain (chief complaint) Radiculopathy, lumbar regionOther intervertebral disc degeneration, lumbar regionLong term (current) use of opiate analgesicDepressi onChronic pain syndromeFibromyal giaPostlaminectom y syndrome, not elsewhere classifiedTobacco use disorder, moderate 2 Rashmisa Karen. [address] [facility] [address], [place], [place], [id number] , [place]. tel:[phone] Referring Provider: Ava Chirinos [facility] [address] [facility], [place], [address]. tel:[phone] [facility], [address] [place] [address], [id number] , [place] tel:[phone] [facility] Other intervertebral disc degeneration, lumbar regionRadiculopat hy, lumbar region Jun- 2 Jerrod Jones. [address] [facility] [address], [place], [place], [id number] , [place]. tel:[phone] Referring Provider: Ferny Rider, [address] [place] [address], [address]. tel:[phone] [facility], [address] [place] [address], [id number] , [place] tel:[phone] [facility] No Information 2 Jerrod Jones. [address], [place], [id number] , [place]. tel:[phone] Referring Provider: Ferny Rider, [address] [place] [address], [address]. [phone] [facility], [address] [place] [address], [id number] , [place] [phone] [facility] Radiculopathy, lumbar region 2 Regulo Gonsalez. [facility], [address], [place], [address], [place]. tel:[phone] Referring Provider: Ferny Rider, [address] [place] [address], [address]. [phone] OFFICE VISIT, EST TELEMEDICINE [facility], [address] [place] [address], [id number] , [place] tel:[phone] [facility] low back pain (chief complaint) USP (current) use of opiate analgesicDepressi onChronic pain syndromeOther intervertebral disc degeneration, lumbar regionFibromyalgi aPostlaminectomy syndrome, not elsewhere classifiedRadicul opathy, lumbar regionTobacco use disorder, moderate 0 2 Jerrod Jones. [address] [facility] [address], [place], [id number] , [place]. tel:[phone] Referring Provider: Ferny Rider, [address] [place] [address], [address]. [phone] [facility], [address] [place] [address], [id number] , [place] tel:[phone] [facility] No Information 1 Jerrod Jones. [address], [place], [id number] , [place]. tel:[phone] Psych Dx Eval [facility], [address] [facility] [place], [id number] , [place] tel: [phone] [facility] Pain disorder with related psychological factorsBipolar disorder 1 Yvonne Beltran. [address] [facility] [place], [id number] , [place]. tel: [phone] OFFICE VISIT, EST TELEMEDICINE [facility], [address] [place] [address] [place], [id number] , [place] tel: [phone] 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 [address], [place], [id number] , [place]. tel: [phone] [facility], [address] [place] [address] [place], [place], [id number] , [place] tel: [phone] [facility] No Information 1 Arpan Isaacs. [address] [place] [address] [place], [place], [id number] , [place]. tel: [phone] OFFICE/OUTPAT IENT VISIT, EST [facility], [address] [place] [address] [place], [place], [id number] , [place] tel: [phone] [facility] low back pain (chief complaint) USP (current) use of opiate analgesicDepressi onChronic pain syndromeOther intervertebral disc degeneration, lumbar regionFibromyalgi aPostlaminectomy syndrome, not elsewhere classifiedEncount er for therapeutic drug level monitoringRadicul opathy, lumbar region 1 Jerrod Jones. [address], [place], [id number] , [place]. tel: [phone] Referring Provider: Ferny Rider, [address] [place] [address], [address]. tel:[phone] [facility], [address] [place], [place], [id number] , [place] tel: [phone] [facility] No Information 1 [facility] Jones. [address] [facility] [address], [place], [id number] , [place]. tel: [phone] OFFICE VISIT, EST TELEMEDICINE [facility], [address] [place] [address], [id number] , [place] tel: [phone] [facility] low back pain (chief complaint) USP (current) use of opiate analgesicDepressi onChronic pain syndromeOther intervertebral disc degeneration, lumbar regionFibromyalgi aPostlaminectomy syndrome, not elsewhere classified 1 [facility] Jones. [address] [facility] [address] [facility] [address], [place], [place], [id number] , [place]. tel: [phone] Referring Provider: Ferny Rider, [address] [place] [address], [address]. tel:[phone] OFFICE VISIT, EST TELEMEDICINE [facility], [address] [place] [address], [id number] , [place] tel: [phone] [facility] low back pain (chief complaint) Chronic pain syndromeOther intervertebral disc degeneration, lumbar regionFibromyalgi aPostlaminectomy syndrome, not elsewhere classifiedLong term (current) use of opiate analgesicDepressi on 1 [facility] Karen. [address], [place], [place], [id number] , [place]. tel: [phone] Referring Provider: Ferny Rider, [address] [place] [address], [address]. tel:[phone] OFFICE VISIT, EST TELEMEDICINE [facility], [address] [place] [address], [id number] , [place] tel: [phone] [facility] low back pain (chief complaint) Chronic pain syndromeOther intervertebral disc degeneration, lumbar regionFibromyalgi aPostlaminectomy syndrome, not elsewhere classifiedLong term (current) use of opiate analgesicDepressi onTobacco use disorder, moderate 1 Nyongesa Karen. [address] [facility] [address], [place], [place], [id number] , [place]. tel: [phone] Referring Provider: Ferny Rider, [address] [place], [address]. tel:[phone] [facility], [address] [place] [address], [id number] , [place] tel: [phone] [facility] [place] No Information 1 Nyongesa Karen. [address] [facility] [address], [place], [place], [id number] , [place]. tel: [phone] OFFICE/OUTPAT IENT VISIT, [facility], [address] [place] [address], [id number] , [place] tel: [phone] [facility] low back pain (chief complaint) Chronic pain syndromeOther intervertebral disc degeneration, lumbar regionFibromyalgi aPostlaminectomy syndrome, not elsewhere classifiedLong term (current) use of opiate analgesicDepressi onTobacco use disorder, moderateRadiculop athy, lumbar regionEncounter for therapeutic drug level monitoring 1 Nyongesa Karen. [address] [facility] [address], [place], [place], [id number] , [place]. tel: [phone] Referring Provider: Ferny Rider, [address] [place] [address], [address]. tel:[phone] OFFICE VISIT, EST TELEMEDICINE [facility], [address] [place] [address], [id number] , [place] tel: [phone] [facility] low back pain (chief complaint) Chronic pain syndromeOther intervertebral disc degeneration, lumbar regionFibromyalgi aPostlaminectomy syndrome, not elsewhere classifiedLong term (current) use of opiate analgesicDepressi onTobacco use disorder, moderateRadiculop athy, lumbar region 1 Nyongesa Karen. [address] [facility] [address], [place], [place], [id number] , [place]. [phone] Referring Provider: Ferny Rider, [address] [place] [address], [address]. [phone] OFFICE/OUTPAT IENT VISIT, [facility], [address] [place] [address], [id number] , [place] tel:[phone] [facility] low back pain (chief complaint) Chronic pain syndromeOther intervertebral disc degeneration, lumbar regionFibromyalgi aPostlaminectomy syndrome, not elsewhere classifiedLong term (current) use of opiate analgesicDepressi onTobacco use disorder, moderateRadiculop athy, lumbar region Aug- 1 Nyongesa Karen. [address] [facility] [address], [place], [place], [id number] , [place]. tel:[phone] Referring Provider: Ferny Rider, [address] [place] [address], [address]. [phone] OFFICE VISIT, EST TELEMEDICINE [facility], [address] [place] [address], [id number] , [place] tel:[phone] [facility] low back pain (chief complaint) Chronic pain syndromeOther intervertebral disc degeneration, lumbar regionFibromyalgi aPostlaminectomy syndrome, not elsewhere classifiedLong term (current) use of opiate analgesicDepressi onTobacco use disorder, moderateRadiculop athy, lumbar region Aug- 1 Nyongesa Karen. [address] [facility] [address], [place], [place], [id number] , [place]. tel:[phone] Referring Provider: Ferny Rider, [address] [place] [address], [address]. [phone] [facility], [address] [place] [address], [id number] , [place] tel:[phone] [facility] No Information Aug- 0 1 Nyongesa Karen. [address] [facility] [address], [place], [id number] , . [phone] Referring Provider: Ferny Rider, [address] [place] [address], [address]. [phone] [facility], [address] [place] [address], [id number] , [place] [phone] [facility] Radiculopathy, lumbar region Aug-0 1 [facility], [address], [place], [address], [place]. tel:[phone] Referring Provider: Ferny Rider, [address] [place] [address], [address]. [phone] OFFICE VISIT, EST TELEMEDICINE [facility], [address] [place] [address], [id number] , [place] [phone] [facility] low back pain (chief complaint) Chronic pain syndromeOther intervertebral disc degeneration, lumbar regionFibromyalgi aPostlaminectomy syndrome, not elsewhere classifiedLong term (current) use of opiate analgesicDepressi onTobacco use disorder, moderateRadiculop athy, lumbar region 1 Rashmisa Karen. [address] [place] [address] [address], [place], [place], [id number] , [place]. [phone] Referring Provider: Ferny Rider, [address] [place] [address], [address]. [phone] [facility], [address] [place] [address], [id number] , [place] tel:[phone] [facility] No Information 1 Nyongesa Karen. [address] [place] [address] [address], [place], [place], [id number] , [place]. [phone] Referring Provider: Ferny Rider, [address] [place] [address], [address]. [phone] OFFICE VISIT, EST TELEMEDICINE [facility], [address] [place] [address], [id number] , [place] [phone] [facility] low back pain (chief complaint) Chronic pain syndromeOther intervertebral disc degeneration, lumbar regionFibromyalgi aPostlaminectomy syndrome, not elsewhere classifiedLong term (current) use of opiate analgesicDepressi onTobacco use disorder, moderateEncounter for therapeutic drug level monitoring 2- 1 Nyongesa Karen. [address], [place], [id number] , [place]. [phone] Referring Provider: Ferny Rider, [address] [place] [address], [address]. [phone] OFFICE VISIT, EST TELEMEDICINE [facility], [address] [place] [address], [id number] , [place] [phone] [facility] low back pain (chief complaint) Chronic pain syndromeOther intervertebral disc degeneration, lumbar regionFibromyalgi aPostlaminectomy syndrome, not elsewhere classifiedLong term (current) use of opiate analgesicDepressi onTobacco use disorder, moderate May- 8-202 0 Nyongesa Karen. [address], [place], [id number] , [place]. [phone] Referring Provider: Ferny Rider, [address] [place] [address], [address]. tel:[phone] OFFICE VISIT, EST TELEMEDICINE [facility], [address] [place] [address], [id number] , [place] tel:[phone] [facility] low back pain (chief complaint) Chronic pain syndromeOther intervertebral disc degeneration, lumbar regionFibromyalgi aPostlaminectomy syndrome, not elsewhere classifiedLong term (current) use of opiate analgesicDepressi onTobacco use disorder, moderate Apr- 0-202 0 Nyongesa Karen. [address] [facility] [address], [place], [id number] , [place]. [phone] Referring Provider: Ferny Rider, [address] [place] [address], [address]. tel:[phone] OFFICE VISIT, [facility] TELEMEDICINE [facility], [address] [place] [address], [id number] , [place] tel: [phone] [facility] low back pain (chief complaint) Neck Pain (chief complaint) Chronic pain syndromeOther intervertebral disc degeneration, lumbar regionFibromyalgi aPostlaminectomy syndrome, not elsewhere classifiedLong term (current) use of opiate analgesicDepressi onTobacco use disorder, moderate Oct-0 6-202 0 Nyongesa Karen. [address] [facility] [address], [place], [place], [id number] , [place]. tel:[phone] Referring Provider: Ferny Rider, [address] [place] [address], [address]. tel:[phone] OFFICE VISIT, [facility], [address] [place] [address], [id number] , [place] tel: [phone] [facility] low back pain (chief complaint) Chronic pain syndromeOther intervertebral disc degeneration, lumbar regionFibromyalgi aPostlaminectomy syndrome, not elsewhere classifiedLong term (current) use of opiate analgesicDepressi onTobacco use disorder, moderate Sep-0 1-202 0 Nyongesa Karen. [address], [place], [place], [id number] , [place]. tel:[phone] Referring Provider: Ferny Rider, [address] [place] [address], [address]. tel:[phone] OFFICE/OUTPAT IENT VISIT, [facility], [address] [place] [address], [id number] , [place] tel: [phone] [facility] low back pain (chief complaint) Chronic pain syndromeOther intervertebral disc degeneration, lumbar regionFibromyalgi aPostlaminectomy syndrome, not elsewhere classifiedLong term (current) use of opiate analgesicDepressi onTobacco use disorder, moderate Aug-1 0-202 0 Nyongesa Karen. [address] [facility] [address], [place], [id number] , [place]. tel:[phone] Referring Provider: Ferny Rider, [address] [place] [address], [address]. tel:[phone] OFFICE/OUTPAT IENT VISIT, [facility], [address] [place] [address], [id number] , [place] tel:[phone] [facility] low back pain (chief complaint) Chronic pain syndromeOther intervertebral disc degeneration, lumbar regionFibromyalgi aPostlaminectomy syndrome, not elsewhere classifiedDepress ionTobacco use disorder, moderateLong term (current) use of opiate analgesic 0 Nyongesa Karen. [address] [facility] [address], [place], [place], [id number] , [place]. tel:[phone] Referring Provider: Ferny Rider, [address] [place] [address], [id number]. tel:[phone] OFFICE/OUTPAT IENT VISIT, [facility], [address] [place] [address], [id number] , [place] tel:[phone] [facility] low back pain (chief complaint) Chronic pain syndromeOther intervertebral disc degeneration, lumbar regionFibromyalgi aPostlaminectomy syndrome, not elsewhere classifiedEncount er for therapeutic drug level monitoringDepress ionTobacco use disorder, moderate 0 Nyongesa Karen. [address] [facility] [address], [place], [place], [id number] , [place]. tel:[phone] Referring Provider: [facility] [address] [facility] [address], [place], [address]. tel:[phone] Family History Family Member Type Diagnosis Age At Onset No Information Payers Payer name Insurance type Covered libertarian ID Guera chavez(s) rachel [facility] [id number] Social History Type Description Quantity Date Captured Comments Sex Female Smoking Status No Information Chief Complaint And Reason For Visit No Information Reason For Referral Reason For Referral No Information Plan Of Treatment Date Type Action Status Goal FIT. Due on due Goal HPV. Due on due Goal FIT-DNA. Due on due Goal Update Social Hi story. Due on due Goal Tobacco Use. Due on due Goal Zoster vaccine ( 1st). Due on due Goal Hepatitis C scre ening. Due on due Goal Unhealthy drug u se screening. Due on due Goal CT-Colonography. Due on due Goal Weight. Due on d ue Goal Lipid panel. Due on due Goal Height. Due on d ue Goal Review Allergy L ist. Due on due Goal PHQ-9. Due on du e Goal Medication Recon ciliation. Due on due Goal AST (SGOT). Due on due Goal Order Annual PT. Due on due Goal ALT (SGPT). Due on due Goal UDT. Due on due Goal STICKER HAND Scanned. Due on due Goal POWER ELECTRONICS ENGINEER Paperwork. Due on due Goal OARS. Due on due Goal Creatinine. Due on due Goal FIT. Due on due Goal Creatinine. Due on due Goal POWER ELECTRONICS ENGINEER Paperwork. Due on due Goal ALT (SGPT). Due on due Goal HPV. Due on due Goal UDT. Due on due Goal Zoster vaccine ( 1st). Due on due Goal PHQ-9. Due on du e Goal FIT-DNA. Due on due Goal Tobacco Use. Due on due Goal Update Social Hi story. Due on due Goal Weight. Due on d ue Goal STICKER HAND Scanned. Due on due Goal Order Annual [...] Goal AST (SGOT). Due on due Goal STICKER HAND Scanned. Due on due Goal ALT (SGPT). Due on due Goal Medication Recon ciliation. Due on due Goal Unhealthy drug u se screening. Due on due Goal HPV. Due on due Goal FIT-DNA. Due on due Goal Height. Due on d ue Goal Update Social Hi story. Due on due Goal CT-Colonography. Due on due Goal POWER ELECTRONICS ENGINEER Paperwork. Due on due Goal OARS. Due on due Goal Order Annual PT. Due on due Goal Weight. Due on d ue Goal UDT. Due on due Goal Review Allergy L ist. Due on due Goal Tobacco Use. Due on due Goal Lipid panel. Due on due Goal POWER ELECTRONICS ENGINEER Paperwork. Due on due Goal AST (SGOT). Due on due Goal Creatinine. Due on due Goal OARS. Due on due Goal UDT. Due on due Goal Order Annual PT. Due on due Goal Update Social Hi story. Due on due Goal Hepatitis C scre ening. Due on due Goal Zoster vaccine ( 1st). Due on due Goal PHQ-9. Due on du e Goal HPV. Due on due Goal Height. Due on d ue Goal STICKER HAND Scanned. Due on due Goal ALT (SGPT). [...] ue Goal CT-Colonography. Due on due Goal Height. Due on d ue Goal Update Social Hi story. Due on due Goal Unhealthy drug u se screening. Due on due Goal FIT-DNA. Due on due Goal PHQ-9. Due on du e Goal CT-Colonography. Due on due Goal Weight. Due on d ue Goal FIT. Due on due Goal Medication Recon ciliation. Due on due Goal Zoster vaccine ( 1st). Due on due Goal ALT (SGPT). Due on due Goal Order Annual PT. Due on due Goal OARS. Due on due Goal Creatinine. Due on due Goal POWER ELECTRONICS ENGINEER Paperwork. Due on due Goal AST (SGOT). Due on due Goal STICKER HAND Scanned. Due on due Goal UDT. Due on due Goal Tobacco Use. Due on 023 due Goal HPV. Due on due Goal Lipid panel. Due on 023 due Goal Hepatitis C scre ening. Due on due Goal Review Allergy L ist. Due on due Goal STICKER HAND Scanned. Due on 022 due Goal Order Annual PT. Due on due Goal ALT (SGPT). Due on due Goal OARS. Due on due Goal POWER ELECTRONICS ENGINEER Paperwork. Due on due Goal UDT. Due on due Goal AST (SGOT). Due on due Goal Creatinine. Due on due Goal FIT-DNA. Due on [...] Allergy L ist. Due on due Goal HPV. Due on due Goal FIT. Due on due Goal Lipid panel. Due on due Goal CT-Colonography. Due on due Goal Tobacco Use. Due on due Goal Creatinine. Due on due Goal STICKER HAND Scanned. Due on due Goal Order Annual PT. Due on due Goal UDT. Due on due Goal POWER ELECTRONICS ENGINEER Paperwork. Due on due Goal OARS. Due on due Goal AST (SGOT). Due on due Goal Hepatitis C scre ening. Due on due Goal Unhealthy drug u se screening. Due on due Goal ALT (SGPT). Due on due Goal FIT-DNA. Due on [...] Social Hi story. Due on due Goal STICKER HAND Scanned. Due on due Goal UDT. Due on due Goal Order Annual PT. Due on due Goal Creatinine. Due on due Goal ALT (SGPT). Due on due Goal AST (SGOT). Due on due Goal POWER ELECTRONICS ENGINEER Paperwork. Due on due Goal OARS. Due on due Goal Weight. Due on [...] C scre ening. Due on due Goal POWER ELECTRONICS ENGINEER Paperwork. Due on due Goal Lipid panel. [...] due Goal FIT. Due on due Goal STICKER HAND Scanned. Due on due Goal Zoster vaccine ( 1st). Due on due Goal Review Allergy L ist. Due on due Goal Creatinine. Due on due Goal AST (SGOT). Due on due Goal Creatinine. Due on due Goal STICKER HAND Scanned. Due on due Goal ALT (SGPT). Due on due Goal UDT. Due on due Goal PHQ-9. Due on du e Goal Tobacco Use. Due on due Goal OARS. Due on due Goal Order Annual PT. Due on due Goal Update Social Hi story. Due on due Goal POWER ELECTRONICS ENGINEER Paperwork. Due on due Goal Review Allergy [...] due Goal OARS. Due on due Goal POWER ELECTRONICS ENGINEER Paperwork. Due on due Goal Order Annual PT. Due on due Goal Height. Due on d ue Goal ALT (SGPT). Due on due Goal STICKER HAND Scanned. Due on due Goal Review Allergy L ist. Due on due Goal PHQ-9. Due on du e Goal PHQ-9. Due on du e Goal ALT (SGPT). Due on due Goal AST (SGOT). Due on due Goal OARS. Due on due Goal STICKER HAND Scanned. Due on due Goal Update Social Hi story. Due on due Goal Review Allergy L ist. Due on due Goal Medication Recon ciliation. Due on due Goal Tobacco Use. Due on due Goal POWER ELECTRONICS ENGINEER Paperwork. Due on due Goal Creatinine. Due on due Goal UDT. Due on due Goal Order Annual PT. Due on due Goal Height. Due on d ue Goal Weight. Due on d ue Goal STICKER HAND Scanned. Due on due Goal PHQ-9. Due on du e Goal Update Social Hi story. Due on due Goal OARS. Due on due Goal POWER ELECTRONICS ENGINEER Paperwork. Due on due Goal Review Allergy [...] ue Goal OARS. Due on due Goal Height. Due on d ue Goal POWER ELECTRONICS ENGINEER Paperwork. Due on due Goal Update Social [...] due Goal Creatinine. Due on due Goal STICKER HAND Scanned. Due on due Goal Weight. Due on d ue Goal PHQ-9. Due on du e Goal AST (SGOT). Due on due Goal Update Social Hi story. Due on due Goal Creatinine. Due on due Goal UDT. Due on due Goal OARS. Due on due Goal Height. Due on d ue Goal POWER ELECTRONICS ENGINEER Paperwork. Due on due Goal STICKER HAND Scanned. Due on due Goal Weight. Due on d ue Goal Medication Recon ciliation. Due on due Goal Tobacco Use. Due on due Goal ALT (SGPT). Due on due Goal Review Allergy L ist. Due on due Goal Order Annual PT. Due on due Goal Weight. Due on d ue Goal POWER ELECTRONICS ENGINEER Paperwork. Due on due Goal Review Allergy [...] Medication Recon ciliation. Due on due Goal STICKER HAND Scanned. Due on due Goal Height. Due on d ue Goal Creatinine. Due on due Goal AST (SGOT). Due on due Goal Tobacco Use. Due on due Goal Height. Due on d ue Goal UDT. Due on due Goal PHQ-9. Due on du e Goal Order Annual PT. Due on due Goal ALT (SGPT). Due on due Goal STICKER HAND Scanned. Due on due Goal POWER ELECTRONICS ENGINEER Paperwork. Due on due Goal Medication Recon ciliation. Due on due Goal Review Allergy L ist. Due on due Goal Weight. Due on d ue Goal OARS. Due on due Goal Update Social Hi story. Due on due Goal UDT. Due on due Goal Creatinine. Due on due Goal POWER ELECTRONICS ENGINEER Paperwork. Due on due Goal Height. Due on d ue Goal AST (SGOT). Due on due Goal Order Annual PT. Due on due Goal Review Allergy L ist. Due on due Goal OARS. Due on due Goal ALT (SGPT). Due on due Goal Update Social Hi story. Due on due Goal Tobacco Use. Due on due Goal Medication Recon ciliation. Due on due Goal STICKER HAND Scanned. Due on due Goal Weight. Due on d ue Goal PHQ-9. Due on du e Goal OARS. Due on due Goal UDT. Due on due Goal STICKER HAND Scanned. Due on due Goal Weight. Due on d ue Goal Review Allergy L ist. Due on due Goal Update Social Hi story. Due on due Goal PHQ-9. Due on du e Goal ALT (SGPT). Due on due Goal Tobacco Use. Due on due Goal Medication Recon ciliation. Due on due Goal POWER ELECTRONICS ENGINEER Paperwork. Due on due Goal AST (SGOT). Due on due Goal Creatinine. Due on due Goal Height. Due on d ue Goal Order Annual PT. Due on due Goal AST (SGOT). Due on due Goal UDT. Due on due Goal STICKER HAND Scanned. Due on due Goal Creatinine. Due on due Goal ALT (SGPT). Due on due Goal OARS. Due on due Goal POWER ELECTRONICS ENGINEER Paperwork. Due on due Goal Weight. Due on d ue Goal Order Annual PT. Due on due Goal PHQ-9. Due on du e Goal Tobacco Use. Due on due Goal Height. Due on d ue Goal Review Allergy L ist. Due on due Goal Update Social Hi story. Due on due Goal Medication Recon ciliation. Due on due Goal AST (SGOT). Due on due Goal Order Annual PT. Due on due Goal PHQ-9. Due on du e Goal Height. Due on d ue Goal Creatinine. Due on due Goal ALT (SGPT). Due on due Goal Medication Recon ciliation. Due on due Goal OARS. Due on due Goal Update Social Hi story. Due on due Goal STICKER HAND Scanned. Due on due Goal POWER ELECTRONICS ENGINEER Paperwork. Due on due Goal UDT. Due [...] Goal ALT (SGPT). Due on due Goal POWER ELECTRONICS ENGINEER Paperwork. Due on due Goal UDT. Due on due Goal OARS. Due on due Goal STICKER HAND Scanned. Due on due Goal Creatinine. Due on due Goal Height. Due on d ue Goal Weight. Due on d ue Goal Medication Recon ciliation. Due on due Goal PHQ-9. Due on du e Goal STICKER HAND Scanned. Due on due Goal Update Social Hi story. Due on due Goal Order Annual PT. Due on due Goal UDT. Due on due Goal OARS. Due on due Goal Tobacco Use. Due on due Goal Creatinine. Due on due Goal Review Allergy L ist. Due on due Goal POWER ELECTRONICS ENGINEER Paperwork. Due on due Goal ALT (SGPT). Due on due Goal AST (SGOT). Due on due Goal PHQ-9. Due on du e Goal Weight. Due on d ue Goal Medication Recon ciliation. Due on due Goal Height. Due on d ue Goal POWER ELECTRONICS ENGINEER Paperwork. Due on due Goal Tobacco Use. Due on due Goal Update Social Hi story. Due on due Goal Height. Due on d ue Goal Weight. Due on d ue Goal Creatinine. Due on due Goal STICKER HAND Scanned. Due on due Goal PHQ-9. Due [...] Social Hi story. Due on due Goal POWER ELECTRONICS ENGINEER Paperwork. Due on due Goal UDT. Due on due Goal ALT (SGPT). Due on due Goal Review Allergy L ist. Due on due Goal Tobacco Use. Due on due Goal STICKER HAND Scanned. Due on due Goal Medication Recon ciliation. [...] & Advanced Practice Nursing Providers : Physician Solar Sales Advisor (related to Other intervertebral disc degeneration, lumbar region) ordered Referral Ordered: Ava Driscoll -Physician Assistants & Advanced Practice Nursing Providers : Physician Solar Sales Advisor (related to Postlaminectomy syndrome, not elsewhere classified) ordered Referral Ordered: Ava Driscoll -Physician Assistants & Advanced Practice Nursing Providers : Physician Solar Sales Advisor (related to Other intervertebral disc degeneration, lumbar region) ordered Referral Ordered: Ava Driscoll -Physician Assistants & Advanced Practice Nursing Providers : Physician Solar Sales Advisor (related to Postlaminectomy syndrome, not elsewhere classified) ordered Referral Ordered: Ava Driscoll -Physician Assistants & Advanced Practice Nursing Providers : Physician Solar Sales Advisor (related to Radiculopathy, lumbar region) ordered Referral Referred To: Ava Driscoll
[address] [place], [phone] Ordered: Referrals: Physician Assistants & Advanced Practice Nursing Providers : Physician Solar Sales Advisor. Ava Driscoll ordered Appointment Marquita Albarado BOOKED [...] low back pain Severity level i s 7. Duration: chronic. The problem is worsening. It [...] benefit.Neck pain with radiation into the shoulders and down the arms continues to be the most bothersome. Notes the TPI completed on 09/02/22 with Noe Catherine PA-C provided moderate benefit. She states her doctor is still waiting on the anti-coagulation hold letter in order for her to hold Eliquis for 3 days for the MIHAI.Reports current medication regimen provides 70% pain relief and allows for increased functionality. Continues to utilize [place] 7.5-325mg with significant benefit. Denies OIC or [...] arms. She states she has increased her [place] 7.5-325mg to 3x/day due to the increased neck pain. Expressed interest in receiving repeat TPIs. Notes she is cleared by her doctor to hold Eliquis for 3 days after 09/16/22 for the MIHAI. New anti-coagulation hold generated . Needs to schedule PT consult Reports current medication regimen provides 70% pain relief and allows for increased functionality. Continues to utilize [place] 7.5-325mg with significant benefit. Denies OIC or [...] allows for increased functionality. Continues to utilize [place] 7.5-325mg with significant benefit. Denies OIC or [...] allows for increased functionality. Continues to utilize [place] 7.5-325mg with significant benefit. Denies OIC or [...] the recent pain. Inquires about meeting with [employer] for possible reprogramming. Of note, patient was recently fired from her job at [employer]. She is currently looking for a new job and have various interviews lined up. Reports current medication regimen provides 85% relief and allows for increased functionality. She states she typically takes [place] 7.5-325mg 1-2x/day or sometimes not at all [...] relieved by pain meds/drugs and rest. Comments: Zach capone presents for a virtual [...] factors. Symptoms are relieved by changing positions. low back pain Severity level [...] in trialing imodium. 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 Reports current medication regimen provides 75% pain relief and allows for increased functionality. She notes she is taking #2-3tabs [place] 7.5-325mg every day. Denies side effects from [...] that need to be answered on a [facility] letterhead. Reports current medication regimen provides 75% pain relief and allows for increased functionality. She notes she is taking #2-3tabs [place] 7.5-325mg every day. Denies side effects from [...] 55 y/o female, meeting with us via [employer] for virtual follow up and medication refill, [...] functionality. She notes she is taking #2-3tabs [place] 7.5-325mg every day. . Denies side effects from current medication regimen. low back pain (comments) Krzysztof viera is a 55 y/o female, meeting with us via [employer] for virtual follow up and medication refill in setting of chronic low back pain. She states her low back pain is stable this month. She would like to trial SCS once she reaches full-time status at her new job at [email or web address] but she would like to start the PA process at this time. She has completed her MRI at [facility] but missed her Psych VVShe states her neck pain is also worse this month.Reports current medication regimen provides 75% pain relief and allows for increased functionality. She notes she is taking #2-3tabs [place] 7.5-325mg every day. She reports she recently [...] full-time status at her new job at [email or web address] but she would like to start the PA process at this time. She states her neck pain is also worse this month and endorses difficulty swallowing. She states her previous neck surgery was done in [place](?)Reports current medication regimen provides 75% pain relief and allows for increased functionality. She notes she is taking #2-3tabs [place] 7.5-325mg every day. Denies side effects from [...] new job at [employer] at [employer].Reports current medication regimen provides 70% pain relief [...] viera is meeting with us today via [employer] Virtual Visit for follow up and medication refill. Low back pain persists this month, but medication does help to some extent. She feels her pain is well managed at this time. She complains of bilateral flank pain with laying down, advised her see pcp.She is taking a trip to [place], returning 12/30/20.Reports current medication regimen provides 75% pain relief and allows for increased functionality. Denies side effects from current medication regimen. Patient presents with #1 [place] (hydrocodone/acet) 7.5-325m - surplus. Pharmacy only gave [...] medication regimen.She is taking a trip to [place] returning 12/30/20No other concerns today. low back [...] meds/drugs, rest and sitting. low back pain Severity level i s 4. Duration: chronic. The problem is stable. It occurs persistently. Location of pain is lower back and neck.The patient describes the pain as an ache. Symptoms are aggravated by bending, lifting, sitting, twisting, movement and housework. Symptoms are relieved by pain meds/drugs. low back pain (comments) Krzysztof viera is meeting with us today via [employer] Virtual Visit for following up and medication [...] a new job after her vacation to [place] to visit family. She will return on 12/15/20. She plans on applying to desk positions that do not require physical activity that aggravates her back pain.Reports current medication regimen provides 75% pain relief and allows for increased functionality. Denies side effects from current medication regimen.No other concerns today. low back pain (comments) Krzysztof viera is here for a follow up to [place] paperwork. Low back pain persists this month, but medication does help to some extent. She feels her pain is moderately managed at this time. She recently quit her job at [employer] since she could not complete the assigned [...] 08/09/20 so far. 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 low back pain (comments) Patient here via VV for medication refill and follow up visit. 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 Duration: chronic. The problem is stable. It occurs persistently. Location of pain is lower back.The patient describes the pain as an ache. Symptoms are aggravated by movement. Symptoms are relieved by lying down. Neck Pain Duration: chroni c. The problem [...] rest and sitting. low back pain (comments) Tiffaniechrissy viera is meeting with us today via [facility] Virtual Visit for following up and medication refill. Low back pain persists this month, tolerable with medication. Reports great benefit with poop PT at [facility] and requests new order.Reports current medication regimen [...] relieved by pain meds/drugs. 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 She requests restrictions include breaks to [...] old. She follows up with Psychiatry at [facility]. low back pain Severity level i s 6. Duration: chronic. It occurs persistently. Location of pain is lower back and neck.The patient describes the pain as stabbing. Symptoms are aggravated by bending, changing positions, lying/rest, standing and twisting. Symptoms are relieved by sitting. Functional Status Date Functional Assessmen t No Information Instructions Date Instruction Additional Infor mation No Information Assessments Type Assessment Date No Information Patient Care Teams Name Effective Dates (start - stop) Status Members No Information
[2022-11-20] MEDS: MORPHINE 10 MG/ML inj IM (11:00)
[2022-11-20] MEDS: KETOROLAC 10 MG TABLET PO (11:00)
== END 2022-11-20 11:01 | disposition home or self-care (01) ==
LOC: ED 10:52
PROVIDERS: Emergency Provider Family Medicine; PCP Physician Assistant Medical
DX: S39.012A Strain of muscle, fascia and tendon of lower back, initial encounter (principal); M54.9 Dorsalgia, unspecified; G89.29 Other chronic pain
CPT/HCPCS: 96372; 99284; A9270; J2270

== ENCOUNTER 2022-12-20 13:00 | Emergency (ER) | payer MEDICAID, SELFPAY ==
[2022-12-20] VITALS (9 sets, daily range): BP systolic 100–103; BP diastolic 63–70; PULSE 72–81; RESP 16; TEMP 36.1; O2SAT 92–98; BMI 28.1
--- NOTE | 2022-12-20 13:45 | ED.GENADULT ---
HPI - General Adult General Chief complaint: Chest Pain Stated complaint: Chest pain, lightheaded Time Seen by Provider: 12/20/22 13:36 History of Present Illness HPI narrative: Sharp chest pain rating at 8/10 starting at 8 am. Light headed as well. No cardiac history. 57-year-old woman presenting to the emergency department with concern of some chest pain starting about 5 hours ago. Has been having some fluttering of her heart as well. Pain is lessened. But still present. Does not describe any exacerbating or relieving factors. She is not really short of breath. Has felt some lightheadedness as well. Does not have a history of any heart problems. Pain is maybe pleuritic. Does have a history of chronic back pain and a stimulator. Diagnosed with a DVT less than 3 months ago and has continued on Eliquis. Related Data Home Medications Medication Instructions Recorded Confirmed divalproex 500 mg tablet,extended 500 mg PO QDAY 05/14/22 05/14/22 release 24 hr gabapentin 300 mg capsule 600 mg PO QHS 05/14/22 05/14/22 hydrocodone 7.5 mg-acetaminophen tab PO QDAY PRN 05/14/22 05/14/22 325 mg tablet hydroxyzine HCl 25 mg tablet 25 mg PO QHS 05/14/22 05/14/22 lidocaine 5 % topical ointment 1 applic topical QHS PRN 05/14/22 05/14/22 lurasidone 80 mg tablet (Latuda) 80 mg PO QDAY 05/14/22 05/14/22 nitrofurantoin 100 mg PO DAILY 05/14/22 05/14/22 monohydrate/macrocrystals 100 mg capsule pantoprazole 40 mg tablet,delayed 40 mg PO QDAY 05/14/22 05/14/22 release sertraline 50 mg tablet 50 mg PO QDAY 05/14/22 05/14/22 tolterodine 2 mg capsule,extended 2 mg PO QDAY 05/14/22 05/14/22 release 24 hr topiramate 50 mg tablet 50 mg PO QDAY 05/14/22 05/14/22 trazodone 50 mg tablet 50 mg PO QHS PRN 05/14/22 05/14/22 Previous Rx's Medication Instructions Recorded apixaban 5 mg (74 tabs) tablets in 5 mg PO BID #74 ea 03/15/22 a dose pack (Eliquis DVT-PE Treat 30D Start) cyclobenzaprine 10 mg tablet 10 mg PO TID #15 tabs 09/13/22 lorazepam 0.5 mg tablet (Ativan) 0.5 mg PO TID PRN #7 tabs 10/09/22 Allergies Allergy/AdvReac Type Severity Reaction Status Date / Time sulfamethoxazole Allergy Verified 05/14/22 14:29 [From Bactrim] trimethoprim [From Bactrim] Allergy Verified 05/14/22 14:29 Review of Systems Status of ROS: Reports: 6 or more systems reviewed and unremarkable except as noted in History and below [facility] Medical History No significant past medical history Surgical History H/O neck surgery ?Z98.890 - Other specified postprocedural states (ICD-10) H/O tubal ligation ?Z98.51 - Tubal ligation status (ICD-10) H/O rotator cuff surgery ?Z98.890 - Other specified postprocedural states (ICD-10) H/O: hysterectomy ?Z90.710 - Acquired absence of both cervix and uterus (ICD-10) Social History Smoking Status: Current every day smoker What tobacco products do you use: cigarettes How often do you have a drink containing alcohol: monthly or less AUDIT-C Alcohol total score: 1 Non-prescribed substance use: denies use service: No Exam Narrative: Exam Narrative: Pleasant. Seems concerned, a little anxious. Breathing easily. Moving all extremities without difficulty. Well-perfused peripherally. Very trace lower extremity edema. Lungs appear to be clear. Is sore to palpation particular in the periscapular trapezial musculature. Sore also to palpation over the upper left chest. Skin is warm and dry without rash. Heart in a regular rate and rhythm. Const: Vital Signs, click to edit/add: Vital Signs - 24 hr 12/20/22 13:09 12/20/22 13:29 12/20/22 13:30 Temperature 96.9 F L Pulse Rate 80 80 Pulse Rate [Left P ulse Oximeter] 81 Respiratory Rate 16 Blood Pressure 103/68 Blood Pressure [Ri ght Upper Arm] 102/70 Pulse Oximetry 95 92 94 Oxygen Delivery Me thod Room Air 12/20/22 13:31 12/20/22 13:45 12/20/22 14:00 Temperature Pulse Rate 80 81 76 Pulse Rate [Left P ulse Oximeter] Respiratory Rate Blood Pressure 100/63 Blood Pressure [Ri ght Upper Arm] Pulse Oximetry 92 94 96 Oxygen Delivery Me thod 12/20/22 14:01 12/20/22 14:15 12/20/22 14:30 Temperature Pulse Rate 74 75 72 Pulse Rate [Left P ulse Oximeter] Respiratory Rate Blood Pressure 103/69 Blood Pressure [Ri ght Upper Arm] Pulse Oximetry 96 96 98 Oxygen Delivery Me thod Documenting provider has reviewed patient's vital signs: yes Course Vital Signs Vital signs: Initial Vital Signs Temperature 96.9 F L 12/20/22 13:09 Temperature Source Temporal Artery Scan 12/20/22 13:09 Pulse Rate 81 12/20/22 13:09 Pulse Rhythm Regular 12/20/22 13:09 Respiratory Rate 16 12/20/22 13:09 Blood Pressure 102/70 12/20/22 13:09 Blood Pressure Mean 80 12/20/22 13:09 Blood Pressure Position Sitting 12/20/22 13:09 Pulse Oximetry 95 12/20/22 13:09 Oxygen Delivery Method Room Air 12/20/22 13:09 Vital Signs Temperature 96.9 F L 12/20/22 13:09 Pulse Rate 81 12/20/22 13:09 Respiratory Rate 16 12/20/22 13:09 Blood Pressure 102/70 12/20/22 13:09 Pulse Oximetry 95 12/20/22 13:09 Oxygen Delivery Method Room Air 12/20/22 13:09 Temperature 96.9 F L 12/20/22 13:09 Pulse Rate 72 12/20/22 14:30 Respiratory Rate 16 12/20/22 13:09 Blood Pressure 103/69 12/20/22 14:01 Pulse Oximetry 98 12/20/22 14:30 Oxygen Delivery Method Room Air 12/20/22 13:09 Medical Decision Making MDM Narrative Medical decision making narrative: In spite of reproducibility suggesting more chest wall/musculoskeletal etiology can monitor for some time here looking for these arrhythmia. I think this is distinct though to the discomfort that she is having currently. Is already anticoagulated though will look for evidence of pulmonary embolus, pneumothorax, cardiac ischemic event. Monitored without event in the emergency department. Given a dose of ketorolac; I think this 1 time dosing will not affect anticoagulation status excessively. Also given normal saline. Overall improved during time in the ER. Labs and monitoring is reassuring. See patient discharge plan Lab Data Lab results reviewed: Yes I reviewed the patient's lab results Labs: Lab Results 12/20/22 12/20/22 Range/Units 14:21 14:30 D-Dimer Quant (PE/DVT) 0.31 (0.00-0.50) ug/ml Sodium 138 (135-149) mmol/L Potassium 4.0 (3.6-5.1) mmol/L Chloride 103 (96-114) mmol/L Carbon Dioxide 28 (20-32) mmol/L BUN 16 (7-30) mg/dL Creatinine 1.2 (0.5-1.5) mg/dL Estimated Creat Clear 47.66 Estimated GFR 53 ml/min Glucose 103 (60-115) mg/dL Calcium 9.1 (8.4-10.6) mg/dL Magnesium 1.8 (1.5-2.6) mg/dL Troponin I < 0.01 L (0.01-0.04) ng/mL C-Reactive Protein 1.5 H (0.5-1.0) mg/dL NT-Pro-B Natriuret Pep 168 pg/mL POC Troponin I 0.00 L (0.01-0.04) ng/ml ECG Data Attestation: I personally reviewed and interpreted this ECG as follows: (Normal sinus rhythm rate of 86. Has baseline irritability as if some muscular tension.) Discharge Plan Discharge Clinical Impression: Chest wall pain, Atypical chest pain Patient Disposition: Home w/ Parent or Adult Condition: Improved Instructions: Chest Pain (ED) Additional Instructions: See handout on stretches/strengthening for the upper back that I think would be helpful. Maybe with a little bit of food take up to 500 mg naproxen 2 times daily over the next 5 days. If these intermittent palpitations, for lack of better word, continue to occur, please follow-up in primary care to consider further evaluation. Prescriptions: No Action hydrocodone-acetaminophen 7.5-325 mg tablet PO QDAY PRN trazodone 50 mg tablet 50 mg PO QHS PRN Patient Comments: TAKE ONE-HALF TO THREE TABLETS (25-150 MG) BY MOUTH AT BEDTIME IF NEEDED FOR SLEEP. sertraline 50 mg tablet 50 mg PO QDAY Patient Comments: TAKE ONE TABLET BY MOUTH DAILY gabapentin 300 mg capsule 600 mg PO QHS nitrofurantoin monohyd/m-cryst 100 mg capsule 100 mg PO DAILY topiramate 50 mg tablet 50 mg PO QDAY hydroxyzine HCl 25 mg tablet 25 mg PO QHS Patient Comments: TAKE 1 TO 2 TABLETS (25-50MG) BY MOUTH AT BEDTIME divalproex 500 mg tablet extended release 24 hr 500 mg PO QDAY pantoprazole 40 mg tablet,delayed release (DR/EC) 40 mg PO QDAY tolterodine 2 mg capsule,extended release 24hr 2 mg PO QDAY Patient Comments: TAKE 1 CAPSULE (2 MG) BY MOUTH ONCE DAILY. Latuda 80 mg tablet 80 mg PO QDAY Patient Comments: TAKE ONE TABLET (80MG) BY MOUTH ONCE DAILY WITH DINNER lidocaine 5 % ointment 1 applic topical QHS PRN Patient Comments: APPLY BY TOPICAL ROUTE 1 - 3 TIMES EVERY DAY TO AFFECTED AREA(S) NEEDED NEEDED FOR NERVE PAIN cyclobenzaprine 10 mg tablet 10 mg PO TID Qty: 15 0RF Eliquis DVT-PE Treat 30D Start 5 mg (74 tabs) tablets,dose pack 5 mg PO BID Qty: 74 0RF lorazepam [Ativan] 0.5 mg tablet 0.5 mg PO TID PRNQty: 7 0RF Follow Up/Referrals: Ava Chirinos PA-C [Primary Care Provider] - Stand Alone Forms: [facility] Info Instructions
--- OUTSIDE RECORDS SUMMARY | 2022-12-20 14:42 | XMS_ITS | Continuity of Care Document ---
Author Name Unknown Organization [facility] enter Address [address] [place] [id number] Phone Care Team Providers Care Manager Human Resources Name Role Phone [facility] Unavailable Unava ilable Procedures Procedure Date INTERLAMINAR [...] Diagnoses Date Provider Providers Copied on Encounter [facility], [address] [place] [address], [id number], [place] tel:[phone] [facility] No Information [facility]. [address] [place] [address], [id number], [place]. tel:[phone] Referring Provider: Sherri Nick, [address] [facility] [place], [address] . tel:[phone] [facility], [address] [place] [address], [id number], tel:[phone] [facility] No Information 2 [facility]. [address] [place] [address], [id number], . tel:[phone] Referring Provider: Wallace RajputKenandy N [facility] [address], [place], [address]. tel:[phone] [facility], [address] [place] [address], [id number], tel:[phone] [facility] No Information 2 [facility]. [address] [place] [address], [id number], . tel:[phone] Referring Provider: Wallace RajputKenandy N [facility] [address], [place], [address]. tel:[phone] [facility], [address] [place] [address], [id number], tel:[phone] [facility] No Information [facility]. [address] [place] [address], [id number], . tel:[phone] Referring Provider: Wallace RajputKenandy N [facility] [address], [place], [address]. tel:[phone] Family History Family Member Type Diagnosis Age At Onset No Information Payers Payer name Insurance type Covered alliance party ID Chaunceyabdullahi tinaana(s) [facility] [id number] Social History Type Description Quantity Date Captured [...]
--- OUTSIDE RECORDS SUMMARY | 2022-12-20 14:42 | XMS_ITS | Continuity of Care Document ---
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 Name Role Phone Neil Pruett Unavailable Unavailable Allergies, Adverse Reactions, Alerts Substance [...] 200 MG - Active Procedures Procedure Date OFFICE VISIT, EST TELEMEDICINE No Charge For Visit Per Prov INTERLAMINAR CRV OR THRC OFFICE VISIT, EST TELEMEDICINE INJ TRIGGER POINT, 1/2 MUSCL Kenalog Triamcinolone [...] Diagnoses Date Provider Providers Copied on Encounter OFFICE VISIT, EST TELEMEDICINE [facility], [address] [facility] [place], [id number] , [place] tel:[phone] [facility] [place] low back pain (chief complaint) DepressionChronic pain syndromeRadiculop athy, cervical regionRadiculopat hy, lumbar regionFibromyalgi aPostlaminectomy syndrome, not elsewhere classifiedLong term (current) use of opiate analgesic 3 Dorene Trejo. [address] [facility] [address], [place], [id number] , [place]. tel:[phone] [facility], [address] [facility] [place], [id number] , [place] tel:[phone] [facility] [place] low back pain (chief complaint) Chronic pain syndromeDepressio nRadiculopathy, cervical regionRadiculopat hy, lumbar regionFibromyalgi aPostlaminectomy syndrome, not elsewhere classifiedLong term (current) use of opiate analgesic 3 Marybel Small. [address] [facility] [address], [place], [id number] , [place]. tel:[phone] Referring Provider: Ferny Rider [address] [place] [address], [address]. tel:[phone] [facility], [address] [place] [address], [id number] , [place] [phone] [facility] Radiculopathy, cervical region Alireza- 3 Park Polanco. [address] [place] [address], [id number] , [place]. tel:[phone] Referring Provider: Ferny Rider, [address] [place] [address], [address]. [phone] OFFICE VISIT, EST TELEMEDICINE [facility], [address] [place] [address], [id number] , [place] tel:[phone] [facility] low back pain (chief complaint) DepressionChronic pain syndromeRadiculop athy, cervical regionRadiculopat hy, lumbar regionFibromyalgi aPostlaminectomy syndrome, not elsewhere classifiedLong term (current) use of opiate analgesic 3 Nygianni Jones. [address], [place], [place], [id number] , [place]. tel:[phone] [facility], [address] [place] [address], [id number] , [place] tel:[phone] [facility] [place] Myalgia, other site 3 Catherine Neil. [address], [place], [place], [id number] , [place]. tel:[phone] Referring Provider: Ferny Rider, [address] [place] [address], [address]. [phone] OFFICE VISIT, EST TELEMEDICINE [facility], [address] [place] [address], [id number] , [place] tel:[phone] [facility] low back pain (chief complaint) DepressionChronic pain syndromeRadiculop athy, cervical regionRadiculopat hy, lumbar regionFibromyalgi aPostlaminectomy syndrome, not elsewhere classifiedLong term (current) use of opiate analgesic Aug- 3 Lissaongesa Jones. [address], [place], [id number] , [place]. tel: [phone] [facility], [address] [facility] [place], [id number] , [place] tel: [phone] [facility] [place] No Information 3 Jerrod Jones. [address], [place], [id number] , [place]. tel: [phone] OFFICE/OUTPAT IENT VISIT, [facility], [address] [place], [place], [id number] , [place] tel: [phone] [facility] low back pain (chief complaint) DepressionChronic pain syndromeRadiculop athy, lumbar regionFibromyalgi aPostlaminectomy syndrome, not elsewhere classifiedLong term (current) use of opiate analgesicRadiculo henny, cervical region 3 Jerrod Jones. [address], [place], [id number] , [place]. tel:[phone] Referring Provider: Ferny Rider, [address] [place] [address], [address]. tel:[phone] OFFICE VISIT, [facility], [address] [place] [address], [id number] , [place] tel: [phone] [facility] low back pain (chief complaint) DepressionChronic pain syndromeOther intervertebral disc degeneration, lumbar regionRadiculopat hy, lumbar regionFibromyalgi aPostlaminectomy syndrome, not elsewhere classifiedLong term (current) use of opiate analgesic Apr- 2 Jerrod Jones. [address], [place], [id number] , [place]. tel:[phone] Referring Provider: Ferny Rider, [address] [place] [address], [address]. [phone] OFFICE/OUTPAT IENT VISIT, EST [facility], [address] [place] [address], [id number] , [place] tel: [phone] [facility] low back pain (chief complaint) Radiculopathy, lumbar regionMyalgia, other site Sep- 2 Dorene Trejo. [address], [place], [place], [id number] , [place]. tel: [phone] [facility], [address] [place] [address], [id number] , [place] tel: [phone] [facility] No Information Sep-2 2 Arpan Isaacs. [address] [place] [address], [id number] , [place]. tel:[phone] Referring Provider: Ferny Rider, [address] [place] [address], [address]. [phone] OFFICE/OUTPAT IENT VISIT, [facility], [address] [place] [address], [id number] , [place] tel: [phone] [facility] low back pain (chief complaint) DepressionChronic pain syndromeOther intervertebral disc degeneration, lumbar regionRadiculopat hy, lumbar regionFibromyalgi aPostlaminectomy syndrome, not elsewhere classifiedLong term (current) use of opiate analgesicEncounte r for screening for other disorderEncounter for therapeutic drug level monitoring Feb- 2 Jerrod Jones. [address] [facility] [address], [place], [place], [id number] , [place]. tel:[phone] Referring Provider: Ferny Rider, [address] [place] [address], [address]. [phone] OFFICE VISIT, EST TELEMEDICINE [facility], [address] [place] [address], [id number] , [place] tel:[phone] [facility] low back pain (chief complaint) DepressionChronic pain syndromeOther intervertebral disc degeneration, lumbar regionRadiculopat hy, lumbar regionFibromyalgi aPostlaminectomy syndrome, not elsewhere classifiedLong term (current) use of opiate analgesic Sep- 2 Jerrod Jones. [address], [place], [place], [id number] , [place]. tel: [phone] Referring Provider: Ferny Rider, [address] [place] [address], [address]. tel:[phone] OFFICE VISIT, EST TELEMEDICINE [facility], [address] [place] [address], [id number] , [place] tel: [phone] [facility] low back pain (chief complaint) Radiculopathy, lumbar regionOther intervertebral disc degeneration, lumbar regionLong term (current) use of opiate analgesicDepressi onChronic pain syndromeFibromyal giaPostlaminectom y syndrome, not elsewhere classified 2 Catherinegaurav Trejo. [address], [place], [place], [id number] , [place]. tel: [phone] [facility], [address] [place] [address], [id number] , [place] tel: [phone] [facility] Radiculopathy, lumbar region 2 Jerrod Jones. [address], [place], [place], [id number] , [place]. tel: [phone] Referring Provider: Fenry Rider, [address] [place] [address], [address]. tel:[phone] [facility], [address] [place] [address], [id number] , [place] tel: [phone] [facility] Radiculopathy, lumbar region 2 Regulo Gonsalez. [facility], [address] [facility], [place], [address], [place]. tel:[phone] Referring Provider: Ferny Rider, [address] [place] [address], [address]. tel:[phone] OFFICE VISIT, EST TELEMEDICINE [facility], [address] [place] [address], [id number] , [place] [phone] [facility] low back pain (chief complaint) Radiculopathy, lumbar regionOther intervertebral disc degeneration, lumbar regionLong term (current) use of opiate analgesicDepressi onChronic pain syndromeFibromyal giaPostlaminectom y syndrome, not elsewhere classifiedTobacco use disorder, moderate Fe-0 2 Lissaongesa Karen. [address] [facility] [address], [place], [place], [id number] , [place]. [phone] Referring Provider: Ava Chirinos, [address] , [place], [address]. tel:[phone] [facility], [address] [place] [address], [id number] , [place] [phone] [facility] Other intervertebral disc degeneration, lumbar regionRadiculopat hy, lumbar region 2 [place] Karen. [address] [facility] [address], [place], [place], [id number] , [place]. [phone] Referring Provider: Ferny Rider, [address] [place] [address], [address]. tel:[phone] [facility], [address] [place] [address], [id number] , [place] [phone] [facility] No Information 2 Jerrod Jones. [id number] [place] [address] [address], [place], [place], [id number] , [place]. [phone] Referring Provider: Ferny Rider, [address] [place] [address], [address]. tel:[phone] [facility], [address] [place] [address], [id number] , [place] [phone] [facility] Radiculopathy, lumbar region 2 Regulo Gonsalez. [facility], [address], [place], [address], [place]. tel: [phone] Referring Provider: Ferny Rider, [address] [place] [address], [address]. 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 [address] [facility] [address], [place], [place], [id number] , [place]. tel: [phone] Referring Provider: Ferny Rider, [address] [place] [address], [address]. tel:[phone] [facility], [address] [place] [address], [id number] , [place] tel: [phone] [facility] No Information 1 Jerrod Jones. [address] [facility] [address], [place], [place], [id number] , [place]. tel: [phone] Psych Dx Eval [facility], [address] [place] [address], [id number] , [place] tel: [phone] [facility] Pain disorder with related psychological factorsBipolar disorder 1 Yvonne Beltran. [address] [place] [address], [id number] , [place]. 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 [address] [facility] [address], [place], [id number] , [place]. tel:[phone] [facility], [address] [place] [address] [place], [id number] , [place] tel: [phone] [facility] No Information 1 Arpan Isaacs. [address] [place] [address], [id number] , [place]. 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 [address] [facility] [address], [place], [id number] , [place]. tel:[phone] Referring Provider: Ferny Rider, [address] [place] [address], [address]. [phone] [facility], [address] [place] [address] [place], [id number] , [place] tel: [phone] [facility] [place] No Information 1 Jerrod Jones. [address] [facility] [address], [place], [id number] , [place]. 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 [address] [facility] [address], [place], [id number] , [place]. tel:[phone] Referring Provider: Ferny Rider, [address] [place] [address], [address]. [phone] OFFICE VISIT, [facility] TELEMEDICINE [facility], [address] [place] [address], [id number] , [place] tel:[phone] [facility] low back pain (chief complaint) Chronic pain syndromeOther intervertebral disc degeneration, lumbar regionFibromyalgi aPostlaminectomy syndrome, not elsewhere classifiedLong term (current) use of opiate analgesicDepressi on 1 Nyongesa Karen. [address] [facility] [address] [facility] [address], [place], [id number] , [place]. tel:[phone] Referring Provider: Ferny Rider, [address] [place] [address], [address]. tel:[phone] OFFICE VISIT, [facility], [address] [place] [address], [id number] , [place] tel:[phone] [facility] low back pain (chief complaint) Chronic pain syndromeOther intervertebral disc degeneration, lumbar regionFibromyalgi aPostlaminectomy syndrome, not elsewhere classifiedLong term (current) use of opiate analgesicDepressi onTobacco use disorder, moderate 1 Nyongesa Karen. [address] [facility] [address], [place], [id number] , [place]. tel:[phone] Referring Provider: Ferny Rider, [address] [place] [address], [address]. tel:[phone] [facility], [address] [place] [address], [id number] , [place] tel:[phone] [facility] No Information 1 Nyongesa Karen. [address] [facility] [address], [place], [id number] , [place]. tel:[phone] OFFICE/OUTPAT IENT VISIT, [facility], [address] [place] [address], [id number] , [place] tel:[phone] [facility] low back pain (chief complaint) Chronic pain syndromeOther intervertebral disc degeneration, lumbar regionFibromyalgi aPostlaminectomy syndrome, not elsewhere classifiedLong term (current) use of opiate analgesicDepressi onTobacco use disorder, moderateRadiculop athy, lumbar regionEncounter for therapeutic drug level monitoring 1 Nyongesa Karen. [address], [place], [place], [id number] , [place]. [phone] Referring Provider: Ferny Rider, [address] [place] [address], [address]. tel:[phone] OFFICE VISIT, [facility], [address] [place] [address], [id number] , [place] [phone] [facility] low back pain (chief complaint) Chronic pain syndromeOther intervertebral disc degeneration, lumbar regionFibromyalgi aPostlaminectomy syndrome, not elsewhere classifiedLong term (current) use of opiate analgesicDepressi onTobacco use disorder, moderateRadiculop athy, lumbar region 1 Nyongesa Karen. [address] [facility] [address], [place], [place], [id number] , [place]. [phone] Referring Provider: Ferny Rider, [address] [place] [address], [address]. tel:[phone] OFFICE/OUTPAT IENT VISIT, [facility], [address] [place] [address], [id number] , [place] [phone] [facility] low back pain (chief complaint) Chronic pain syndromeOther intervertebral disc degeneration, lumbar regionFibromyalgi aPostlaminectomy syndrome, not elsewhere classifiedLong term (current) use of opiate analgesicDepressi onTobacco use disorder, moderateRadiculop athy, lumbar region Aug- 1 Nyongesa Karen. [address], [place], [place], [id number] , [place]. [phone] Referring Provider: Ferny Rider, [address] [place] [address], [address]. [phone] OFFICE VISIT, EST TELEMEDICINE [facility], [address] [place] [address], [id number] , [place] [phone] [facility] low back pain (chief complaint) Chronic pain syndromeOther intervertebral disc degeneration, lumbar regionFibromyalgi aPostlaminectomy syndrome, not elsewhere classifiedLong term (current) use of opiate analgesicDepressi onTobacco use disorder, moderateRadiculop athy, lumbar region Aug- 6-202 1 Jerrod Jones. [address], [place], [place], [id number] , [place]. [phone] Referring Provider: Ferny Rider, [address] [place] [address], [address]. [phone] [facility], [address] [place] [address], [id number] , [place] tel:[phone] [facility] No Information Aug- 0- 1 Rashmi Karen. [address], [place], [place], [id number] , [place]. [phone] Referring Provider: Ferny Rider, [address] [place] [address], [address]. [phone] [facility], [address] [place] [address], [id number] , [place] [phone] [facility] Radiculopathy, lumbar region Mar-0 3-202 1 Rajputgaurav Solomonis. [facility], [address], [place], [address], [place]. tel:[phone] Referring Provider: Ferny Rider, [address] [place] [address], [address]. [phone] OFFICE VISIT, EST TELEMEDICINE [facility], [address] [place] [address], [id number] , [place] tel:[phone] [facility] [place] low back pain (chief complaint) Chronic pain syndromeOther intervertebral disc degeneration, lumbar regionFibromyalgi aPostlaminectomy syndrome, not elsewhere classifiedLong term (current) use of opiate analgesicDepressi onTobacco use disorder, moderateRadiculop athy, lumbar region 1 Nyongesa Karen. [address], [place], [id number] , [place]. [phone] Referring Provider: Ferny Rider, [address] [place] [address], [address]. tel:[phone] [facility], [address] [place] [address], [id number] , [place] [phone] [facility] No Information 1 Nyongesa Karen. [address] [facility] [address], [place], [id number] , [place]. [phone] Referring Provider: Ferny Rider, [address] [place] [address], [address]. tel:[phone] OFFICE VISIT, EST TELEMEDICINE [facility], [address] [place] [address], [id number] , [place] [phone] [facility] low back pain (chief complaint) Chronic pain syndromeOther intervertebral disc degeneration, lumbar regionFibromyalgi aPostlaminectomy syndrome, not elsewhere classifiedLong term (current) use of opiate analgesicDepressi onTobacco use disorder, moderateEncounter for therapeutic drug level monitoring 1 Nyongesa Karen. [address], [place], [id number] , [place]. [phone] Referring Provider: Ferny Rider, [address] [place] [address], [address]. tel:[phone] OFFICE VISIT, EST TELEMEDICINE [facility], [address] [place] [address], [id number] , [place] [phone] [facility] low back pain (chief complaint) Chronic pain syndromeOther intervertebral disc degeneration, lumbar regionFibromyalgi aPostlaminectomy syndrome, not elsewhere classifiedLong term (current) use of opiate analgesicDepressi onTobacco use disorder, moderate Dec-0 8-202 0 Nyongesa Karen. [address] [facility] [address], [place], [place], [id number] , [place]. tel: [phone] Referring Provider: Ferny Rider, [address] [place] [address], [address]. tel:[phone] OFFICE VISIT, EST TELEMEDICINE [facility], [address] [place] [address], [id number] , [place] tel: [phone] [facility] low back pain (chief complaint) Chronic pain syndromeOther intervertebral disc degeneration, lumbar regionFibromyalgi aPostlaminectomy syndrome, not elsewhere classifiedLong term (current) use of opiate analgesicDepressi onTobacco use disorder, moderate Nov-1 0-202 0 Nyongesa Karen. [address], [place], [place], [id number] , [place]. tel: [phone] Referring Provider: Ferny Rider, [address] [place] [address], [address]. tel:[phone] OFFICE VISIT, EST TELEMEDICINE [facility], [address] [place] [address], [id number] , [place] tel: [phone] [facility] low back pain (chief complaint) Neck Pain (chief complaint) Chronic pain syndromeOther intervertebral disc degeneration, lumbar regionFibromyalgi aPostlaminectomy syndrome, not elsewhere classifiedLong term (current) use of opiate analgesicDepressi onTobacco use disorder, moderate Oct-0 6-202 0 Nyongesa Karen. [address], [place], [place], [id number] , [place]. tel: [phone] Referring Provider: Ferny Rider, [address] [place] [address], [address]. tel:[phone] OFFICE VISIT, EST TELEMEDICINE [facility], [address] [place] [address], [id number] , [place] tel:[phone] [facility] low back pain (chief complaint) Chronic pain syndromeOther intervertebral disc degeneration, lumbar regionFibromyalgi aPostlaminectomy syndrome, not elsewhere classifiedLong term (current) use of opiate analgesicDepressi onTobacco use disorder, moderate Sep-0 1-202 0 Nyongesa Karen. [address] [facility] [address], [place], [place], [id number] , [place]. tel:[phone] Referring Provider: Ferny Rider, [address] [place] [address], [address]. [phone] OFFICE/OUTPAT IENT VISIT, [facility], [address] [place] [address], [id number] , [place] tel:[phone] [facility] low back pain (chief complaint) Chronic pain syndromeOther intervertebral disc degeneration, lumbar regionFibromyalgi aPostlaminectomy syndrome, not elsewhere classifiedLong term (current) use of opiate analgesicDepressi onTobacco use disorder, moderate Aug-1 0-202 0 Nyongesa Karen. [address] [address] [address], [place], [id number] , [place]. [phone] Referring Provider: Ferny Rider, [address] [place] [address], [address]. [phone] OFFICE/OUTPAT IENT VISIT, [facility], [address] [place] [address], [id number] , [place] [phone] [facility] low back pain (chief complaint) Chronic pain syndromeOther intervertebral disc degeneration, lumbar regionFibromyalgi aPostlaminectomy syndrome, not elsewhere classifiedDepress ionTobacco use disorder, moderateLong term (current) use of opiate analgesic Navin-2 8-202 0 Nyongesa Karen. [address] [facility] [address], [place], [id number] , [place]. tel:[phone] Referring Provider: Ferny Rider, [address] [place], [address]. tel:[phone] OFFICE/OUTPAT IENT VISIT, NEW [facility], [address] [place], [place], [id number] , [place] tel:[phone] [facility] [place] low back pain (chief complaint) Chronic pain syndromeOther intervertebral disc degeneration, lumbar regionFibromyalgi aPostlaminectomy syndrome, not elsewhere classifiedEncount er for therapeutic drug level monitoringDepress ionTobacco use disorder, moderate 0 Jerrod Jones. [address], [place], [place], [id number] , [place]. tel:[phone] Referring Provider: Viktor Weir [address], [place], [address]. tel:[phone] Family History Family Member Type Diagnosis Age At Onset No Information Payers Payer name Insurance type Covered libertarian ID Guera chavez(s) [facility] [id number] Social History Type Description Quantity Date Captured Comments Alcohol Use Details Unknown Caffeine Use Details Unknown Tobacco Use Status Smoking Status No Information Sex Female Chief Complaint And Reason For Visit From encounter dated '11/29/2022 14:00'. low back pain (chief complaint). Description: Severity level is 7. Duration: chronic. The problem is stable. Reason For Referral Reason For Referral No Information Plan Of Treatment Date Type Action Status Goal AST (SGOT). Due on due Goal PLATE SETTER Paperwork. Due on due Goal OARS. Due on due Goal Order Annual PT. Due on due Goal UDT. Due on due Goal Update Social Hi story. Due on due Goal Weight. Due on d ue Goal PHQ-9. Due on du e Goal Height. Due on d ue Goal Tobacco Use. Due on due Goal Creatinine. Due on due Goal LABORATORY SAMPLE CARRIER Scanned. Due on due Goal ALT (SGPT). Due on due Goal Hepatitis C scre ening. Due on due Goal Review Allergy L ist. Due on due Goal FIT-DNA. Due on due Goal CT-Colonography. Due on due Goal HPV. Due on due Goal Lipid panel. Due on due Goal Medication Recon ciliation. Due on due Goal Unhealthy drug u se screening. Due on due Goal FIT. Due on due Goal Zoster vaccine ( 1st). Due on due Goal LABORATORY SAMPLE CARRIER Scanned. Due on due Goal Order Annual PT. Due on due Goal PLATE SETTER Paperwork. Due on due Goal OARS. Due on due Goal Creatinine. Due on due Goal AST (SGOT). Due on due Goal UDT. Due on due Goal FIT. Due on due Goal ALT (SGPT). Due on due Goal Weight. Due on d ue Goal Unhealthy drug u se screening. Due on due Goal Lipid panel. Due on due Goal Height. Due on d ue Goal CT-Colonography. Due on due Goal HPV. Due on due Goal FIT-DNA. Due on due Goal Medication Recon ciliation. Due on due Goal Review Allergy L ist. Due on due Goal Update Social Hi story. Due on due Goal Tobacco Use. Due on due Goal Zoster vaccine ( 1st). Due on due Goal Hepatitis C scre ening. Due on due Goal PHQ-9. Due on du e Goal PLATE SETTER Paperwork. Due on due Goal Creatinine. Due on due Goal AST (SGOT). Due on due Goal ALT (SGPT). Due on due Goal OARS. Due on due Goal UDT. Due on due Goal LABORATORY SAMPLE CARRIER Scanned. Due on due Goal Order Annual PT. Due on due Goal Medication Recon ciliation. Due on due Goal Tobacco Use. Due on due Goal Lipid panel. Due on 023 due Goal Zoster vaccine ( 1st). Due on due Goal CT-Colonography. Due on due Goal Update Social Hi story. Due on due Goal HPV. Due on due Goal FIT-DNA. Due on due Goal Hepatitis C scre ening. Due on due Goal Unhealthy drug u se screening. Due on due Goal Weight. Due on d ue Goal Review Allergy L ist. Due on due Goal FIT. Due on due Goal PHQ-9. Due on du e Goal Height. Due on d ue Goal Creatinine. Due on due Goal Medication Recon ciliation. Due on due Goal PHQ-9. Due on du e Goal ALT (SGPT). Due on due Goal LABORATORY SAMPLE CARRIER Scanned. Due on due Goal UDT. Due on due Goal Order Annual PT. Due on due Goal OARS. Due on due Goal PLATE SETTER Paperwork. Due on due Goal AST (SGOT). [...] Social Hi story. Due on due Goal FIT-DNA. Due on [...] Allergy L ist. Due on due Goal Hepatitis C scre ening. Due on due Goal CT-Colonography. Due on due Goal Medication Recon ciliation. Due on due Goal Height. Due on d ue Goal Order Annual PT. Due on due Goal OARS. Due on due Goal PLATE SETTER Paperwork. Due on due Goal Creatinine. Due on due Goal LABORATORY SAMPLE CARRIER Scanned. Due on due Goal UDT. Due on due Goal Lipid panel. Due on due Goal OARS. Due on due Goal PLATE SETTER Paperwork. Due on due Goal UDT. Due [...] Medication Recon ciliation. Due on due Goal LABORATORY SAMPLE CARRIER Scanned. Due on due Goal Order Annual [...] due Goal CT-Colonography. Due on due Goal Order Annual PT. Due on due Goal ALT (SGPT). Due on due Goal OARS. Due on due Goal PLATE SETTER Paperwork. Due on due Goal UDT. Due on due Goal AST (SGOT). Due on due Goal Creatinine. Due on due Goal LABORATORY SAMPLE CARRIER Scanned. Due on due Goal Tobacco Use. Due on due Goal FIT-DNA. Due on due Goal Update Social Hi story. Due on due Goal Weight. Due on d ue Goal Height. Due on d ue Goal Zoster vaccine ( 1st). Due on due Goal Lipid panel. Due on [address]-Colonography. Due on due Goal HPV. Due on due Goal FIT. Due on due Goal Review Allergy L ist. Due on due Goal Unhealthy drug u se screening. Due on due Goal Medication Recon ciliation. Due on due Goal PHQ-9. Due on du e Goal Hepatitis C scre ening. Due on due Goal Order Annual PT. Due on due Goal ALT (SGPT). Due on due Goal Creatinine. Due on due Goal UDT. Due on due Goal LABORATORY SAMPLE CARRIER Scanned. Due on 022 due Goal OARS. Due on due Goal AST (SGOT). Due on due Goal PLATE SETTER Paperwork. Due on due Goal Review Allergy [...] due Goal HPV. Due on due Goal PLATE SETTER Paperwork. Due on due Goal Hepatitis C scre ening. Due on due Goal OARS. Due on due Goal UDT. Due on due Goal Unhealthy drug u se screening. Due on due Goal Creatinine. Due on due Goal ALT (SGPT). Due on due Goal AST (SGOT). Due on due Goal FIT. Due on due Goal Weight. Due on d ue Goal Medication Recon ciliation. Due on due Goal HPV. Due on due Goal Review Allergy L ist. Due on due Goal Lipid panel. Due on due Goal CT-Colonography. Due on due Goal Zoster vaccine ( 1st). Due on due Goal FIT-DNA. Due on due Goal Tobacco Use. Due on due Goal Update Social Hi story. Due on due Goal PHQ-9. Due on du e Goal Height. Due on d ue Goal LABORATORY SAMPLE CARRIER Scanned. Due on due Goal Order Annual PT. Due on due Goal Creatinine. Due on due Goal LABORATORY SAMPLE CARRIER Scanned. Due on due Goal AST (SGOT). Due on due Goal Order Annual PT. Due on due Goal ALT (SGPT). Due on due Goal OARS. Due on due Goal UDT. Due on due Goal PLATE SETTER Paperwork. Due on due Goal PHQ-9. Due on du e Goal HPV. Due on due Goal Review [...] due Goal Creatinine. Due on due Goal PLATE SETTER Paperwork. Due on due Goal LABORATORY SAMPLE CARRIER Scanned. Due on due Goal ALT (SGPT). Due on due Goal OARS. Due on due Goal Order Annual PT. Due on due Goal PLATE SETTER Paperwork. Due on due Goal AST (SGOT). Due on due Goal Order Annual PT. Due on due Goal Update Social Hi story. Due on due Goal Review Allergy L ist. Due on due Goal Tobacco Use. Due on due Goal PHQ-9. Due on du e Goal UDT. Due on due Goal ALT (SGPT). Due on due Goal LABORATORY SAMPLE CARRIER Scanned. Due on due Goal OARS. Due [...] Goal Weight. Due on d ue Goal LABORATORY SAMPLE CARRIER Scanned. Due on due Goal OARS. Due on due Goal Creatinine. Due on due Goal PLATE SETTER Paperwork. Due on due Goal UDT. Due on due Goal Creatinine. Due on due Goal PLATE SETTER Paperwork. Due on due Goal UDT. Due on due Goal ALT (SGPT). Due on due Goal LABORATORY SAMPLE CARRIER Scanned. Due on due Goal OARS. Due [...] Goal Weight. Due on d ue Goal PLATE SETTER Paperwork. Due on due Goal UDT. Due on due Goal ALT (SGPT). Due on due Goal LABORATORY SAMPLE CARRIER Scanned. Due on due Goal OARS. Due on due Goal UDT. Due on due Goal Height. Due on d ue Goal ALT (SGPT). Due on due Goal LABORATORY SAMPLE CARRIER Scanned. Due on due Goal OARS. Due on due Goal AST (SGOT). Due on due Goal Order Annual PT. Due on due Goal Update Social Hi story. Due on due Goal Review Allergy L ist. Due on due Goal Tobacco Use. Due on due Goal PHQ-9. Due on du e Goal Medication Recon ciliation. Due on due Goal Creatinine. Due on due Goal PLATE SETTER Paperwork. Due on due Goal Weight. Due on d ue Goal Creatinine. Due on due Goal PLATE SETTER Paperwork. Due on due Goal UDT. Due on due Goal ALT (SGPT). Due on due Goal LABORATORY SAMPLE CARRIER Scanned. Due on due Goal OARS. Due [...] due Goal Creatinine. Due on due Goal PLATE SETTER Paperwork. Due on due Goal UDT. Due on due Goal ALT (SGPT). Due on due Goal LABORATORY SAMPLE CARRIER Scanned. Due on due Goal OARS. Due on due Goal Weight. Due on d ue Goal Creatinine. Due on due Goal PLATE SETTER Paperwork. Due on due Goal UDT. Due on due Goal ALT (SGPT). Due on due Goal LABORATORY SAMPLE CARRIER Scanned. Due on due Goal OARS. Due [...] ue Goal Creatinine. Due on due Goal PLATE SETTER Paperwork. Due on due Goal UDT. Due on due Goal ALT (SGPT). Due on due Goal LABORATORY SAMPLE CARRIER Scanned. Due on due Goal OARS. Due [...] ue Goal Creatinine. Due on due Goal PLATE SETTER Paperwork. Due on due Goal UDT. Due on due Goal ALT (SGPT). Due on due Goal LABORATORY SAMPLE CARRIER Scanned. Due on due Goal OARS. Due [...] due Goal Creatinine. Due on due Goal PLATE SETTER Paperwork. Due on due Goal UDT. Due on due Goal ALT (SGPT). Due on due Goal LABORATORY SAMPLE CARRIER Scanned. Due on due Goal OARS. Due [...] ue Goal Creatinine. Due on due Goal PLATE SETTER Paperwork. Due on due Goal UDT. Due on due Goal ALT (SGPT). Due on due Goal LABORATORY SAMPLE CARRIER Scanned. Due on due Goal OARS. Due [...] ue Goal OARS. Due on due Goal AST (SGOT). Due on due Goal Order Annual PT. Due on due Goal Update Social Hi story. Due on due Goal Review Allergy L ist. Due on due Goal Tobacco Use. Due on due Goal Creatinine. Due on due Goal PLATE SETTER Paperwork. Due on due Goal UDT. Due on due Goal ALT (SGPT). Due on due Goal LABORATORY SAMPLE CARRIER Scanned. Due on due Goal PHQ-9. Due [...] due Goal Creatinine. Due on due Goal PLATE SETTER Paperwork. Due on due Goal UDT. Due on due Goal ALT (SGPT). Due on due Goal LABORATORY SAMPLE CARRIER Scanned. Due on due Goal PHQ-9. Due [...] ue Goal Creatinine. Due on due Goal PLATE SETTER Paperwork. Due on due Goal UDT. Due on due Goal ALT (SGPT). Due on due Goal LABORATORY SAMPLE CARRIER Scanned. Due on due Goal OARS. Due on due Goal AST (SGOT). Due on due Goal Weight. Due on d ue Goal Order Annual PT. Due on due Goal Update Social Hi story. Due on due Goal Update Social Hi story. Due on due Goal Review Allergy L ist. Due on due Goal Tobacco Use. Due on due Goal PHQ-9. Due on du e Goal Medication Recon ciliation. Due on due Goal Height. Due on d ue Goal Weight. Due on d ue Goal Creatinine. Due on due Goal PLATE SETTER Paperwork. Due on due Goal UDT. Due on due Goal ALT (SGPT). Due on due Goal LABORATORY SAMPLE CARRIER Scanned. Due on due Goal OARS. Due on due Goal AST (SGOT). Due on due Goal Order Annual PT. Due on due Goal Tobacco cessation counseling completed Goal Tobacco cessation counseling completed Referral Ordered: Ava DriscollPhysician Assistants & Advanced Practice Nursing Providers : Physician Disease Education Specialist (related to Other intervertebral disc degeneration, lumbar region) ordered Referral Ordered: Ava Driscoll -Physician Assistants & Advanced Practice Nursing Providers : Physician Disease Education Specialist (related to Postlaminectomy syndrome, not elsewhere classified) ordered Referral Ordered: Ava Driscoll -Physician Assistants & Advanced Practice Nursing Providers : Physician Disease Education Specialist (related to Other intervertebral disc degeneration, lumbar region) ordered Referral Ordered: Ava Driscoll -Physician Assistants & Advanced Practice Nursing Providers : Physician Disease Education Specialist (related to Postlaminectomy syndrome, not elsewhere classified) ordered Referral Ordered: Ava Driscoll -Physician Assistants & Advanced Practice Nursing Providers : Physician Disease Education Specialist (related to Radiculopathy, lumbar region) ordered Referral Referred To: Ava Driscoll [facility]
[address] [place], [phone] Ordered: Referrals: Physician Assistants & Advanced Practice Nursing Providers : Physician . Ava Driscoll ordered Appointment Marquita Albarado BOOKED Future Order: Radiology Order X- Ray Cervical Spine 3 Views Or Less (XCER3), Ordered on: Ordered Future Order: Radiology Order MR I Cervical Spine W/O Dye (MRICERWO), Ordered on: Ordered Future Order: Radiology Order MR I Lumbar Spine W/O Dye (MRILSWO), Ordered on: Ordered History Of Present Illness Encounter Date Complaint History Of Prese nt Illness Comments: Zach capone is a 57 y/o female who presents via [facility] for virtual follow up and medication refill in the setting of chronic low back pain. Pain has been stable since NEETU and is primarily located in her neck. Patient is routinely managed by Karen Nyongesa, DNP.Neck pain with radiation into the shoulders and down the arms continues to be the most bothersome. S/p C7-T1 IESI on 11/14/22 reports minimal lasting relief. Reports that current pain is location right below C5-C6 fusion site. Patient interested in trying RFW and would like to discuss further at NOV. Reports current medication regimen provides 70% pain relief and allows for increased functionality. Continues to utilize Upper Tract 7.5-325mg with significant benefit. Denies OIC or other side effects from current medication regimen. No other concerns today. low back pain Severity level i s 7. Duration: chronic. The problem is stable. low back pain Duration: chroni c. Comments: Zach capone is a 56 y/o female who presents via [email or web address] for virtual follow up and medication refill [...] allows for increased functionality. Continues to utilize Upper Tract 7.5-325mg with significant benefit. Denies OIC or other side effects from current medication regimen. No other concerns today. low back pain Severity level i s 7. Duration: chronic. The problem is worsening. It occurs persistently. Symptoms are relieved by pain meds/drugs. low back pain Severity level i s 8. Duration: chronic. The problem is worsening. It occurs persistently. Symptoms are relieved by pain meds/drugs. Comments: Zach capone is a 56 y/o female who presents via [email or web address] for virtual follow up and medication refill in the setting of chronic low back pain. Pain has been worse this month. Denies any new symptoms or changes. Continues to use the Medtronic SCS with benefit.Neck pain with radiation into the shoulders has been the most bothersome. Denies any radiation down to the arms. She states she has increased her Upper Tract 7.5-325mg to 3x/day due to the increased neck pain. Expressed interest in receiving repeat TPIs. Notes she is cleared by her doctor to hold Eliquis for 3 days after 09/16/22 for the MIHAI. New anti-coagulation hold generated . Needs to schedule PT consult Reports current medication regimen provides 70% pain relief and allows for increased functionality. Continues to utilize Upper Tract 7.5-325mg with significant benefit. Denies OIC or [...] allows for increased functionality. Continues to utilize Upper Tract 7.5-325mg with significant benefit. Denies OIC or [...] allows for increased functionality. Continues to utilize Upper Tract 7.5-325mg with significant benefit. Denies OIC or [...] back pain surrounding SCS battery. Karon from [employer] met with her for the reprogramming. Patient [...] was recently fired from her job at [employer]. She is currently looking for a new job and have various interviews lined up. Reports current medication regimen provides 85% relief and allows for increased functionality. She states she typically takes Upper Tract 7.5-325mg 1-2x/day or sometimes not at all [...] relieved by changing positions. low back pain (comments) Krzysztof [...] in trialing imodium. Additionally, she inquires if 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 Reports current medication regimen provides 75% pain relief and allows for increased functionality. She notes she is taking #2-3tabs Upper Tract 7.5-325mg every day. Denies side effects from [...] that need to be answered on a [facility] letterhead. Reports current medication regimen provides 75% pain relief and allows for increased functionality. She notes she is taking #2-3tabs Upper Tract 7.5-325mg every day. Denies side effects from [...] 55 y/o female, meeting with us via [email or web address] for virtual follow up and medication refill, [...] functionality. She notes she is taking #2-3tabs Upper Tract 7.5-325mg every day. . Denies side effects [...] 55 y/o female, meeting with us via [email or web address] for virtual follow up and medication refill in setting of chronic low back pain. She states her low back pain is stable this month. She would like to trial SCS once she reaches full-time status at her new job at [employer] but she would like to start the PA process at this time. She has completed her MRI at [facility] but missed her Psych VVShe states her neck pain is also worse this month.Reports current medication regimen provides 75% pain relief and allows for increased functionality. She notes she is taking #2-3tabs Upper Tract 7.5-325mg every day. She reports she recently [...] full-time status at her new job at [employer] but she would like to start the PA process at this time. She states her neck pain is also worse this month and endorses difficulty swallowing. She states her previous neck surgery was done in [place](?)Reports current medication regimen provides 75% pain relief and allows for increased functionality. She notes she is taking #2-3tabs Upper Tract 7.5-325mg every day. Denies side effects from [...] She got a new job at [employer] center at [employer].Reports current medication regimen provides 70% pain relief [...] see pcp.She is taking a trip to [place], returning 12/30/20.Reports current medication regimen provides 75% pain relief and allows for increased functionality. Denies side effects from current medication regimen. Patient presents with #1 Upper Tract (hydrocodone/acet) 7.5-325m - surplus. Pharmacy only gave her 7 days supply instead of 30/day supply.No other concerns today. low back pain Severity [...] medication regimen.She is taking a trip to [place] returning 12/30/20No other concerns today. low back [...] viera is meeting with us today via [email or web address] Virtual Visit for following up and medication [...] a new job after her vacation to [place] to visit family. She will return on 12/15/20. She plans on applying to desk positions that do not require physical activity that aggravates her back pain.Reports current medication regimen provides 75% pain relief and allows for increased functionality. Denies side effects from current medication regimen.No other concerns today. low back pain (comments) Krzysztof viera is here for a follow up to fill out [place] unemployment [place] paperwork. Low back pain persists this month, but medication does help to some extent. She feels her pain is moderately managed at this time. She recently quit her job at [employer] since she could not complete the assigned [...] 08/09/20 so far. 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 Denies side effects from current medication regimen.No other concerns today. low back pain (comments) Krzysztof viera is meeting with us today via [employer] Visit for following up and medication refill. [...] viera is meeting with us today via [employer] Visit for following up and medication refill. 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 She would like an excuse letter to not wipe tables or limit the number of tables she can wipes. Hydrocodone helps pain, 75% pain relief . Denies SE from medication including constipation. She stopped going to pool therapy, [facility] has not receive the order to continue [...] viera is meeting with us today via [email or web address] Virtual Visit for following up and medication refill. Low back pain persists this month, tolerable with medication. Reports great benefit with poop PT at [facility] and requests new order.Reports current medication regimen provides 50% pain relief and allows for increased functionality. Denies side effects from current medication regimen.No other concerns today. Neck Pain Duration: chroni c. The problem has not changed. Pertinent negatives include bladder incontinence. 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 She requests restrictions include breaks to sit.Neck pain persists as well.No other concerns today. low back pain Severity level i s 6. Duration: chronic. It occurs persistently. Location of pain is lower back and neck.The patient describes the pain as stabbing. Symptoms are aggravated by bending, changing positions, lying/rest, standing and twisting. Symptoms are relieved by sitting. low back pain (comments) Krzysztof ivera is here for an initial consult and [...] old. She follows up with Psychiatry at [facility]. Functional Status Date Functional Assessmen t No Information Instructions Date Instruction Additional Infor mation No Information Assessments Type Assessment Date assessment Depression impression Hx of depression wit h suicidal attempt and hospitalization when she was 19 years old. She follows up with Psychiatry at [facility]. Currently managed on esta assessment Chronic pain syndrome 3 impression Marquita is a 57 y/o female here for chronic neck pain with radiation in the R shoulder and low back pain. Hx of C5-C6 fusion. Pain have progressively worsened over the past several years.Have tried PT and medications with partial relief assessment Radiculopathy, cervical region J impression Ongoing neck pain wi th radiation into the R shoulder. Endorses weakness in the hands with frequent dropping of objects.S/p C7-T1 IESI on 11/14/22 reports minimal lasting relief.Cervical MRI on 05/14/21CONCLUSION:1. Postsurgical changes of C5-6 ACDF with mature bony bridging along the interspace in no MRI visualized complication. 2. Scattered cervical spondylosis without high-grade spinal canal stenosis neural foraminal stenosis or impingement of neural structures assessment Radiculopathy, lumbar region Nov impression Ongoing low back jenni n with radiation into the BLE. S/p Medtronic Intellis SCS implant on 07/24/[address] Wallace Sandoval continues to provide significant benefit.Previous BL L5-S1 TFESI provided 50% relief.Lumbar MRI on 05/14/21CONCLUSION:1. At L2-3, a left foraminal disc protrusion contacts/minimally impinges the left L2 nerve root. Stable. The subarticular component is reduced size. 2. At the L3-4, a left foraminal disc protrusion mildly impinges the left L3 nerve root. Stable. 3. At L4-5, broad-based central to left subarticular disc protrusion impinges the traversing left L5 nerve root. Slowly increased in size. 4. Additional scattered spondylosis without impingement of neural structures assessment Fibromyalgia impression Widespread pain r/t fibromyalgia assessment Postlaminectomy syndrome, not el sewhere classified impression Hx of C5-C6 fusionPr evious evaluation by Dr. Luis at [facility] had deemed her as not an appropriate candidate for surgery assessment nursing home (current) use of opiat e analgesic impression The medication provi jaylen 70% pain relief, does not cause significant side effects, increases the patient's daily activity level, and the patient presents with a surplus of the prescribed medications today.MME is 22.5mg/day. Patient has been managing medications appropriately, and is not confused or oversedated during our office visit. MNPMP queried and shows no outside opioid prescriptions. UDT results from 07/24/22 consistent with current medication regimen. Appropriate to continue with opioid therapy Mental Status Date Cognitive Assessment Normal Orientation Patient Care Teams Name Effective Dates (start - stop) Status Members No Information
--- OUTSIDE RECORDS SUMMARY | 2022-12-20 14:42 | XMS_ITS | Continuity of Care Document ---
Author Name Unknown Organization [facility] Address [address] [place] [address] Care Team Providers Care [employer] Crew Boss Name Role Phone Navneet Urena CRNA Unavailable Unavailable Procedures Procedure Date Percutaneous Image guided injection, dra kaur, or ANESTH, HEAD/NECK/PTRUNK Percutaneous Image guided neuromodulatio n or intra Advance Directives Directive Yes / No Effective Date File Name No Information Encounters Encounter Description Practice Location Reason(s) For Visit Diagnoses Date Provider Providers Copied on Encounter [facility], [address] [place], [place], [id number], [facility] No Information 3 Romel Toth. [address] [place], [place], [id number] , . tel:[phone] Referring Provider: Sherri Nick, [address] [place], [address] . tel:[phone] [facility], [address] [place], [place], [id number], [facility] No Information 2 Romel Toth. [address] [place], [place], [id number] , . [phone] Referring Provider: Wallace Rajput, [address] [facility] [address], [place], [address]. tel:[phone] [facility], [address] [place], [place], [id number], [facility] No Information 2 Valente Rasmussen. [address], [facility] [place], [place], [place], [id number] , . [phone] Referring Provider: Wallace Rajput [address], [place], [address]. tel:[phone] Family History Family Member Type Diagnosis Age At Onset No Information Payers Payer name Insurance type Covered constitution party ID Authoryisel chavez(s) [facility] [id number] Social History Type Description Quantity Date Captured [...]
[2022-12-20] MEDS: 0.9 % SODIUM CHLORIDE 1000 ml 1,000 ML IV (14:49)
[2022-12-20 14:59] LABS: Chloride* 103 mmol/L (96-114)
[2022-12-20 15:00] LABS: Sodium* 138 mmol/L (135-149)
[2022-12-20 15:02] LABS: Creatinine* 1.2 mg/dL (0.5-1.5); Est. Creatinine Clearance* 47.66; Estimated Glomerular Filt Rate 53 ml/min
[2022-12-20 15:03] LABS: Blood Urea Nitrogen* 16 mg/dL (7-30); Carbon Dioxide* 28 mmol/L (20-32); Glucose* 103 mg/dL (60-115)
[2022-12-20 15:04] LABS: Calcium* 9.1 mg/dL (8.4-10.6); Magnesium* 1.8 mg/dL (1.5-2.6)
[2022-12-20 15:06] LABS: C Reactive Protein* 1.5 mg/dL (0.5-1.0)
[2022-12-20 15:12] LABS: D Dimer Quantitative* 0.31 ug/ml (0.00-0.50)
[2022-12-20 15:19] LABS: NT Pro B Type NatriureticPept* 168 pg/mL; Troponin I* < 0.01 ng/mL (0.01-0.04)
[2022-12-20] MEDS: KETOROLAC 30 MG/ML inj IVP (15:33)
== END 2022-12-20 15:52 | disposition home or self-care (01) ==
PROVIDERS: Emergency Provider Family Medicine; PCP Physician Assistant Medical
DX: R07.89 Other chest pain (principal)
CPT/HCPCS: 36415; 80048; 83735; 83880; 84484; 85379; 86140; 93005; 96374; 99284; J1885; J7030

== ENCOUNTER 2023-03-07 19:34 | Emergency (ER) | payer MEDICAID, SELFPAY ==
[2023-03-07 19:39] VITALS: BP 128/72; PULSE 88; RESP 16; TEMP 36.6; O2SAT 99; BMI 28.3
--- NOTE | 2023-03-07 20:27 | ED.GENADULT ---
HPI - General Adult General Chief complaint: Constipation Stated complaint: Hasn't used the bathroom for 3 weeks Time Seen by Provider: 03/07/23 20:01 History of Present Illness HPI narrative: 57-year-old female presents the emergency department reporting 3 week history of constipation. No vomiting, no fever. Has some lower abdominal cramping. She tried taking a single dose of Ex-Lax 2 hours ago. She has not tried any other interventions in the 3 weeks that she has not yet had a large bowel movement. No blood in her stools. No dysuria. No trauma. She does have a history of prior abdominal surgeries with a prior and hysterectomy, uncomplicated. She is still eating, no complications with this. Reports diffuse lower abdominal pain. Reports her past medical history is notable for recurrent blood clots, mental health issues and chronic back pain. We review her medications and they do seem accurate as listed. Nonsmoker, denies illicit drug use or alcohol. She does use 2 Moss tablets every day, ongoing. ROS is notable for the GI symptoms as above. Denies gynecological, urinary, generalized or other complaints times 12 systems Related Data Home Medications Medication Instructions Recorded Confirmed divalproex 500 mg tablet,extended 500 mg PO QDAY 05/14/22 05/14/22 release 24 hr gabapentin 300 mg capsule 600 mg PO QHS 05/14/22 03/07/23 hydrocodone 7.5 mg-acetaminophen tab PO QDAY PRN 05/14/22 05/14/22 325 mg tablet hydroxyzine HCl 25 mg tablet 25 mg PO QHS 05/14/22 03/07/23 lidocaine 5 % topical ointment 1 applic topical QHS PRN 05/14/22 05/14/22 lurasidone 80 mg tablet (Latuda) 80 mg PO QDAY 05/14/22 05/14/22 nitrofurantoin 100 mg PO DAILY 05/14/22 03/07/23 monohydrate/macrocrystals 100 mg capsule pantoprazole 40 mg tablet,delayed 40 mg PO QDAY 05/14/22 03/07/23 release sertraline 50 mg tablet 50 mg PO QDAY 05/14/22 03/07/23 tolterodine 2 mg capsule,extended 2 mg PO QDAY 05/14/22 03/07/23 release 24 hr topiramate 50 mg tablet 50 mg PO QDAY 05/14/22 03/07/23 trazodone 50 mg tablet 50 mg PO QHS PRN 05/14/22 03/07/23 Previous Rx's Medication Instructions Recorded apixaban 5 mg (74 tabs) tablets in 5 mg PO BID #74 ea 03/15/22 a dose pack (Eliquis DVT-PE Treat 30D Start) cyclobenzaprine 10 mg tablet 10 mg PO TID #15 tabs 09/13/22 lorazepam 0.5 mg tablet (Ativan) 0.5 mg PO TID PRN #7 tabs 10/09/22 Allergies Allergy/AdvReac Type Severity Reaction Status Date / Time sulfamethoxazole Allergy Verified 03/07/23 19:39 [From Bactrim] trimethoprim [From Bactrim] Allergy Verified 03/07/23 19:39 [facility] Medical History No significant past medical history Surgical History H/O neck surgery ?Z98.890 - Other specified postprocedural states (ICD-10) H/O tubal ligation ?Z98.51 - Tubal ligation status (ICD-10) H/O rotator cuff surgery ?Z98.890 - Other specified postprocedural states (ICD-10) H/O: hysterectomy ?Z90.710 - Acquired absence of both cervix and uterus (ICD-10) Social History Smoking Status: Current every day smoker What tobacco products do you use: cigarettes How often do you have a drink containing alcohol: monthly or less AUDIT-C Alcohol total score: 1 Non-prescribed substance use: denies use service: No Exam Const: Vital Signs, click to edit/add: Vital Signs - 24 hr 03/07/23 19:39 Temperature 97.8 F Pulse Rate [Pulse Oximeter] 88 Respiratory Rate 16 Blood Pressure [Ri ght Upper Arm] 128/72 Pulse Oximetry 99 Documenting provider has reviewed patient's vital signs: yes Common normals: no apparent distress General appearance: cooperative, comfortable and well kempt HENMT: Common normals: normocephalic and head/scalp atraumatic Head and scalp: normocephalic and atraumatic Face and sinus: normal facial exam Mouth: oral and palatal mucosa normal Throat: posterior oropharynx normal Eye: Common normals: conjunctivae normal General eye: normal appearance of both eyes Conjunctiva: conjunctiva(e) normal Neck & C-Spine: Common normals: no lymphadenopathy General: normal visual inspection Resp: Common normals: normal respiratory effort, no use of accessory muscles and clear to auscultation bilaterally Effort & inspection: able to speak in complete sentences Auscultation: clear to auscultation bilaterally Cardio: Common normals: regular rate, regular rhythm, S1 normal heart sound and S2 normal heart sound Rate: regular rate Rhythm: regular rhythm Heart sounds: S1 normal and S2 normal GI: Other: Abdomen is mildly distended. Normoactive bowel sounds in upper quadrants. She is diffusely mildly tender to the lower abdomen, concentrating on the left. No mass. No hepatosplenomegaly. : Other: Rectal exam showing normal external rectum and anal mucosa. It internal exam showing formed stool in the rectal vault but not overly hard. No significant rectocele or hard fecal impaction. No blood. Extremity: Common normals: normal to inspection and normal capillary refill Psych: Appearance: well kempt Attitude: engaged Activity/motor behavior: appropriate eye contact Mood and affect: euthymic mood Insight: fair Judgement: fair Skin: Common normals: no rashes or lesions noted General skin exam: no rashes or lesions noted Course Course ED Course: Stable vital signs with no fever, no signs of obstruction. Do not recommend further medical workup. There are no signs of significant fecal impaction that would warrant enema or manual disimpaction. Patient does use chronic narcotics, therefore I think the medical management will be better for her as she can titrate this to meet her long-term needs as well. She will be given 17 g of MiraLax p.o. x1 and 2 senna tablets. She will repeat this regimen every 8 hours until her bowels move very soft. This may take up to 6 doses, she verbalizes understanding and agreement of this. She is to drink plenty of fluid and contact her primary care team if she is not getting relief after 48 hours. She may stop the regimen once her bowels move very loose. She is instructed to continue taking either a dose of MiraLax or senna every other day on a long-term basis to help prevent constipation. Vital Signs Vital signs: Initial Vital Signs Temperature 97.8 F 03/07/23 19:39 Temperature Source Temporal Artery Scan 03/07/23 19:39 Pulse Rate 88 03/07/23 19:39 Pulse Rhythm Regular 03/07/23 19:39 Respiratory Rate 16 03/07/23 19:39 Blood Pressure 128/72 03/07/23 19:39 Blood Pressure Mean 90 03/07/23 19:39 Blood Pressure Position Standing 03/07/23 19:39 Pulse Oximetry 99 03/07/23 19:39 Vital Signs Temperature 97.8 F 03/07/23 19:39 Pulse Rate 88 03/07/23 19:39 Respiratory Rate 16 03/07/23 19:39 Blood Pressure 128/72 03/07/23 19:39 Pulse Oximetry 99 03/07/23 19:39 Temperature 97.8 F 03/07/23 19:39 Pulse Rate 88 03/07/23 19:39 Respiratory Rate 16 03/07/23 19:39 Blood Pressure 128/72 03/07/23 19:39 Pulse Oximetry 99 03/07/23 19:39 Discharge Plan Discharge Clinical Impression: Constipation Patient Disposition: Home, Self-Care Condition: Stable Instructions: Constipation (DC) Additional Instructions: As we discussed, you do have mild constipation but no signs of obstruction, infection or fecal impaction. This is good news. Unfortunately people that use chronic pain medications can be very prone to constipation so it is important that in addition to a short-term plan to relieve her constipation, that you also make a plan for long-term management. In the short term. I am prescribing a combination of stimulant and osmotic laxatives. Your given tonight's dose here in the emergency department. You will need to grape picker additional doses to take tomorrow. You may refer to this instruction sheet in the future if you get constipated again. You will take 2 senna tablets and 17 g of MiraLax which is 1 dosed capful every 8 hours until your bowels move very loose. This may take up to 6 doses. You may stop once your stools are very loose. Drink lots of water to help move things through. I would recommend that you mix your morning dose of MiraLax in with your morning coffee. If after 48 hours, you are not getting any relief, I would make an appointment with primary care doctor to further discuss. Since you do take 2 Moss tablets every day, I would recommend that you either use MiraLax every other day or take 1 senna tablet every other night to help balance your bowels. You may increase the MiraLax or senna to meet your needs. Remember that if you start running high fevers over 100.4, have persistent vomiting and or large amounts of continuous rectal bleeding, you should come to the emergency department. Activity Level: Activity as Tolerated Discharge Diet: Regular Prescriptions: No Action hydrocodone-acetaminophen 7.5-325 mg tablet PO QDAY PRN trazodone 50 mg tablet 50 mg PO QHS PRN Patient Comments: TAKE ONE-HALF TO THREE TABLETS (25-150 MG) BY MOUTH AT BEDTIME IF NEEDED FOR SLEEP. sertraline 50 mg tablet 50 mg PO QDAY Patient Comments: TAKE ONE TABLET BY MOUTH DAILY gabapentin 300 mg capsule 600 mg PO QHS nitrofurantoin monohyd/m-cryst 100 mg capsule 100 mg PO DAILY topiramate 50 mg tablet 50 mg PO QDAY hydroxyzine HCl 25 mg tablet 25 mg PO QHS Patient Comments: TAKE 1 TO 2 TABLETS (25-50MG) BY MOUTH AT BEDTIME divalproex 500 mg tablet extended release 24 hr 500 mg PO QDAY pantoprazole 40 mg tablet,delayed release (DR/EC) 40 mg PO QDAY tolterodine 2 mg capsule,extended release 24hr 2 mg PO QDAY Patient Comments: TAKE 1 CAPSULE (2 MG) BY MOUTH ONCE DAILY. Latuda 80 mg tablet 80 mg PO QDAY Patient Comments: TAKE ONE TABLET (80MG) BY MOUTH ONCE DAILY WITH DINNER lidocaine 5 % ointment 1 applic topical QHS PRN Patient Comments: APPLY BY TOPICAL ROUTE 1 - 3 TIMES EVERY DAY TO AFFECTED AREA(S) NEEDED NEEDED FOR NERVE PAIN cyclobenzaprine 10 mg tablet 10 mg PO TID Qty: 15 0RF Eliquis DVT-PE Treat 30D Start 5 mg (74 tabs) tablets,dose pack 5 mg PO BID Qty: 74 0RF lorazepam [Ativan] 0.5 mg tablet 0.5 mg PO TID PRNQty: 7 0RF Follow Up/Referrals: Ava Chirinos PA-C [Primary Care Provider] - Stand Alone Forms: [facility] Info Instructions
--- OUTSIDE RECORDS SUMMARY | 2023-03-07 20:30 | XMS_ITS | Continuity of Care Document ---
Author Name Unknown Organization [facility] enter Address [address] [place] [address] [address] [place] [address] Phone Care Team Providers Care Facility Mechanic Name Role Phone [facility] Unavailable Unava ilable Procedures Procedure Date RF Cerv/Thor 2nd Level LEFT RF Cerv/Thor 3rd Level LEFT RF Cerv/Thor Single Level LEFT Facet Jt Inj Cervical/Thoracic LEFT Facet Jt Inj Cerv/Thor 2nd Level LEFT Se Facet Jt Inj Cerv/Thor 2nd Level LEFT Au Facet Jt Inj Cervical/Thoracic LEFT INTERLAMINAR CRV OR THRC INTERLAMINAR CRV OR [...] Diagnoses Date Provider Providers Copied on Encounter [facility], [address] [facility] [address], [place], [place], [id number], [place] tel:[phone] [place] [address] No Information Feb-2 3 [facility]. [address] [place] [address], [id number], . tel:[phone] Referring Provider: Sherri Nick, [address] [facility], [address] . tel:[phone] [place] [address], [address] [place] [address], [id number], tel:[phone] [place] [address] No Information 0 3 [facility]. [address] [place] [address], [id number], [place]. tel:[phone] Referring Provider: Sherri Nick, [address] [place], [address] . tel:[phone] [place] [address], [address] [place] [address], [id number], tel:[phone] [place] [address] No Information 3 [facility]. [address] [place] [address], [id number], [place]. tel:[phone] Referring Provider: Sherri Nick, [address] [facility], [place], [address] . tel:[phone] [facility], [address] [place] [address], [id number], tel:[phone] [place] [address] No Information 0 3 [facility]. [address] [place] [address], [id number], [place]. tel:[phone] Referring Provider: Sherri Nick, [address] [facility], [address] . tel:[phone] [place] [address], [address] [place] [address], [id number], [place] tel:[phone] [facility] No Information 2 [facility]. [address] [place] [address], [id number], . tel:[phone] Referring Provider: Wallace Rajput [employer] [address] [facility] [address] [facility] [address], [address]. tel:[phone] [facility], [address] [place] [address], [id number], tel:[phone] [place] [address] No Information 2 [facility]. [address] [place] [address], [id number], . tel:[phone] Referring Provider: Wallace Rajput [employer] [address] [facility] [address] [facility] [address], [address]. tel:[phone] [facility], [address] [place] [address], [id number], tel:[phone] [place] [address] No Information 1 [facility]. [address] [place] [address], [id number], . tel:[phone] Referring Provider: Wallace Rajput [employer] [address] [facility] [address] [facility] [address], [address]. tel:[phone] Family History Family Member Type Diagnosis Age At Onset No Information Payers Payer name Insurance type Covered constitution party ID Guera chavez(s) [facility] [id number] Social History Type Description Quantity Date Captured Comments Sex Female Smoking Status No Information Chief Complaint And Reason For Visit No Information Reason For Referral Reason For Referral No Information History Of Present Illness Encounter Date Complaint History Of Prese nt Illness No Information Functional Status Date Functional Assessmen t No Information Instructions Date Instruction Additional Infor mation No Information Assessments Type Assessment Date No Information Patient Care Teams Name Effective Dates (start - stop) Status Members No Information
--- OUTSIDE RECORDS SUMMARY | 2023-03-07 20:30 | XMS_ITS | Continuity of Care Document ---
Author Name Unknown Organization [facility] Address [address] [place] [address] Care Team Providers Care Buffing Machine Tender Name Role Phone Navneet Urena CRNA Unavailable Unavailable Procedures Procedure Date Percutaneous Image guided destruction pr ocedures B Percutaneous Image guided destruction pr ocedures B Percutaneous Image guided destruction pr ocedures B Percutaneous Image guided injection, dra kaur, or ANESTH, HEAD/NECK/PTRUNK Percutaneous Image guided neuromodulatio n or intra Advance Directives Directive Yes / No Effective Date File Name No Information Encounters Encounter Description Practice Location Reason(s) For Visit Diagnoses Date Provider Providers Copied on Encounter [facility], [address] [place] [address], [id number], [facility] No Information 3 Romel Toth. [address] [place] [address], [id number] , . tel: [phone] Referring Provider: Sherri Nick, [address] [place] [address], [id number] . tel:[phone] [facility], [address] [place] [address], [id number], [facility] No Information 0 3 Jenny Duran. [address] [place], [place], [id number] , . tel: [phone] Referring Provider: Sherri Nick, [address] [place], [place] [address], [place], [address] . tel:[phone] [facility], [address] [place] [address], [id number], [facility] No Information 3 Jenny Duran. [address], [facility], [place], [place], [id number] , . tel:[phone] Referring Provider: Sherri Nick, [address] [place] [address], [address] . tel:[phone] [facility], [address] [place] [address], [id number], [facility] No Information 3 Romel Toth. [facility] [address], [place], [place], [id number] , . tel:[phone] Referring Provider: Sherri Nick, [address] [place] [address], [id number] . tel:[phone] [facility], [address] [place] [address], [id number], [facility] No Information 2 Romel Toth. [facility] [address], [facility], [place], [place], [id number] , . tel:[phone] Referring Provider: Wallace Rajput [facility] [address], [place], [address]. tel:[phone] [facility], [address] [place] [address], [id number], [facility] No Information 2 Valente Rasmussen. [facility] [address], [place], [place], [id number] , . tel:[phone] Referring Provider: [facility]put [facility] [address], [place], [address]. tel:[phone] Family History Family Member Type Diagnosis Age At Onset No Information Payers Payer name Insurance type Covered green party ID Guera chavez(s) [facility] [id number] Social History Type Description Quantity Date Captured [...]
--- OUTSIDE RECORDS SUMMARY | 2023-03-07 20:31 | XMS_ITS | Continuity of Care Document ---
Author Name Unknown Organization [facility] Address [address] [place] [address] Phone Care Team Providers Care Pin Puller Name Role Phone Sherri Nick MD Unavailable Unavailable Allergies, Adverse Reactions, Alerts Substance Reaction Status Criticality trimethoprim HivesHivesHives Active No Informati on sulfamethoxazole HivesHivesHives Active No Infor mation Medications Medication Instructions Dosage Effective Dates (start - stop) Status Comments hydrocodone 7.5 mg-acetaminophen 325 mg tablet take 1 tablet by oral route every 6 hours as needed for pain, max 3 /day for chronic pain - Active oxycodone 5 mg tablet take 1 tablet by o ral route every 4 - 6 hours as needed for post op pain - Active GABAPENTIN 300 MG CAPS 300 Capsule TAKE ONE CAPSULE BY MOUTH AT BEDTIME - Active cephalexin 500 mg capsule take 1 capsule by oral route every 6 hours for prophylactic 500 MG - Active lorazepam 0.5 mg tablet take [...] 200 MG - Active Procedures Procedure Date RF Cerv/Thor 2nd Level LEFT RF Cerv/Thor 3rd Level LEFT RF Cerv/Thor Single Level LEFT OFFICE VISIT, EST TELEMEDICINE Facet Jt Inj Or MBB Cervical/Thoracic LE FT Facet Jt Inj Or MBB Cerv/Thor 2nd Level LEFT OFFICE VISIT, EST TELEMEDICINE Facet Jt Inj Or MBB Cerv/Thor 2nd Level LEFT Facet Jt Inj Or MBB Cervical/Thoracic LE FT PT EVAL MOD COMPLEX 30 MIN SELF CARE MNGMENT TRAINING INJ TRIGGER POINT, 06/10 MUSCL OFFICE/OUTPATIENT VISIT, EST Drug Urine Toxology With Chromatography Drug test def 8-14 classes OFFICE VISIT, EST TELEMEDICINE No Charge For [...] POINT, / MUSCL Kenalog Triamcinolone acetonide inj OFFICE/OUTPATIENT VISIT, [...] Reports Forms INJ FORAMEN EPIDURAL L/S BILATERAL Foll-up eval q3mo opiod tx OFFICE VISIT, [...] Diagnoses Date Provider Providers Copied on Encounter [facility], [address] [facility] [place], [place], [id number] , [place] tel:[phone] [facility] Other spondylosis, cervical region Sep- 3 Park Polanco. [address] [facility] Belia Carlton [place], [place], [id number] , [place]. tel: [phone] Referring Provider: Ferny Rider, [address] [place] [address], [address]. tel:[phone] OFFICE VISIT, EST TELEMEDICINE [facility], [address] [place] [address], [id number] , [place] tel: [phone] [facility] Neck Pain (chief complaint) DepressionChron ic pain syndromeOther spondylosis, cervical regionRadiculop athy, lumbar regionFibromyal giaPostlaminect mu syndrome, not elsewhere classifiedLong term (current) use of opiate analgesic Sep-1 3 [facility]. [address] [place] [address] [address], [place], [place], [id number] , [place]. tel: [phone] [facility], [address] [place] [address], [id number] , [place] tel: [phone] [facility] No Information Sep-1 3 [facility]. [address] [facility] [address], [place], [place], [id number] , [place]. tel: [phone] [facility], [address] [place] [address], [id number] , [place] tel: [phone] [facility] Other spondylosis, cervical region Sep-0 3 [facility]. [address] [facility] [address], [place], [place], [id number] , [place]. tel: [phone] [facility], [address] [place] [address], [id number] , [place] tel: [phone] [facility] Other spondylosis, cervical region Sep-0 3 Park Polanco. [address] [place] [address], [id number] , [place]. tel: [phone] Referring Provider: Ferny Rider, [address] [place] [address], [address]. tel:[phone] OFFICE VISIT, EST TELEMEDICINE [facility], [address] [place] [address], [id number] , [place] tel:[phone] [facility] Neck Pain (chief complaint) Chronic pain syndromeOther spondylosis, cervical regionRadiculop athy, lumbar regionFibromyal giaPostlaminect mu syndrome, not elsewhere classifiedDepre ssionLong term (current) use of opiate analgesic 3 Jerrod Jones. [address] [facility] [address], [place], [place], [id number] , [place]. tel:[phone] Referring Provider: Ferny Rider, [address] [place] [address], [address]. [phone] [facility], [address] [place] [address], [id number] , [place] tel:[phone] [facility] Other spondylosis, cervical region 3 Park Polanco. [address] [place] [address], [id number] , [place]. tel:[phone] Referring Provider: Ferny Rider, [address] [place] [address], [address]. [phone] [facility], [address] [place] [address], [id number] , [place] tel:[phone] [facility] cervicalgia (chief complaint) Other spondylosis, cervical regionOther intervertebral disc degeneration, lumbar region 3 He Rios. [address] [place] [address], [id number] , [place]. tel:[phone] Referring Provider: Ferny Rider, [address] [place] [address], [address]. [phone] OFFICE/OUTPAT IENT VISIT, EST [facility], [address] [place] [address], [id number] , [place] [phone] [facility] low back pain (chief complaint) DepressionChron ic pain syndromeRadicul opathy, cervical regionRadiculop athy, lumbar regionFibromyal giaPostlaminect mu syndrome, not elsewhere classifiedLong term (current) use of opiate analgesicEncoun ter for therapeutic drug level monitoringOther spondylosis, cervical regionMyalgia, other site 3 Jerrod Jones. [address] [facility] [address], [place], [place], [id number] , [place]. tel:[phone] Referring Provider: Ferny Rider, [address] [place] [address], [address]. tel:[phone] [facility], [address] [place] [address], [id number] , [place] tel: [phone] [facility] [place] No Information 3 Jerrod Jones. [address] [facility] [address], [place], [place], [id number] , [place]. tel: [phone] OFFICE VISIT, EST TELEMEDICINE [facility], [address] [place] [address], [id number] , [place] tel: [phone] [facility] low back pain (chief complaint) DepressionChron ic pain syndromeRadicul opathy, cervical regionRadiculop athy, lumbar regionFibromyal giaPostlaminect mu syndrome, not elsewhere classifiedLong term (current) use of opiate analgesic 3 Dorene Trejo. [address] [facility] [address], [place], [id number] , [place]. tel: [phone] [facility], [address] [place] [address], [id number] , [place] tel: [phone] [facility] low back pain (chief complaint) Chronic pain syndromeDepress ionRadiculopath y, cervical regionRadiculop athy, lumbar regionFibromyal giaPostlaminect mu syndrome, not elsewhere classifiedLong term (current) use of opiate analgesic 3 Marybel Small. [address] [facility] [address], [place], [id number] , [place]. tel:[phone] Referring Provider: Ferny Rider, [address] [place] [address], [address]. [phone] [facility], [address] [place] [address], [id number] , [place] [phone] [facility] Radiculopathy, cervical region Alireza- 3 Brentonmagda Polanco. [address] [place] [address], [id number] , [place]. tel:[phone] Referring Provider: Ferny Rider, [address] [place] [address], [address]. [phone] OFFICE VISIT, EST TELEMEDICINE [facility], [address] [place] [address], [id number] , [place] tel:[phone] [facility] low back pain (chief complaint) DepressionChron ic pain syndromeRadicul opathy, cervical regionRadiculop athy, lumbar regionFibromyal giaPostlaminect mu syndrome, not elsewhere classifiedLong term (current) use of opiate analgesic 3 Nyongesa Karen. [address] [facility] [address], [place], [place], [id number] , [place]. tel:[phone] [facility], [address] [place] [address], [id number] , [place] tel:[phone] [facility] Myalgia, other site 3 Dorene Trejo. [address] [facility] [address], [place], [id number] , [place]. tel:[phone] Referring Provider: Ferny Rider, [address] [place] [address], [address]. [phone] OFFICE VISIT, EST TELEMEDICINE [facility], [address] [place] [address], [id number] , [place] tel:[phone] [facility] low back pain (chief complaint) DepressionChron ic pain syndromeRadicul opathy, cervical regionRadiculop athy, lumbar regionFibromyal giaPostlaminect mu syndrome, not elsewhere classifiedLong term (current) use of opiate analgesic 3 Nyongesa Karen. [address] [facility] [address], [place], [id number] , [place]. tel:[phone] [facility], [address] [place] [address], [id number] , [place] tel: [phone] [facility] [place] No Information 3 [facility]. [address] [facility] [address], [place], [id number] , [place]. tel:[phone] OFFICE/OUTPAT IENT VISIT, EST [facility], [address] [place] [address], [id number] , [place] tel: [phone] [facility] low back pain (chief complaint) DepressionChron ic pain syndromeRadicul opathy, lumbar regionFibromyal giaPostlaminect mu syndrome, not elsewhere classifiedLong term (current) use of opiate analgesicRadicu lopathy, cervical region 3 [facility]. [address] [facility] [address], [place], [id number] , [place]. tel:[phone] Referring Provider: Ferny Rider, [address] [place] [address], [address]. [phone] OFFICE VISIT, EST [facility], [address] [place] [address], [id number] , [place] tel:[phone] [facility] low back pain (chief complaint) DepressionChron ic pain syndromeOther intervertebral disc degeneration, lumbar regionRadiculop athy, lumbar regionFibromyal giaPostlaminect mu syndrome, not elsewhere classifiedLong term (current) use of opiate analgesic 2 [facility]. [address] [facility] [address], [place], [place], [id number] , [place]. tel:[phone] Referring Provider: Ferny Rider, [address] [place] [address], [address]. tel:[phone] OFFICE/OUTPAT IENT VISIT, [facility], [address] [place] [address], [id number] , [place] tel:[phone] [facility] low back pain (chief complaint) Radiculopathy, lumbar regionMyalgia, other site Sep-2 2 Dorene Trejo. [address] [facility] [address], [place], [place], [id number] , [place]. tel:[phone] [facility], [address] [place] [address], [id number] , [place] tel:[phone] [facility] No Information Sep-2 2 Arpan Ferny. [address] [place], [place], [id number] , [place]. tel:[phone] Referring Provider: Ferny Rider, [address] [place] [address], [address]. [phone] OFFICE/OUTPAT IENT VISIT, EST [facility], [address] [place] [address], [id number] , [place] tel:[phone] [facility] low back pain (chief complaint) DepressionChron ic pain syndromeOther intervertebral disc degeneration, lumbar regionRadiculop athy, lumbar regionFibromyal giaPostlaminect mu syndrome, not elsewhere classifiedLong term (current) use of opiate analgesicEncoun ter for screening for other disorderEncount er for therapeutic drug level monitoring Sep- 2 Lissagianni Jones. [address] [facility] [address], [place], [place], [id number] , [place]. tel:[phone] Referring Provider: Ferny Rider, [address] [place] [address], [address]. [phone] OFFICE VISIT, EST TELEMEDICINE [facility], [address] [place] [address], [id number] , [place] tel:[phone] [facility] low back pain (chief complaint) DepressionChron ic pain syndromeOther intervertebral disc degeneration, lumbar regionRadiculop athy, lumbar regionFibromyal giaPostlaminect mu syndrome, not elsewhere classifiedLong term (current) use of opiate analgesic Apr- 2 Lissacarlota Karen. [address] [facility] [address], [place], [place], [id number] , [place]. tel:[phone] Referring Provider: Ferny Rider, [address] [place] [address], [address]. [phone] OFFICE VISIT, EST TELEMEDICINE [facility], [address] [place] [address], [id number] , [place] tel:[phone] [facility] low back pain (chief complaint) Radiculopathy, lumbar regionOther intervertebral disc degeneration, lumbar regionLong term (current) use of opiate analgesicDepres sionChronic pain syndromeFibromy algiaPostlamine ctomy syndrome, not elsewhere classified 2 Catherine Neil. [address] [facility] [address], [place], [place], [id number] , [place]. tel:[phone] [facility], [address] [place] [address], [id number] , [place] tel:[phone] [facility] Radiculopathy, lumbar region 2 Jerrod Jones. [address] [facility] [address], [place], [place], [id number] , [place]. tel:[phone] Referring Provider: Ferny Rider, [address] [place] [address], [address]. [phone] [facility], [address] [place] [address], [id number] , [place] tel:[phone] [facility] Radiculopathy, lumbar region [address] Reg[address] [facility], [address] [facility] [address], [place], [address], [place]. [phone] Referring Provider: Ferny Rider, [address] [place] [address], [address]. [phone] OFFICE VISIT, EST TELEMEDICINE [facility], [address] [place] [address], [id number] , [place] tel:[phone] [facility] low back pain (chief complaint) Radiculopathy, lumbar regionOther intervertebral disc degeneration, lumbar regionLong term (current) use of opiate analgesicDepres sionChronic pain syndromeFibromy algiaPostlamine ctomy syndrome, not elsewhere classifiedTobac co use disorder, moderate 2 Jerrod Jones. [address] [facility] [address], [place], [place], [id number] , [place]. [phone] Referring Provider: Ava Chirinos, [address], [place], [address]. tel:[phone] [facility], [address] [place] [address], [id number] , [place] [phone] [facility] Other intervertebral disc degeneration, lumbar regionRadiculop athy, lumbar region 2 Jerrod Jones. [address] [facility] [address], [place], [place], [id number] , [place]. [phone] Referring Provider: Ferny Rider, [address] [place] [address], [address]. tel:[phone] [facility], [address] [place] [address], [id number] , [place] [phone] [facility] No Information 2 Jerrod Jones. [address] [facility] [address], [place], [place], [id number] , [place]. [phone] Referring Provider: Ferny Rider, [address] [place] [address], [address]. tel:[phone] [facility], [address] [place] [address], [id number] , [place] [phone] [facility] Radiculopathy, lumbar region [address] [facility], [address] [facility] [address], [place], [address], [place]. [phone] Referring Provider: Ferny Rider, [address] [place] [address], [address]. tel:[phone] OFFICE VISIT, EST TELEMEDICINE [facility], [address] [place] [address], [id number] , [place] tel: [phone] [facility] low back pain (chief complaint) senior living (current) use of opiate analgesicDepres sionChronic pain syndromeOther intervertebral disc degeneration, lumbar regionFibromyal giaPostlaminect mu syndrome, not elsewhere classifiedRadic ulopathy, lumbar regionTobacco use disorder, moderate 2 Nyongesa Karen. [address] [facility] [address], [place], [place], [id number] , [place]. tel: [phone] Referring Provider: Ferny Rider, [address] [place] [address], [address]. [phone] [facility], [address] [place] [address], [id number] , [place] tel: [phone] [facility] [place] No Information 1 Nyongesa Karen. [address] [facility] [address], [place], [id number] , [place]. tel: [phone] Psych Dx Eval [facility], [address] [place] [address], [id number] , [place] tel: [phone] [facility] Pain disorder with related psychological factorsBipolar disorder 1 Yvonne Love Peg. [address] [place] [address], [id number] , [place]. tel: [phone] OFFICE VISIT, EST TELEMEDICINE [facility], [address] [place] [address], [id number] , [place] tel: [phone] [facility] [place] low back pain (chief complaint) senior living (current) use of opiate analgesicDepres sionChronic pain syndromeOther intervertebral disc degeneration, lumbar regionFibromyal giaPostlaminect mu syndrome, not elsewhere classifiedRadic ulopathy, lumbar regionTobacco use disorder, moderate 1 Nyongesa Karen. [address] [facility] [address], [place], [id number] , [place]. tel: [phone] [facility], [address] [facility] [place], [id number] , [place] tel: [phone] [facility] [place] No Information 1 Arpan Isaacs. [address] [facility] [place], [place], [id number] , [place]. 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 [address], [place], [place], [id number] , [place]. tel: [phone] Referring Provider: Ferny Rider, [address] [place] [address], [address]. tel:[phone] [facility], [address] [place] [address], [id number] , [place] tel: [phone] [facility] No Information 1 Jerrod Jones. [address], [place], [place], [id number] , [place]. 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 [address], [place], [place], [id number] , [place]. tel: [phone] Referring Provider: Ferny Will J, [address] [place] [address], [address]. [phone] OFFICE VISIT, EST TELEMEDICINE [facility], [address] [place] [address], [id number] , [place] tel:[phone] [facility] low back pain (chief complaint) Chronic pain syndromeOther intervertebral disc degeneration, lumbar regionFibromyal giaPostlaminect mu syndrome, not elsewhere classifiedLong term (current) use of opiate analgesicDepres ivory 1 Nyongesa Karen. [address], [place], [place], [id number] , [place]. tel: [phone] Referring Provider: Ferny Rider, [address] [place] [address], [address]. [phone] OFFICE VISIT, EST TELEMEDICINE [facility], [address] [place] [address], [id number] , [place] tel: [phone] [facility] low back pain (chief complaint) Chronic pain syndromeOther intervertebral disc degeneration, lumbar regionFibromyal giaPostlaminect mu syndrome, not elsewhere classifiedLong term (current) use of opiate analgesicDepres sionTobacco use disorder, moderate 1 Nyongesa Karen. [address], [place], [place], [id number] , [place]. tel:[phone] Referring Provider: Ferny Rider, [address] [place] [address], [address]. tel:[phone] [facility], [address] [place] [address], [id number] , [place] tel:[phone] [facility] No Information 1 Nyongesa Karen. [address] [facility] [address] [facility] [address], [place], [place], [id number] , [place]. tel:[phone] OFFICE/OUTPAT IENT VISIT, EST [facility], [address] [place] [address], [id number] , [place] tel:[phone] [facility] low back pain (chief complaint) Chronic pain syndromeOther intervertebral disc degeneration, lumbar regionFibromyal giaPostlaminect mu syndrome, not elsewhere classifiedLong term (current) use of opiate analgesicDepres sionTobacco use disorder, moderateRadicul opathy, lumbar regionEncounter for therapeutic drug level monitoring 1 Nyongesa Karen. [address] [facility] [address], [facility], [place], [id number] , [place]. tel:[phone] Referring Provider: Ferny Rider, [address] [place] [address], [address]. tel:[phone] OFFICE VISIT, EST TELEMEDICINE [facility], [address] [place] [address], [id number] , [place] [phone] [facility] low back pain (chief complaint) Chronic pain syndromeOther intervertebral disc degeneration, lumbar regionFibromyal giaPostlaminect mu syndrome, not elsewhere classifiedLong term (current) use of opiate analgesicDepres sionTobacco use disorder, moderateRadicul opathy, lumbar region 1 Nyongesa Karen. [address] [facility] [address], [place], [place], [id number] , [place]. tel:[phone] Referring Provider: Ferny Rider, [address] [place] [address], [address]. tel:[phone] OFFICE/OUTPAT IENT VISIT, EST [facility], [address] [place] [address], [id number] , [place] [phone] [facility] low back pain (chief complaint) Chronic pain syndromeOther intervertebral disc degeneration, lumbar regionFibromyal giaPostlaminect mu syndrome, not elsewhere classifiedLong term (current) use of opiate analgesicDepres sionTobacco use disorder, moderateRadicul opathy, lumbar region Aug- 1 Nyongesa Karen. [address] [facility] [address], [place], [place], [id number] , [place]. tel:[phone] Referring Provider: Ferny Rider, [address] [place] [address], [address]. [phone] OFFICE VISIT, EST TELEMEDICINE [facility], [address] [place] [address], [id number] , [place] [phone] [facility] low back pain (chief complaint) Chronic pain syndromeOther intervertebral disc degeneration, lumbar regionFibromyal giaPostlaminect mu syndrome, not elsewhere classifiedLong term (current) use of opiate analgesicDepres sionTobacco use disorder, moderateRadicul opathy, lumbar region Aug- 6 1 Jerrod Jones. [address] [facility] [address], [place], [place], [id number] , [place]. tel:[phone] Referring Provider: Ferny Rider, [address] [place] [address], [address]. [phone] [facility] [facility], [address] [place] [address], [id number] , [place] tel:[phone] [facility] No Information 0 1 Jerrod Jones. [address], [place], [place], [id number] , [place]. [phone] Referring Provider: Ferny Rider, [address] [place] [address], [address]. [phone] [facility], [address] [place] [address], [id number] , [place] [phone] [facility] Radiculopathy, lumbar region Aug-0 3-202 1 Regulo Gonsalez[address] [facility], [address], [place], [address], [place]. [phone] Referring Provider: Ferny Rider, [address] [place] [address], [address]. tel:[phone] OFFICE VISIT, EST TELEMEDICINE [facility], [address] [place] [address], [id number] , [place] [phone] [facility] low back pain (chief complaint) Chronic pain syndromeOther intervertebral disc degeneration, lumbar regionFibromyal giaPostlaminect mu syndrome, not elsewhere classifiedLong term (current) use of opiate analgesicDepres sionTobacco use disorder, moderateRadicul opathy, lumbar region 1 Jerrod Jones. [address] [facility] [address], [place], [place], [id number] , [place]. [phone] Referring Provider: Ferny Rider, [address] [place] [address], [address]. [phone] [facility], [address] [place] [address], [id number] , [place] [phone] [facility] [place] No Information 1 Jerrod Jones. [address] [facility] [address], [place], [place], [id number] , [place]. [phone] Referring Provider: Ferny Rider, [address] [place] [address], [address]. [phone] OFFICE VISIT, EST TELEMEDICINE [facility], [address] [place] [address], [id number] , [place] [phone] [facility] low back pain (chief complaint) Chronic pain syndromeOther intervertebral disc degeneration, lumbar regionFibromyal giaPostlaminect mu syndrome, not elsewhere classifiedLong term (current) use of opiate analgesicDepres sionTobacco use disorder, moderateEncount er for therapeutic drug level monitoring 1 Jerrod Jones. [address] [facility] [address], [place], [place], [id number] , [place]. tel:[phone] Referring Provider: Ferny Rider, [address] [place] [address], [address]. tel:[phone] OFFICE VISIT, EST TELEMEDICINE [facility], [address] [place] [address], [id number] , [place] [phone] [facility] low back pain (chief complaint) Chronic pain syndromeOther intervertebral disc degeneration, lumbar regionFibromyal giaPostlaminect mu syndrome, not elsewhere classifiedLong term (current) use of opiate analgesicDepres sionTobacco use disorder, moderate Dec-0 8-202 0 Nyongesa Karen. [address] [facility] [address], [place], [place], [id number] , [place]. tel:[phone] Referring Provider: Ferny Rider, [address] [place] [address], [address]. [phone] OFFICE VISIT, EST TELEMEDICINE [facility], [address] [place] [address], [id number] , [place] [phone] [facility] low back pain (chief complaint) Chronic pain syndromeOther intervertebral disc degeneration, lumbar regionFibromyal giaPostlaminect mu syndrome, not elsewhere classifiedLong term (current) use of opiate analgesicDepres sionTobacco use disorder, moderate Nov-1 0-202 0 Nyongesa Karen. [address] [facility] [address], [place], [place], [id number] , [place]. [phone] Referring Provider: Ferny Rider, [address] [place] [address], [address]. [phone] OFFICE VISIT, EST TELEMEDICINE [facility], [address] [place] [address], [id number] , [place] [phone] [facility] low back pain (chief complaint)Ne ck Pain (chief complaint) Chronic pain syndromeOther intervertebral disc degeneration, lumbar regionFibromyal giaPostlaminect mu syndrome, not elsewhere classifiedLong term (current) use of opiate analgesicDepres sionTobacco use disorder, moderate Oct-0 6-202 0 Nyongesa Karen. [address] [facility] [address], [place], [place], [id number] , [place]. [phone] Referring Provider: Ferny Rider, [address] [place] [address], [address]. tel:[phone] OFFICE VISIT, EST TELEMEDICINE [facility], [address] [place] [address], [id number] , [place] [phone] [facility] low back pain (chief complaint) Chronic pain syndromeOther intervertebral disc degeneration, lumbar regionFibromyal giaPostlaminect mu syndrome, not elsewhere classifiedLong term (current) use of opiate analgesicDepres sionTobacco use disorder, moderate Sep-0 1-202 0 Nyongesa Karen. [address], [place], [place], [id number] , [place]. tel: [phone] Referring Provider: Ferny Rider, [address] [place] [address], [address]. tel:[phone] OFFICE/OUTPAT IENT VISIT, [facility], [address] [place] [address], [id number] , [place] tel: [phone] [facility] low back pain (chief complaint) Chronic pain syndromeOther intervertebral disc degeneration, lumbar regionFibromyal giaPostlaminect mu syndrome, not elsewhere classifiedLong term (current) use of opiate analgesicDepres sionTobacco use disorder, moderate Aug-1 0-202 0 Nyongesa Karen. [address] [facility] [address], [place], [place], [id number] , [place]. tel: [phone] Referring Provider: Ferny Rider, [address] [place] [address], [address]. tel:[phone] OFFICE/OUTPAT IENT VISIT, [facility], [address] [place] [address], [id number] , [place] tel: [phone] [facility] low back pain (chief complaint) Chronic pain syndromeOther intervertebral disc degeneration, lumbar regionFibromyal giaPostlaminect mu syndrome, not elsewhere classifiedDepre ssionTobacco use disorder, moderateLong term (current) use of opiate analgesic Navin-2 8 0 Nyongesa Karen. [address] [facility] [address], [place], [place], [id number] , [place]. tel: [phone] Referring Provider: Ferny Rider, [address] [place] [address], [address]. tel:[phone] OFFICE/OUTPAT IENT VISIT, [facility], [address] [place], [place], [id number] , [place] tel: [phone] [facility] [place] low back pain (chief complaint) Chronic pain syndromeOther intervertebral disc degeneration, lumbar regionFibromyal giaPostlaminect mu syndrome, not elsewhere classifiedEncou nter for therapeutic drug level monitoringDepre ssionTobacco use disorder, moderate 202 0 Jerrod Jones. [address], [place], [id number] , [place]. tel:[phone] Referring Provider: [facility] [address], [place], [address]. tel:[phone] Family History Family Member Type Diagnosis Age At Onset No Information Payers Payer name Insurance type Covered green party ID Authoryisel chavez(s) [facility] [id number] Social History Type Description Quantity Date Captured Comments Sex Female Smoking Status No Information Chief Complaint And Reason For Visit No Information Reason For Referral Reason For Referral No Information Plan Of Treatment Date Type Action Status Goal Update Social Hi story. Due on due Goal Review Allergy L ist. Due on due Goal FIT. Due on due Goal Height. Due on d ue Goal Creatinine. Due on [address]-Colonography. Due on due Goal PERSONAL ASSISTANT Scanned. Due on 023 due Goal OARS. Due on due Goal HANDSTITCHING MACHINE COLLAR FELLER Paperwork. Due on due Goal PHQ-9. Due on du e Goal Tobacco Use. Due on 023 due Goal Unhealthy drug u se screening. Due on due Goal UDT. Due on due Goal Order Annual PT. Due on due Goal FIT-DNA. Due on due Goal ALT (SGPT). Due on due Goal HPV. Due on due Goal Weight. Due on d ue Goal Lipid panel. Due on due Goal Zoster vaccine ( 1st). Due on due Goal AST (SGOT). Due on due Goal Medication Recon ciliation. Due on due Goal Hepatitis C scre ening. Due on due Goal HPV. Due on due Goal Weight. Due on d ue Goal Review Allergy L ist. Due on due Goal Lipid panel. Due on due Goal OARS. Due on due Goal HANDSTITCHING MACHINE COLLAR FELLER Paperwork. Due on due Goal Tobacco Use. Due on due Goal Order Annual PT. Due on due Goal Zoster vaccine ( 1st). Due on due Goal PERSONAL ASSISTANT Scanned. Due on due Goal UDT. Due on due Goal Update Social Hi story. Due on due Goal ALT (SGPT). Due on due Goal PHQ-9. Due on du e Goal FIT-DNA. Due on due Goal Unhealthy drug u se screening. Due on due Goal AST (SGOT). Due on due Goal Creatinine. Due on due Goal CT-Colonography. Due on due Goal Height. Due on d ue Goal FIT. Due on due Goal Medication Recon ciliation. Due on due Goal Hepatitis C scre ening. Due on due Goal UDT. Due on due Goal Creatinine. Due on due Goal AST (SGOT). Due on due Goal Order Annual PT. Due on due Goal HANDSTITCHING MACHINE COLLAR FELLER Paperwork. Due on due Goal PERSONAL ASSISTANT Scanned. Due on 023 due Goal ALT (SGPT). Due on due Goal Weight. Due on d ue Goal OARS. Due on due Goal FIT. Due on due Goal Hepatitis C scre ening. Due on due Goal Height. Due on d ue Goal CT-Colonography. Due on due Goal HPV. Due on due Goal Unhealthy drug u se screening. Due on due Goal FIT-DNA. Due on due Goal Medication Recon ciliation. Due on due Goal Review Allergy L ist. Due on due Goal Zoster vaccine ( 1st). Due on due Goal PHQ-9. Due on du e Goal Update Social Hi story. Due on due Goal Lipid panel. Due on due Goal Tobacco Use. Due on due Goal FIT. Due on due Goal Medication Recon ciliation. Due on due Goal Review Allergy L ist. Due on due Goal Weight. Due on d ue Goal Height. Due on d ue Goal OARS. Due on due Goal Unhealthy drug u se screening. Due on due Goal Order Annual PT. Due on due Goal FIT-DNA. Due on due Goal PHQ-9. Due on du e Goal Lipid panel. Due on due Goal HANDSTITCHING MACHINE COLLAR FELLER Paperwork. Due on due Goal CT-Colonography. Due on due Goal UDT. Due on due Goal Creatinine. Due on due Goal PERSONAL ASSISTANT Scanned. Due on due Goal ALT (SGPT). Due on due Goal AST (SGOT). Due on due Goal Zoster vaccine ( 1st). Due on due Goal Hepatitis C scre ening. Due on due Goal Tobacco Use. Due on due Goal HPV. Due on due Goal Update Social Hi story. Due on due Goal AST (SGOT). Due on due Goal Creatinine. Due on due Goal HANDSTITCHING MACHINE COLLAR FELLER Paperwork. Due on due Goal PERSONAL ASSISTANT Scanned. Due on due Goal UDT. Due on due Goal OARS. Due on due Goal ALT (SGPT). Due on due Goal Order Annual PT. Due on due Goal Update Social Hi story. Due on due Goal Review Allergy L ist. Due on due Goal Medication Recon ciliation. Due on due Goal Weight. Due on d ue Goal FIT-DNA. Due on due Goal FIT. Due on due Goal Lipid panel. Due on due Goal CT-Colonography. Due on due Goal Tobacco Use. Due on due Goal PHQ-9. Due on du e Goal Zoster vaccine ( 1st). Due on due Goal Unhealthy drug u se screening. Due on due Goal Height. Due on d ue Goal HPV. Due on due Goal Hepatitis C scre ening. Due on due Goal ALT (SGPT). Due on due Goal Weight. Due on d ue Goal Review Allergy L ist. Due on due Goal Lipid panel. Due on due Goal OARS. Due on due Goal PERSONAL ASSISTANT Scanned. Due on due Goal UDT. Due on due Goal AST (SGOT). Due on due Goal Unhealthy drug u se screening. Due on due Goal CT-Colonography. Due on due Goal FIT. Due on due Goal HANDSTITCHING MACHINE COLLAR FELLER Paperwork. Due on due Goal Tobacco Use. Due on due Goal Creatinine. Due on due Goal Order Annual PT. Due on due Goal HPV. Due on due Goal Hepatitis C scre ening. Due on due Goal Zoster vaccine ( 1st). Due on due Goal Update Social Hi story. Due on due Goal Medication Recon ciliation. Due on due Goal PHQ-9. Due on du e Goal FIT-DNA. Due on due Goal Height. Due on d ue Goal Weight. Due on d ue Goal OARS. Due on due Goal Height. Due on d ue Goal AST (SGOT). Due on due Goal PHQ-9. Due on du e Goal Tobacco Use. Due on due Goal Creatinine. Due on due Goal HANDSTITCHING MACHINE COLLAR FELLER Paperwork. Due on due Goal ALT (SGPT). Due on due Goal Update Social Hi story. Due on due Goal PERSONAL ASSISTANT Scanned. Due on due Goal Order Annual PT. Due on due Goal UDT. Due on due Goal Hepatitis C scre [...] u se screening. Due on due Goal UDT. Due on due Goal Unhealthy drug u se screening. Due on due Goal Update Social Hi story. Due on due Goal OARS. Due on due Goal Order Annual PT. Due on due Goal Creatinine. Due on due Goal PERSONAL ASSISTANT Scanned. Due on due Goal AST (SGOT). Due on due Goal HANDSTITCHING MACHINE COLLAR FELLER Paperwork. Due on due Goal HPV. Due on due Goal Lipid panel. Due on due Goal ALT (SGPT). Due on due Goal CT-Colonography. Due on due Goal Weight. Due on d ue Goal PHQ-9. Due on du e Goal Zoster vaccine ( 1st). Due on due Goal Hepatitis C scre ening. Due on due Goal Review Allergy L ist. Due on due Goal FIT-DNA. Due on due Goal Height. Due on d ue Goal Tobacco Use. Due on due Goal FIT. Due on due Goal Medication Recon ciliation. Due on due Goal ALT (SGPT). Due on due Goal PHQ-9. Due on du e Goal Medication Recon ciliation. Due on due Goal UDT. Due on due Goal PERSONAL ASSISTANT Scanned. Due on due Goal HANDSTITCHING MACHINE COLLAR FELLER Paperwork. Due on due Goal OARS. Due [...] due Goal Creatinine. Due on due Goal HANDSTITCHING MACHINE COLLAR FELLER Paperwork. Due on due Goal ALT (SGPT). Due on due Goal HPV. Due on due Goal UDT. Due on due Goal Zoster vaccine ( 1st). Due on due Goal PHQ-9. Due on du e Goal FIT-DNA. Due on due Goal Tobacco Use. Due on due Goal Update Social Hi story. Due on due Goal Weight. Due on d ue Goal PERSONAL ASSISTANT Scanned. Due on due Goal Order Annual [...] Goal AST (SGOT). Due on due Goal PERSONAL ASSISTANT Scanned. Due on due Goal ALT (SGPT). Due on due Goal Medication Recon ciliation. Due on due Goal Unhealthy drug u se screening. Due on due Goal HPV. Due on due Goal FIT-DNA. Due on due Goal Height. Due on d ue Goal Update Social Hi story. Due on due Goal CT-Colonography. Due on due Goal HANDSTITCHING MACHINE COLLAR FELLER Paperwork. Due on due Goal OARS. Due [...] Goal AST (SGOT). Due on due Goal HANDSTITCHING MACHINE COLLAR FELLER Paperwork. Due on due Goal Creatinine. Due on due Goal Hepatitis C scre ening. Due on due Goal Zoster vaccine ( 1st). Due on due Goal PHQ-9. Due on du e Goal HPV. Due on due Goal PERSONAL ASSISTANT Scanned. Due on due Goal ALT (SGPT). [...] Medication Recon ciliation. Due on due Goal CT-Colonography. Due on due Goal ALT (SGPT). Due on due Goal AST (SGOT). Due on due Goal Order Annual PT. Due on due Goal OARS. Due on due Goal Creatinine. Due on due Goal HANDSTITCHING MACHINE COLLAR FELLER Paperwork. Due on due Goal PERSONAL ASSISTANT Scanned. Due on due Goal UDT. Due on due Goal Tobacco Use. Due on due Goal FIT. Due on due Goal Medication [...] Goal ALT (SGPT). Due on due Goal PERSONAL ASSISTANT Scanned. Due on due Goal Order Annual PT. Due on due Goal OARS. Due on due Goal HANDSTITCHING MACHINE COLLAR FELLER Paperwork. Due on due Goal UDT. Due on due Goal AST (SGOT). Due on due Goal Creatinine. Due on due Goal FIT-DNA. Due on due Goal Update Social Hi story. Due on due Goal Weight. Due on d ue Goal Height. Due on d ue Goal Zoster vaccine ( ). Due on due Goal Review Allergy L ist. Due on due Goal Unhealthy drug u se screening. Due on due Goal Medication Recon ciliation. Due on due Goal PHQ-9. Due on du e Goal Hepatitis C scre ening. Due on due Goal Lipid panel. Due on due Goal HPV. Due on due Goal FIT. Due on due Goal Tobacco Use. Due on due Goal CT-Colonography. Due on due Goal Creatinine. Due on due Goal PERSONAL ASSISTANT Scanned. Due on due Goal Order Annual PT. Due on due Goal UDT. Due on due Goal HANDSTITCHING MACHINE COLLAR FELLER Paperwork. Due on due Goal OARS. Due [...] Social Hi story. Due on due Goal PERSONAL ASSISTANT Scanned. Due on due Goal Weight. Due on d ue Goal Medication Recon ciliation. Due on due Goal Order Annual PT. Due on due Goal Creatinine. Due on due Goal ALT (SGPT). Due on due Goal AST (SGOT). Due on due Goal HANDSTITCHING MACHINE COLLAR FELLER Paperwork. Due on due Goal UDT. Due [...] vaccine ( ). Due on due Goal Unhealthy drug u se screening. Due on due Goal Hepatitis C scre ening. Due on due Goal FIT. Due on due Goal Weight. Due on d ue Goal PHQ-9. Due on du e Goal HPV. Due on due Goal CT-Colonography. Due on due Goal Hepatitis C scre ening. Due on due Goal HANDSTITCHING MACHINE COLLAR FELLER Paperwork. Due on due Goal Lipid panel. [...] due Goal FIT. Due on due Goal PERSONAL ASSISTANT Scanned. Due on due Goal Zoster vaccine ( 1st). Due on due Goal Review Allergy L ist. Due on due Goal Creatinine. Due on due Goal Tobacco Use. Due on due Goal OARS. Due on due Goal Order Annual PT. Due on due Goal Update Social Hi story. Due on due Goal HANDSTITCHING MACHINE COLLAR FELLER Paperwork. Due on due Goal Review Allergy L ist. Due on due Goal AST (SGOT). Due on due Goal PHQ-9. Due on du e Goal Creatinine. Due on due Goal PERSONAL ASSISTANT Scanned. Due on due Goal ALT (SGPT). Due on due Goal UDT. Due on due Goal Height. Due on d ue Goal Medication Recon ciliation. Due on due Goal Weight. Due on d ue Goal Weight. Due on d ue Goal UDT. Due on due Goal Tobacco Use. Due on due Goal AST (SGOT). Due on due Goal Update Social Hi story. Due on due Goal Creatinine. Due on due Goal Medication Recon ciliation. Due on due Goal OARS. Due on due Goal HANDSTITCHING MACHINE COLLAR FELLER Paperwork. Due on due Goal Order Annual PT. Due on due Goal Height. Due on d ue Goal ALT (SGPT). Due on due Goal PERSONAL ASSISTANT Scanned. Due on due Goal Review Allergy L ist. Due on due Goal PHQ-9. Due on du e Goal Review Allergy L ist. Due on due Goal Medication Recon ciliation. Due on due Goal Tobacco Use. Due on due Goal HANDSTITCHING MACHINE COLLAR FELLER Paperwork. Due on due Goal Creatinine. Due on due Goal UDT. Due on due Goal Order Annual PT. Due on due Goal PHQ-9. Due on du e Goal ALT (SGPT). Due on due Goal AST (SGOT). Due on due Goal OARS. Due on due Goal PERSONAL ASSISTANT Scanned. Due on due Goal Update Social Hi story. Due on due Goal Height. Due on d ue Goal Weight. Due on d ue Goal OARS. Due on due Goal HANDSTITCHING MACHINE COLLAR FELLER Paperwork. Due on due Goal Review Allergy L ist. Due on due Goal Medication Recon ciliation. Due on due Goal UDT. Due on due Goal AST (SGOT). Due on due Goal ALT (SGPT). Due on due Goal Tobacco Use. Due on due Goal Creatinine. Due on due Goal Order Annual PT. Due on due Goal Weight. Due on d ue Goal PERSONAL ASSISTANT Scanned. Due on due Goal PHQ-9. Due [...] due Goal Creatinine. Due on due Goal PERSONAL ASSISTANT Scanned. Due on due Goal OARS. Due on due Goal HANDSTITCHING MACHINE COLLAR FELLER Paperwork. Due on due Goal Update Social Hi story. Due on due Goal Review Allergy L ist. Due on due Goal Medication Recon ciliation. Due on due Goal UDT. Due on due Goal Weight. Due on d ue Goal AST (SGOT). Due on due Goal Update Social Hi story. Due on due Goal Creatinine. Due on due Goal UDT. Due on due Goal OARS. Due on due Goal Height. Due on d ue Goal HANDSTITCHING MACHINE COLLAR FELLER Paperwork. Due on due Goal PERSONAL ASSISTANT Scanned. Due on due Goal Weight. Due on d ue Goal Medication Recon ciliation. Due on due Goal Tobacco Use. Due on due Goal ALT (SGPT). Due on due Goal Review Allergy L ist. Due on due Goal Order Annual PT. Due on due Goal PHQ-9. Due on du e Goal HANDSTITCHING MACHINE COLLAR FELLER Paperwork. Due on due Goal Review Allergy [...] Medication Recon ciliation. Due on due Goal PERSONAL ASSISTANT Scanned. Due on due Goal Height. Due [...] Goal ALT (SGPT). Due on due Goal PERSONAL ASSISTANT Scanned. Due on due Goal HANDSTITCHING MACHINE COLLAR FELLER Paperwork. Due on due Goal Medication Recon ciliation. Due on due Goal Review Allergy L ist. Due on due Goal Weight. Due on d ue Goal OARS. Due on due Goal Update Social Hi story. Due on due Goal UDT. Due on due Goal Creatinine. Due on due Goal HANDSTITCHING MACHINE COLLAR FELLER Paperwork. Due on due Goal Medication Recon ciliation. Due on due Goal PERSONAL ASSISTANT Scanned. Due on due Goal Weight. Due [...] Medication Recon ciliation. Due on due Goal HANDSTITCHING MACHINE COLLAR FELLER Paperwork. Due on due Goal OARS. Due on due Goal UDT. Due on due Goal PERSONAL ASSISTANT Scanned. Due on due Goal Weight. Due on d ue Goal Review Allergy L ist. Due on due Goal Update Social Hi story. Due on due Goal AST (SGOT). Due on due Goal Creatinine. Due on due Goal Height. Due on d ue Goal Order Annual PT. Due on due Goal PERSONAL ASSISTANT Scanned. Due on due Goal Creatinine. Due on due Goal UDT. Due on due Goal ALT (SGPT). Due on due Goal OARS. Due on due Goal HANDSTITCHING MACHINE COLLAR FELLER Paperwork. Due on due Goal AST (SGOT). [...] Social Hi story. Due on due Goal PERSONAL ASSISTANT Scanned. Due on due Goal HANDSTITCHING MACHINE COLLAR FELLER Paperwork. Due on due Goal UDT. Due [...] Goal ALT (SGPT). Due on due Goal HANDSTITCHING MACHINE COLLAR FELLER Paperwork. Due on due Goal UDT. Due on due Goal OARS. Due on due Goal PERSONAL ASSISTANT Scanned. Due on due Goal Creatinine. Due [...] Allergy L ist. Due on due Goal HANDSTITCHING MACHINE COLLAR FELLER Paperwork. Due on due Goal OARS. Due on due Goal ALT (SGPT). Due on due Goal AST (SGOT). Due on due Goal PERSONAL ASSISTANT Scanned. Due on due Goal Update Social Hi story. Due on due Goal Order Annual PT. Due on due Goal Weight. Due on d ue Goal Medication Recon ciliation. Due on due Goal Height. Due on d ue Goal PHQ-9. Due on du e Goal PERSONAL ASSISTANT Scanned. Due on due Goal PHQ-9. Due on du e Goal UDT. Due on due Goal OARS. Due on due Goal Order Annual PT. Due on due Goal ALT (SGPT). Due on due Goal AST (SGOT). Due on due Goal HANDSTITCHING MACHINE COLLAR FELLER Paperwork. Due on due Goal Tobacco Use. Due on due Goal Update Social Hi story. Due on due Goal Height. Due on d ue Goal Weight. Due on d ue Goal Creatinine. Due on due Goal Review Allergy L ist. Due on due Goal Medication Recon ciliation. Due on due Goal Creatinine. Due on due Goal Update Social Hi story. Due on due Goal HANDSTITCHING MACHINE COLLAR FELLER Paperwork. Due on due Goal UDT. Due on due Goal ALT (SGPT). Due on due Goal Review Allergy L ist. Due on due Goal Tobacco Use. Due on due Goal PERSONAL ASSISTANT Scanned. Due on due Goal Medication Recon [...] & Advanced Practice Nursing Providers : Physician Consultant (related to Other intervertebral disc degeneration, lumbar region) ordered Referral Ordered: Ava [facility]iscoll -Physician Assistants & Advanced Practice Nursing Providers : Physician Consultant (related to Postlaminectomy syndrome, not elsewhere classified) ordered Referral Ordered: Ava Driscoll -Physician Assistants & Advanced Practice Nursing Providers : Physician Consultant (related to Other intervertebral disc degeneration, lumbar region) ordered Referral Ordered: Ava Driscoll -Physician Assistants & Advanced Practice Nursing Providers : Physician Consultant (related to Postlaminectomy syndrome, not elsewhere classified) ordered Referral Ordered: Ava Driscoll -Physician Assistants & Advanced Practice Nursing Providers : Physician Consultant (related to Radiculopathy, lumbar region) ordered Referral Referred To: [facility]
[address] [place], [address] [phone] Ordered: Referrals: Physician Assistants & Advanced Practice Nursing Providers : Physician Consultant. Ava Driscoll ordered Future Order: Radiology Order [...] in the setting of chronic low back pain and neck pain. Pain has been worse this month. Neck pain continues to be the most bothersome. L C5-C6, C6-C7 RFA scheduled on 02/28/[address] Nick. Inquires if there is a possibility being paralyzed from the ablation. Most of today's visit was spent on procedure education. Reports current medication regimen provides 70% pain relief and allows for increased functionality. Continues to utilize Marion 7.5-325mg TID with significant benefit. Denies OIC or other side effects from current medication regimen. No other concerns today. Neck Pain Duration: chroni c. The problem has worsened. The frequency of pain is constant. Relieving factors include narcotic analgesics. Neck Pain Duration: chroni c. Location of pain is low back pain. Pertinent negatives include bladder incontinence. Comments: Zach capone presents here today virtually for follow up and medication refill regarding ongoing chronic neck and low back pain. Patient has been stable since NEETU. Patient is S/P Left C5-C6,C6-C7 joints (C5, C6, C7 facet nerves) Diagnostic RFWU which had provided 85% pain relief. She would like to schedule confirmatory injection.Reports current medication regimen provides 85% relief, allowing for increased/decreased functionality. Denies any other SEs r/t current medications. No other concerns today. 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 Her battery is getting low. cervicalgia Patient is a 57 year female with complaints of chronic ongoing neck ain. Patient also has a history of lower back pain and is doing better with use of her SCS. She has had the SCS about a year. She reports cervical fusion of C6-7 surgery about 15 years ago. She is reporting increasing neck pain. The pain is a a constant ache in the neck at the center of her neck that increase with movement. She finds heat and cold and rest and medications offer some releif but the pain is constant. She has tried PT in the past but found it increased her pain so she stopped. Patietn goal is to perform her daily activity with less limitation. low back pain Severity level i s 3. Duration: chronic. The problem is worsening. It occurs persistently. The client describes the pain as sharp. Symptoms are aggravated by bending, sitting, movement and prolonged positioning. Symptoms are relieved by pain meds/drugs. Comments: Zach capone is a 56 y/o female who presents for a follow up and medication refill in the setting of chronic low back pain and neck pain . Pain neck has been worse this month. Lower back pain is stable. . Continues to use Lumbar [employer] SCS with benefit.Neck pain with radiation into the shoulders and down the arms continues to be the most bothersome. denies dropping objects or UE weakness. She reports intermittent headaches. S/p MIHAI on 11/14/22 without relief. States she has been taking more Marion d/t increased neck pain. Interested in trialing RF work up as previously discussed. Discussed trialling TPI in cervical region - pt is interested. Reports current medication regimen provides 75% pain relief and allows for increased functionality. Continues to utilize Marion 7.5-325mg with significant benefit. Denies OIC or other side effects from current medication regimen. No other concerns today. low back pain Severity level i s 7. Duration: chronic. The problem is stable. Comments: Zach capone is a 57 y/o female who presents via [facility] for virtual follow up and medication refill in the setting of chronic low back pain. Pain has been stable since NEETU and is primarily located in her neck. Patient is routinely managed by Karen Elder DNP.Neck pain with radiation into the shoulders [...] allows for increased functionality. Continues to utilize Marion 7.5-325mg with significant benefit. Denies OIC or other side effects from current medication regimen. No other concerns today. low back pain Duration: chroni c. Comments: [...] allows for increased functionality. Continues to utilize Marion 7.5-325mg with significant benefit. Denies OIC or [...] arms. She states she has increased her Marion 7.5-325mg to 3x/day due to the increased neck pain. Expressed interest in receiving repeat TPIs. Notes she is cleared by her doctor to hold Eliquis for 3 days after 09/16/22 for the MIHAI. New anti-coagulation hold generated . Needs to schedule PT consult Reports current medication regimen provides 70% pain relief and allows for increased functionality. Continues to utilize Marion 7.5-325mg with significant benefit. Denies OIC or [...] allows for increased functionality. Continues to utilize Marion 7.5-325mg with significant benefit. Denies OIC or [...] allows for increased functionality. Continues to utilize Marion 7.5-325mg with significant benefit. Denies OIC or [...] back pain surrounding SCS battery. Karon from [employer] met with her for the reprogramming. Patient [...] was recently fired from her job at [employer]. She is currently looking for a new job and have various interviews lined up. Reports current medication regimen provides 85% relief and allows for increased functionality. She states she typically takes Marion 7.5-325mg 1-2x/day or sometimes not at all [...] in trialing imodium. Additionally, she inquires if 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 Reports current medication regimen provides 75% pain relief and allows for increased functionality. She notes she is taking #2-3tabs Marion 7.5-325mg every day. Denies side effects from current medication regimen. low back pain Severity level i s 1. Duration: chronic. The problem is improving. It occurs rarely. Location of pain is lower back and neck. Symptoms are aggravated by sitting. Symptoms are relieved by lying down, pain meds/drugs, rest and changing positions. low back pain Severity [...] that need to be answered on a [facility] letterhead. Reports current medication regimen provides 75% pain relief and allows for increased functionality. She notes she is taking #2-3tabs Marion 7.5-325mg every day. Denies side effects from [...] 55 y/o female, meeting with us via [email or web address] for virtual follow up and medication refill, [...] functionality. She notes she is taking #2-3tabs Marion 7.5-325mg every day. . Denies side effects [...] 55 y/o female, meeting with us via [email or web address] for virtual follow up and medication refill in setting of chronic low back pain. She states her low back pain is stable this month. She would like to trial SCS once she reaches full-time status at her new job at [employer] but she would like to start the PA process at this time. She has completed her MRI at [facility] but missed her Psych VVShe states her neck pain is also worse this month.Reports current medication regimen provides 75% pain relief and allows for increased functionality. She notes she is taking #2-3tabs Marion 7.5-325mg every day. She reports she recently [...] full-time status at her new job at [employer] but she would like to start the PA process at this time. She states her neck pain is also worse this month and endorses difficulty swallowing. She states her previous neck surgery was done in [place](?)Reports current medication regimen provides 75% pain relief and allows for increased functionality. She notes she is taking #2-3tabs Marion 7.5-325mg every day. Denies side effects from [...] She got a new job at [employer] center at [employer].Reports current medication regimen provides 70% pain relief [...] see pcp.She is taking a trip to [place], returning 12/30/20.Reports current medication regimen provides 75% pain relief and allows for increased functionality. Denies side effects from current medication regimen. Patient presents with #1 Marion (hydrocodone/acet) 7.5-325m - surplus. Pharmacy only gave [...] medication regimen.She is taking a trip to [place] returning 12/30/20No other concerns today. low back [...] viera is meeting with us today via [employer] for following up and medication refill. [...] a new job after her vacation to [place] to visit family. She will return on [...] for a follow up to fill out [place] unemployment insurance paperwork. Low back pain persists this month, but medication does help to some extent. She feels her pain is moderately managed at this time. She recently quit her job at [employer] since she could not complete the assigned [...] so far. 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 She would like an excuse letter to not wipe tables or limit the number of tables she can wipes. Hydrocodone helps pain, 75% pain relief . Denies SE from medication including constipation. 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 She requests restrictions include breaks to [...] with Psychiatry at [facility]. Functional Status Date Functional Assessmen t No Information Instructions Date Instruction Additional Infor mation No Information Assessments Type Assessment Date No Information Patient Care Teams Name Effective Dates (start - stop) Status Members No Information
[2023-03-07] MEDS: polyethylene glycoL 3350 17 GM PACK PO (20:36)
[2023-03-07] MEDS: SENNOSIDES 1 TAB TABLET 2 TAB PO (20:36)
[2023-03-07 20:40] VITALS: BP 118/68; PULSE 79; RESP 16; TEMP 36.7; O2SAT 99
[2023-03-07 20:42] VITALS: BP 118/68; PULSE 79; RESP 16; TEMP 36.7
== END 2023-03-07 20:42 | disposition home or self-care (01) ==
LOC: ED 20:29
PROVIDERS: Emergency Provider Family Medicine; PCP Physician Assistant Medical
DX: K59.00 Constipation, unspecified (principal)
CPT/HCPCS: 99283; A9270

== ENCOUNTER 2023-06-05 15:05 | Emergency (ER) | payer MEDICAID, SELFPAY ==
[2023-06-05 15:11] VITALS: BP 106/75; PULSE 97; RESP 18; TEMP 36.5; O2SAT 97; BMI 28.3
[2023-06-05 16:16] LABS: Basophils Absolute Auto 0.04 K/uL (0.00-0.30); Basophils Percent Auto 0.4 % (0.0-3.0); Eosinophils Absolute Auto 0.14 K/uL (0.00-0.50); Eosinophils Percent Auto 1.3 % (0.0-7.0); Hematocrit 39.4 % (33.0-51.0); Immature Granulocytes Abs Auto 0.03 K/uL (0.00-0.30); Immature Granulocytes Pct Auto 0.3 %; Lymphocytes Absolute Auto 3.43 K/uL (0.90-2.90); Lymphocytes Percent Auto 32.1 % (20-44); Mean Corpuscular HGB Conc 33 gm/dL (32-36); Mean Corpuscular Hemoglobin 31 pg (26-34); Mean Corpuscular Volume 93 fL (80-100); Monocytes Percent Auto 5.3 % (0.0-11.0); Neutrophils Absolute Auto 6.46 K/uL (1.7-7.0); Neutrophils Percent Auto 60.6 % (42.0-72.0); Platelet Count* 259 K/uL (140-440); RDW Coefficient of Variation % 15.5 % (11.5-15.5); Red Blood Count 4.23 m/uL (4.00-5.20); White Blood Count* 10.67 K/uL (4.50-11.00)
[2023-06-05 16:22] LABS: Chloride* 103 mmol/L (96-114); Potassium* 4.2 mmol/L (3.6-5.1); Sodium* 139 mmol/L (135-149)
[2023-06-05 16:24] LABS: Creatinine* 1.2 mg/dL (0.5-1.5); Est. Creatinine Clearance* 47.66; Estimated Glomerular Filt Rate 53 ml/min
[2023-06-05 16:25] LABS: Anion Gap 9 mEq/L (7-15); Blood Urea Nitrogen* 13 mg/dL (7-30); Calcium* 9.1 mg/dL (8.4-10.6); Carbon Dioxide* 27 mmol/L (20-32); Glucose* 66 mg/dL (60-115); Slide Review Reflex No
[2023-06-05 16:35] LABS: D Dimer Quantitative* 0.32 ug/ml (0.00-0.50)
--- NOTE | 2023-06-05 16:52 | CRLHL7_ITS ---
For Patients: As a result of the Cures Act, medical imaging exams and procedure reports are released immediately into your electronic medical record. You may view this report before your referring provider. If you have questions, please contact your health care provider. INDICATION: Shortness of breath. TECHNIQUE: Chest 2 views. COMPARISON: None. FINDINGS: Cardiovascular and mediastinum: Cardiomediastinal silhouette is within normal limits Lungs and pleural spaces: Lungs are clear. No sign of pleural effusion. No pneumothorax. Bones and soft tissues: Unremarkable for age.. Spinal generator leads extending to the mid thoracic spine. IMPRESSION: No acute cardiopulmonary process identified.. Dictated by Marcos Live MD @ 06/05/2023 6:23:53 PM (Electronically Signed)
--- NOTE | 2023-06-05 18:21 | ED.GENADULT ---
HPI - General Adult General Date Seen: 06/05/23 Chief complaint: Chest Pain Stated complaint: Suspected blood clot L lung Time Seen by Provider: 06/05/23 17:48 Source: patient Mode of arrival: ambulatory Limitations: no limitations History of Present Illness HPI narrative: Patient is a 57-year-old female presenting for left lower chest pain. She states the symptoms started yesterday. She does not remember she woke up with the pain or not. Not remember hurting herself for any recent heavy lifting. States she has had symptoms similar to this once in the past and she had a blood clot. The pain is in the left lower lateral rib region radiating to her back. She says the area is very tender to palpation. Denies midsternal chest pain, shortness of breath, weakness, numbness, headache, lightheadedness, dizziness, abdominal pain, fevers, chills. States she has been eating and drinking normally without issues. He does take pain medication will for chronic back issues but has not taking anything yet today. She was concerned she had a PE and that is why she came in. Related Data Home Medications Medication Instructions Recorded Confirmed divalproex 500 mg tablet,extended 500 mg PO QDAY 05/14/22 05/14/22 release 24 hr gabapentin 300 mg capsule 600 mg PO QHS 05/14/22 06/05/23 hydrocodone 7.5 mg-acetaminophen 1 tab PO QDAY PRN 05/14/22 06/05/23 325 mg tablet hydroxyzine HCl 25 mg tablet 25 mg PO QHS 05/14/22 06/05/23 lurasidone 80 mg tablet (Latuda) 80 mg PO QDAY 05/14/22 06/05/23 nitrofurantoin 100 mg PO DAILY 05/14/22 06/05/23 monohydrate/macrocrystals 100 mg capsule pantoprazole 40 mg tablet,delayed 40 mg PO QDAY 05/14/22 06/05/23 release sertraline 50 mg tablet 50 mg PO QDAY 05/14/22 06/05/23 tolterodine 2 mg capsule,extended 2 mg PO QDAY 05/14/22 06/05/23 release 24 hr topiramate 50 mg tablet 50 mg PO QDAY 05/14/22 06/05/23 trazodone 50 mg tablet 50 mg PO QHS PRN 05/14/22 06/05/23 quetiapine 25 mg tablet (Seroquel) 25 mg PO TID 06/05/23 06/05/23 Previous Rx's Medication Instructions Recorded apixaban 5 mg (74 tabs) tablets in 5 mg PO BID #74 ea 03/15/22 a dose pack (Eliquis DVT-PE Treat 30D Start) cyclobenzaprine 10 mg tablet 10 mg PO TID #15 tabs 09/13/22 lorazepam 0.5 mg tablet (Ativan) 0.5 mg PO TID PRN #7 tabs 10/09/22 Allergies Allergy/AdvReac Type Severity Reaction Status Date / Time sulfamethoxazole Allergy Verified 03/07/23 19:39 [From Bactrim] trimethoprim [From Bactrim] Allergy Verified 03/07/23 19:39 Review of Systems Status of ROS: Reports: 10 or more systems reviewed and unremarkable except as noted in History and below PFSH PFS Medical History No significant past medical history Surgical History H/O neck surgery ?Z98.890 - Other specified postprocedural states (ICD-10) H/O tubal ligation ?Z98.51 - Tubal ligation status (ICD-10) H/O rotator cuff surgery ?Z98.890 - Other specified postprocedural states (ICD-10) H/O: hysterectomy ?Z90.710 - Acquired absence of both cervix and uterus (ICD-10) Social History Smoking Status: Current every day smoker What tobacco products do you use: cigarettes Second hand tobacco smoke exposure: Yes How often do you have a drink containing alcohol: monthly or less How often do you have six or more drinks on one occasion: Never AUDIT-C Alcohol total score: 1 Non-prescribed substance use: denies use service: No Exam Narrative: Exam Narrative: Const: Well-nourished, Well-developed, in mild distress Eyes: PERRL, no conjunctival injection, and symmetrical lids HENT: Atraumatic external nose and ears. Moist mucous membranes. Neck: Symmetric, trachea midline, No thyromegaly. CVS: RRR, No murmurs or gallops. Peripheral pulses 2+ and equal in all extremities RESP: Unlabored respiratory effort. Clear to auscultation bilaterally. GI: Nontender/Nondistended, No rebound or guarding. MSK:Extremities w/o deformity, Normal Active ROM, tenderness to palpation noted of the left lower chest. Pain is between ribs 9 and 10 going from the anterior lateral to posterior lateral aspect Skin: Warm, Dry. No rashes or lesions. Neuro: Normal Muscle tone, No focal neurological deficits. Psych: Awake, Alert, & Oriented x3. Appropriate mood and affect. Const: Vital Signs, click to edit/add: Vital Signs - 24 hr 06/05/23 15:11 Temperature 97.7 F Pulse Rate [Right Pulse Oximeter] 97 Respiratory Rate 18 Blood Pressure [Ri ght Upper Arm] 106/75 Pulse Oximetry 97 Oxygen Delivery Me thod Room Air Course Vital Signs Vital signs: Initial Vital Signs Temperature 97.7 F 06/05/23 15:11 Temperature Source Temporal Artery Scan 06/05/23 15:11 Pulse Rate 97 06/05/23 15:11 Respiratory Rate 18 06/05/23 15:11 Blood Pressure 106/75 06/05/23 15:11 Blood Pressure Mean 85 06/05/23 15:11 Blood Pressure Position Sitting 06/05/23 15:11 Pulse Oximetry 97 06/05/23 15:11 Oxygen Delivery Method Room Air 06/05/23 15:11 Vital Signs Temperature 97.7 F 06/05/23 15:11 Pulse Rate 97 06/05/23 15:11 Respiratory Rate 18 06/05/23 15:11 Blood Pressure 106/75 06/05/23 15:11 Pulse Oximetry 97 06/05/23 15:11 Oxygen Delivery Method Room Air 06/05/23 15:11 Temperature 97.7 F 06/05/23 15:11 Pulse Rate 97 06/05/23 15:11 Respiratory Rate 18 06/05/23 15:11 Blood Pressure 106/75 06/05/23 15:11 Pulse Oximetry 97 06/05/23 15:11 Oxygen Delivery Method Room Air 06/05/23 15:11 Medications Administered Medications: Generic Name Dose Route Start Last Admin Trade Name Freq PRN Reason Stop Dose Admin Ketorolac Tromethamine 15 mg 06/05/23 18:20 06/05/23 18:40 Ketorolac 15 Mg/Ml Inj IVP 06/05/23 18:21 15 mg ONCE ONE Administration Morphine Sulfate 4 mg 06/05/23 18:20 06/05/23 18:40 Morphine 4 Mg/Ml Inj IVP 06/05/23 18:21 4 mg ONCE ONE Administration Medical Decision Making MDM Narrative Medical decision making narrative: Patient is a 57-year-old female presented emergency department for lower lateral chest pain. Last time she had symptoms like this it was a PE. In triage a CBC, BMP, D-dimer, chest x-ray were ordered. By the time I saw her in her room these labs have all resolved. D-dimer within normal limits. CBC and BMP showed no concerning findings. She was tender to the area described in the physical exam. While she does have a history of chickenpox and this could be early onset shingles the pain is only to palpation and not to light touch which make shingles less likely. EKG does have some even he to inversions. This could be a normal variant and again her previous EKGs is difficult to say if there were there previously or not and troponin was within normal limits. Do this I do not think this is ACS. I not believe is necessary to repeat a troponin as symptoms appear much more musculoskeletal in nature than ACS. She does state symptoms do not seem to improve much with the Toradol and morphine. Lab Data Labs: Lab Results 06/05/23 Range/Units 16:00 WBC 10.67 (4.50-11.00) K/uL RBC 4.23 (4.00-5.20) m/uL Hgb 13.0 (12.0-16.0) gm/dL Hct 39.4 (33.0-51.0) % MCV 93 (80-100) fL MCH 31 (26-34) pg MCHC 33 (32-36) gm/dL RDW Coeff of Jeremie 15.5 (11.5-15.5) % Plt Count 259 (140-440) K/uL Neut % (Auto) 60.6 (42.0-72.0) % Lymph % (Auto) 32.1 (20-44) % [place] % (Auto) 5.3 (0.0-11.0) % Eos % (Auto) 1.3 (0.0-7.0) % Baso % (Auto) 0.4 (0.0-3.0) % Neut # (Auto) 6.46 (1.7-7.0) K/uL Lymph # (Auto) 3.43 H (0.90-2.90) K/uL [place] # (Auto) 0.60 (0.00-0.90) K/UL Eos # (Auto) 0.14 (0.00-0.50) K/uL Baso # (Auto) 0.04 (0.00-0.30) K/uL Abs Immat Gran (auto) 0.03 (0.00-0.30) K/uL Imm/Tot Granulo (auto) 0.3 % D-Dimer Quant (PE/DVT) 0.32 (0.00-0.50) ug/ml Sodium 139 (135-149) mmol/L Potassium 4.2 (3.6-5.1) mmol/L Chloride 103 (96-114) mmol/L Carbon Dioxide 27 (20-32) mmol/L Anion Gap 9 (7-15) mEq/L BUN 13 (7-30) mg/dL Creatinine 1.2 (0.5-1.5) mg/dL Estimated Creat Clear 47.66 Estimated GFR 53 ml/min Glucose 66 (60-115) mg/dL Calcium 9.1 (8.4-10.6) mg/dL ECG Data Attestation: I personally reviewed and interpreted this ECG as follows: Prior ECG tracings: available for review Interpretation: Normal sinus rhythm the rate is 70 beats per minute, normal intervals, normal axis, now ST abnormalities. There are inversions in V1 and V2. Looking previous EKG is difficult to say if these inversions were there before or not Discharge Plan Discharge Clinical Impression: Atypical chest pain Patient Disposition: Home, Self-Care Condition: Stable Instructions: Chest Wall Pain (ED) Additional Instructions: Take your home pain medications. Return to emergency department for new worsening symptoms Prescriptions: No Action hydrocodone-acetaminophen 7.5-325 mg tablet 1 tab PO QDAY PRN trazodone 50 mg tablet 50 mg PO QHS PRN Patient Comments: TAKE ONE-HALF TO THREE TABLETS (25-150 MG) BY MOUTH AT BEDTIME IF NEEDED FOR SLEEP. sertraline 50 mg tablet 50 mg PO QDAY Patient Comments: TAKE ONE TABLET BY MOUTH DAILY gabapentin 300 mg capsule 600 mg PO QHS nitrofurantoin monohyd/m-cryst 100 mg capsule 100 mg PO DAILY topiramate 50 mg tablet 50 mg PO QDAY hydroxyzine HCl 25 mg tablet 25 mg PO QHS Patient Comments: TAKE 1 TO 2 TABLETS (25-50MG) BY MOUTH AT BEDTIME divalproex 500 mg tablet extended release 24 hr 500 mg PO QDAY pantoprazole 40 mg tablet,delayed release (DR/EC) 40 mg PO QDAY tolterodine 2 mg capsule,extended release 24hr 2 mg PO QDAY Patient Comments: TAKE 1 CAPSULE (2 MG) BY MOUTH ONCE DAILY. Latuda 80 mg tablet 80 mg PO QDAY Patient Comments: TAKE ONE TABLET (80MG) BY MOUTH ONCE DAILY WITH DINNER cyclobenzaprine 10 mg tablet 10 mg PO TID Qty: 15 0RF Eliquis DVT-PE Treat 30D Start 5 mg (74 tabs) tablets,dose pack 5 mg PO BID Qty: 74 0RF lorazepam [Ativan] 0.5 mg tablet 0.5 mg PO TID PRNQty: 7 0RF quetiapine [Seroquel] 25 mg tablet 25 mg PO TID Follow Up/Referrals: Ava Chirinos PA-C [Primary Care Provider] - Stand Alone Forms: [facility] Info Instructions
[2023-06-05] MEDS: MORPHINE 4 MG/ML INJ IVP (18:40)
[2023-06-05] MEDS: KETOROLAC 15 MG/ML inj IVP (18:40)
--- OUTSIDE RECORDS SUMMARY | 2023-06-05 18:49 | XMS_ITS | Continuity of Care Document ---
Author Name Unknown Organization [facility] enter Address [address] [place] [address] 11 [facility] [address] [place] [address] Phone Care Team Providers Care Buffing Turner And Counter Name Role Phone [facility] Unavailable Unava ilable Procedures Procedure Date Facet Jt Inj Cervical/Thoracic RIGHT Apr Facet Jt Inj Cerv/Thor 2nd Level RIGHT N Facet Jt Inj Cervical/Thoracic RIGHT Mar Facet Jt Inj Cerv/Thor 2nd Level RIGHT O ct RF Cerv/Thor 2nd Level LEFT RF Cerv/Thor [...] Diagnoses Date Provider Providers Copied on Encounter [facility], [address] [place] [address], [id number], tel:[phone] [place] [address] No Information 3 [facility]. [address] [place] [address], [id number], [place]. tel:[phone] Referring Provider: Sherri Nick, [address] [place], [address] . tel:[phone] [place] [address], [address] [place] [address], [id number], tel:[phone] [place] [address] No Information 3 [facility]. [address] [place] [address], [id number], [place]. tel:[phone] Referring Provider: Sherri Nick, [address] [place], [address] . tel:[phone] [place] [address], [address] [place] [address], [id number], tel:[phone] [place] [address] No Information 2 3 [facility]. [address] [place] [address], [id number], [place]. tel:[phone] Referring Provider: Sherri Nick, [address] [place], [address] . tel:[phone] [place] [address], [address] [place] [address], [id number], tel:[phone] [place] [address] No Information Feb-0 3 [facility]. [address] [place] [address], [id number], . tel:[phone] Referring Provider: Sherri Nick, [address] [facility] [place], [address] . tel:[phone] [facility], [address] [place] [address], [id number], [place] tel:[phone] [place] [address] No Information 3 [facility]. [address] [place] [address], [id number], [place]. tel:[phone] Referring Provider: Sherri Nick, [address] [facility] [place], [address] . tel:[phone] [facility], [address] [place] [address], [id number], [place] tel:[phone] [place] [address] No Information 3 [facility]. [address] [place] [address], [id number], [place]. tel:[phone] Referring Provider: Sherri Nick, [address] [place], [address] . tel:[phone] [facility], [address] [place] [address], [id number], [place] tel:[phone] [place] [address] No Information 2 [facility]. [address] [place] [address], [id number], [place]. tel:[phone] Referring Provider: Wallace Rajput [employer] [address] [facility] [address], [place], [address]. tel:[phone] [facility], [address] [place] [address], [id number], tel:[phone] [place] [address] No Information 2 [facility]. [address] [place] [address], [id number], [place]. tel:[phone] Referring Provider: Wallace Rajput [facility] [employer] [address] [facility] [address], [place], [address]. tel:[phone] [facility], [address] [place] [address], [id number], tel:[phone] [facility] No Information Aug-0 [facility]. [address] [place] [address], [id number], . tel:[phone] Referring Provider: Wallace Rajput [facility] [address] [employer] [address] [facility] [address], [place], [address]. tel:[phone] Family History Family Member Type Diagnosis Age At Onset No Information Payers Payer name Insurance type Covered libertarian ID Guera chavez(s) rachel [facility] [id number] Social History Type Description Quantity Date Captured [...]
--- OUTSIDE RECORDS SUMMARY | 2023-06-05 18:49 | XMS_ITS | Continuity of Care Document ---
Author Name Unknown Organization [facility] Address [address] [place] [address] Care Team Providers Care Cardiac Monitor Technician Name Role Phone Robby Moreno CRNA Unavailable Unavailable Procedures Procedure Date Percutaneous Image guided destruction pr ocedures B Percutaneous Image guided destruction pr ocedures B Percutaneous Image guided destruction pr ocedures B Percutaneous Image guided destruction pr ocedures B Percutaneous Image guided destruction pr ocedures B Percutaneous Image guided injection, inage, or ANESTH, HEAD/NECK/PTRUNK Percutaneous Image guided neuromodulatio n or intra Advance Directives Directive Yes / No Effective Date File Name No Information Encounters Encounter Description Practice Location Reason(s) For Visit Diagnoses Date Provider Providers Copied on Encounter [facility], [address] [place], [place], [id number], [facility] No Information 3 Josh Bustamante. [address] [facility], [place], [place], [id number] , . tel:[phone] Referring Provider: Sherri Nick, [address] [facility] [place], [address] . tel:[phone] [facility], [address] [place], [place], [id number], [facility] No Information 3 Jenny Duran. [address] [facility], [place], [place], [id number] , . tel:[phone] Referring Provider: Sherri Nick, [address], [place], [address] . tel:[phone] [facility], [address], [place], [place], [id number], [facility] No Information 3 Romel Toth. [address], [facility], [place], [place], [id number] , [place]. tel:[phone] Referring Provider: Sherri Nick, [facility], [place], [address] . tel:[phone] [facility], [address], [place], [place], [id number], [facility] No Information 3 Jenny Duran. [address], [facility], [place], [place], [id number] , [place]. tel:[phone] Referring Provider: Sherri Nick, [facility], [place], [address] . tel:[phone] [facility], [address], [place], [place], [id number], [facility] No Information 3 Jenny Duran. [address], [facility], [place], [place], [id number] , . tel:[phone] Referring Provider: Sherri Nick, [facility] [place], [address] . tel:[phone] [facility], [address], [place], [place], [id number], [facility] No Information 3 Romel Toth. [address], [facility], [place], [place], [id number] , [place]. tel:[phone] Referring Provider: Sherri Nick, [facility] [place], [address] . tel:[phone] [facility], [address] [place], [place], [id number], [facility] No Information [address] [facility] [address], [place], [place], [id number] , . tel: [phone] Referring Provider: Wallace Rajput [employer] [address], [place], [address]. tel:[phone] [facility], [address] [place], [place], [id number], [facility] No Information [address] [facility] [address], [place], [place], [id number] , . tel: [phone] Referring Provider: Wallace Rajput [employer] [address], [place], [address]. tel:[phone] Family History Family Member Type Diagnosis Age At Onset No Information Payers Payer name Insurance type Covered constitution party ID Authoryisel chavez(s) [facility] [id number] Social History Type Description Quantity Date Captured [...]
== END 2023-06-05 19:26 | disposition home or self-care (01) ==
PROVIDERS: Emergency Provider Student in an Organized Health Care Education/Training Program; PCP Physician Assistant Medical
DX: R07.89 Other chest pain (principal)
CPT/HCPCS: 36415; 71046; 80048; 84484; 85025; 85379; 93005; 96374; 96375; 99283; 99284; 99285; J1885; J2270

== ENCOUNTER 2023-08-03 14:13 | Emergency (ER) | payer MEDICAID, SELFPAY ==
[2023-08-03] VITALS (46 sets, daily range): BP systolic 106–133; BP diastolic 70–85; PULSE 61–84; RESP 6–18; TEMP 36.5; O2SAT 92–100; BMI 28.3
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
[2023-08-03 14:46] LABS: Basophils Percent Auto 0.4 % (0.0-3.0); Eosinophils Percent Auto 1.3 % (0.0-7.0); Hematocrit 41.2 % (33.0-51.0); Hemoglobin* 13.8 gm/dL (12.0-16.0); Immature Granulocytes Pct Auto 0.4 %; Mean Corpuscular HGB Conc 34 gm/dL (32-36); Mean Corpuscular Hemoglobin 31 pg (26-34); Mean Corpuscular Volume 93 fL (80-100); Monocytes Percent Auto 5.6 % (0.0-11.0); Neutrophils Percent Auto 55.3 % (42.0-72.0); Platelet Count* 269 K/uL (140-440); RDW Coefficient of Variation % 14.1 % (11.5-15.5); Red Blood Count 4.41 m/uL (4.00-5.20); White Blood Count* 11.17 K/uL (4.50-11.00)
[2023-08-03] MEDS: NALOXONE 1 MG/ML SYRINGE IV (14:47)
[2023-08-03 14:50] LABS: Slide Review Reflex No
[2023-08-03 14:58] LABS: Albumin* 4.5 g/dL (3.3-5.0); Chloride* 105 mmol/L (96-114)
[2023-08-03 14:59] LABS: Potassium* 3.6 mmol/L (3.6-5.1); Sodium* 138 mmol/L (135-149)
[2023-08-03 15:01] LABS: Creatinine* 1.1 mg/dL (0.5-1.5); Est. Creatinine Clearance* 51.39; Estimated Glomerular Filt Rate 59 ml/min
[2023-08-03 15:02] LABS: Alanine Aminotransferase* 18 U/L (4-35); Alkaline Phosphatase* 117 U/L (40-150); Anion Gap 10 mEq/L (7-15); Aspartate Amino Transferase* 24 U/L (12-35); Bilirubin Direct* 0.4 mg/dL (0.0-0.5); Bilirubin Total* 0.5 mg/dL (0.1-1.5); Blood Urea Nitrogen* 11 mg/dL (7-30); Calcium* 9.4 mg/dL (8.4-10.6); Carbon Dioxide* 23 mmol/L (20-32); Glucose* 96 mg/dL (60-115); Total Protein* 8.3 g/dL (6.0-8.3)
[2023-08-03 15:06] LABS: Ethanol* < 0.01 % (0.01-0.03); Salicylate* < 1.0 mg/dL (1.0-10)
== END 2023-08-03 20:46 | disposition home or self-care (01) ==
PROVIDERS: Family Medicine; Emergency Provider Student in an Organized Health Care Education/Training Program; PCP Physician Assistant Medical
DX: T39.1X1A Poisoning by 4-Aminophenol derivatives, accidental (unintentional), initial encounter (principal)
CPT/HCPCS: 36415; 80048; 80076; 80143; 80179; 80306; 82077; 85025; 86140; 93005; 94761; 99283; 99284; J2310